=== PATIENT | female | born 1940 | race Caucasian/White ===

== ENCOUNTER → 2023-04-17 13:42 | Outpatient (BNVA) | payer MEDICARE, OTHER, SELFPAY | PROVIDERS: PCP Family Medicine; Visit Provider Internal Medicine | DX: R07.9 Chest pain, unspecified (principal) | CPT/HCPCS: 93005 ==

== ENCOUNTER → 2023-04-23 14:48 | Outpatient (BNVA) | payer MEDICARE, OTHER, SELFPAY | PROVIDERS: PCP Family Medicine; Visit Provider Internal Medicine | DX: R07.9 Chest pain, unspecified (principal); I48.91 Unspecified atrial fibrillation | CPT/HCPCS: 93005; 99205 ==

== ENCOUNTER 2023-04-28 05:56 | Outpatient (CLI) | payer MEDICARE, OTHER, SELFPAY ==
[2023-04-28] VITALS (9 sets, daily range): BP systolic 100–160; BP diastolic 62–92; PULSE 74–92; RESP 13–22; TEMP 36.6; O2SAT 90–97; BMI 29.6
--- NOTE | 2023-04-28 06:00 | XACV_ITS ---
Exam Room: 2 Ht: 157 cm Wt: 73 kg BSA: 1.82 m2 Gender: Female : 1940 Any Known Allergies: Other Exam Priority: Routine Procedure(s): Procedure Description: Diagnostic procedure Procedure Description: Left Heart Catheterization Procedure Description: Miscellaneous Procedure Description: Angio-Seal Procedure Description: Coronary Angiography Procedure Description: Pressure Wire Diagnostic Cath Status: Elective Diagnostic Findings * Left Main has no significant disease. * Circumflex has no significant disease. * Mid Left Anterior Descending to Distal Left Anterior Descending: moderate 50% stenosis, GUILLERMINA: 3 flow. * Proximal RCA has patent prior stents. Mid Right Coronary Artery: mild 40% stenosis, GUILLERMINA: 3 flow. * Coronary angiography shows right dominance. Interventional Findings * Procedure detail: Diagnostic procedure was performed through right radial access. However, guide catheter could not be engaged secondary to higher takeoff. We then switched access to right femoral artery. IV heparin was administered to maintain anticoagulation. XB 3.0 guide catheter was used to engage the left main artery. After normalization, we advanced IFR wire into distal LAD to perform FFR of mid LAD. Secondary to irregularity of rhythm and atrial fibrillation, FFR was performed with IV adenosine infusion. FFR value of 0.85 was obtained. As it was nonischemic, medical management was decided. iFR wire and guide catheter were removed. Patient left the Key Worker in a stable condition after Angio-Seal deployment. Conclusions 1. Moderate mid LAD stenosis s/p FFR with a nonischemic value of 0.85. Aggressive medical therapy.. Recommendations * Patient's symptoms related to Atrial fibrillation with RVR. We will plan on SARAH/ Cardioversion. * Continue Xarelto. * Outpatient follow up after cardioversion. Pressures Phase:Rest AO : 80 / 50 ( 62 ) @ 8:48:00 AM 73 / 58 ( 66 ) @ 8:50:00 AM 94 / 65 ( 75 ) @ 8:53:00 AM 97 / 62 ( 76 ) @ 8:53:00 AM 89 / 72 ( 78 ) @ 9:15:00 AM LV : 106 / 1 / 14 @ 8:53:00 AM 106 / 0 / 10 @ 8:53:00 AM Valves Phase:DefaultPhase AV : 8.0 @ 8:51:15 AM AV Mean Gradient: 11.0 @ 8:51:15 AM Clinical Evaluation EBL: 5mL-10mL Procedural Details Procedure Consent Obtained. Pre-Procedure Time Out. Identified patient by full name and date of as verbalized by the patient/guarantor. Does the consent match the physician's order: Yes. Accurate & Complete Informed Consent: Yes. Inpatient/Outpatient History & Physical on Chart: Yes. If H&P is completed, is and addenduem needed: No; If yes, is the addendum complete: N/A. Visualize and Verify Site with Patient/Guarantor: N/A. Relevant Radiology Images available: Yes. Pre-op teaching completed and patient verbalized understanding. The risks, benefits, and alternatives of sedation and/or procedure were discussed by physician. The patient agrees to continue. Procedure started. Current Diagnosis : Chest Pain. HA Clinical Fraility Score: 3: Managing Well. Key Worker Indications: Worsening Angina. Chest Pain Symptom Assessment: Typical Angina Symptoms. Correct patient, site and procedure confirmed by cath team. Current diagnosis: Chest Pain. PERRLA. Strong, equal hand stock lifter bilaterally. Lungs clear x 5 lobes. IV Site on Arrival: 20 gauge in the left anticubital. IV Fluids: 0.9% NaCl at KVO. 0 mL infused prior to chemical processing laborer. Pre Procedural Pulses: bilateral posterior tibial was 3+. Pre Procedural Pulses: bilateral dorsalis pedis was 3+. Pre Procedural Pulses: bilateral radial was 3+. Oxygen started at 2liters/min via nasal canula. right groin was prepped with chloroprep then draped in the usual sterile fashion. right radial was prepped with chloroprep then draped in the usual sterile fashion. Baseline sample Acquired. HR: 96 BPM. Lidocaine 1% infiltrated to the right radial. Arterial access obtained. A 5 trinidadian TIG catheter in over wire. Multiple views taken of left coronary artery. Catheter redirected to the RCA. Multiple views taken of right coronary artery. EDP Sample taken: LV 106/1,14; HR: 88 BPM; SpO2: 95%. Pullback taken: LV 106/-1,10; AO 94/65(75); Mean: 11mmHg, Peak to Peak: 8mmHg, SEP: 8sec/min; HR: 93 BPM; SpO2: 94%. Catheter removed over the exchange wire. 6 trinidadian XB 3 guide catheter was inserted over the wire. Guide catheter out. 6 trinidadian XB 3.5 guide catheter was inserted over the wire. Guide catheter out. A TR Band was successful obtaining hemostatsis at the Right Radial artery insertion site. Lidocaine 1% infiltrated to the right groin. Arterial access obtained with micropuncture set. 6 trinidadian XB 3 guide catheter was inserted over the wire. FFR guidewire was advanced through the guide catheter to lesion in the mid LAD. Adenosine off. FFR Results: 0.85. Wire out. Guide catheter out. A Right femoral angiogram was performed to determine safe placement of closure device. ACT drawn. Results 236 seconds. Therapeutic limits - pre-heparin administration 90-150 seconds and monitoring heparin during a vascular procedure >250 seconds. Lidocaine 1% infiltrated to the right groin. A Angio-Seal VIP ([place]) was successful obtaining hemostatsis at the Right Femoral artery insertion site. Post Procedure: Pulses reassessed and unchanged. PERRLA. Strong, equal hand stock lifter bilaterally. No VTE prophylaxis required. Medication's Wasted: Lidocaine 1% = 2 mL. Medication's Wasted: Nitro = 49.7 mcg. Medication's Wasted: Other = Fentanyl 50mcg Versed 1 mg. Total IV fluids: 65 mL. Complications: None. Responsiveness - Normal response to verbal stimuli; alert and oriented, PERRLA. Estimated blood loss: 5mL-10mL. Vital chart was stopped. Airway - Unaffected, no intervention required; spontaneous ventilation. Circulation: W/N/L, pulses unchanged. Nausea/Vomiting: No. Procedure completed. Patient transferred by bed to CPRU. Access Site Site: Right Radial artery Sheath Size: 6 Fr Hemostasis Method: TR Band Hemostasis Success: Successful Site: Right Femoral artery Sheath Size: 6 Fr Hemostasis Method: Angio-Seal VIP ([place]) Hemostasis Success: Successful Procedure Medications Start: 7:37 AM Stop: 7:37 AM Medication: Versed Amount: 1 mg Route: I.V. Start: 7:37 AM Stop: 7:37 AM Medication: Fentanyl Amount: 50 mcg Route: I.V. Start: 7:45 AM Stop: 7:45 AM Medication: Versed Amount: 1 mg Route: I.V. Start: 7:46 AM Stop: 7:46 AM Medication: Nitrogylcerin Amount: 200 mcg Route: I.A. Start: 7:47 AM Stop: 7:47 AM Medication: Heparin Amount: 5000 units Route: I.V. Start: 7:58 AM Stop: 7:58 AM Medication: Heparin Amount: 1000 units Route: I.V. Start: 8:03 AM Stop: 8:03 AM Medication: Nitrogylcerin Amount: 100 mcg Route: I.A. Start: 8:11 AM Stop: 8:11 AM Medication: Versed Amount: 1 mg Route: I.V. Start: 8:19 AM Stop: 8:19 AM Medication: Adenosine (Adenocard) Amount: 613 ml/hr Route: I.VGabby rodríguez I, the attending physician, have reviewed and verified all procedure medications. Yes, all medications given per verbal order History/Risk Factors Hypertension: Yes Dyslipidemia: Yes Peripheral Arterial Disease (PAD): No Myocardial Infarction (SC): No Obesity: No Renal Disease: No Tobacco Use: Never Prior Interventions PCI: No CABG: No Valve Surgery: No Report Signatures Finalized by Myles Quintero MD on 04/28/2023 09:43 AM
[2023-04-28] MEDS: aspirin 325 mg Tablet PO (06:30)
[2023-04-28] MEDS: diphenhydrAMINE 50 mg Capsule PO (06:30)
[2023-04-28 06:43] LABS: Basophils # 0.1 10^3/uL (0.0-0.1); Basophils % 0.6 %; Eosinophils # 0.2 10^3/uL (0.0-0.8); Eosinophils % 2.6 %; Hematocrit 43.3 % (36-47); Lymphocytes # 2.1 10^3/uL (0.8-4.8); Lymphocytes % 26.8 %; Mean Corpuscular HGB Conc 32.8 g/dL (30-55); Mean Corpuscular Volume 88.5 fl (85-98); Mean Platelet Volume 9.4 fL (7.4-10.4); Monocytes # 0.5 10^3/uL (0.2-0.9); Monocytes % 6.8 %; Neutrophils # 4.89 10^3/uL (1.8-7.7); Neutrophils % 62.9 %; Nucleated Red Blood Cells % 0 %; Platelet Count 270 10^3/cmm (157-399); Red Blood Count 4.89 10^6/uL (3.85-5.65); Red Cell Distribution Width 13.6 % (12.1-15.1); White Blood Count 7.77 10^3/uL (3.29-11.43)
[2023-04-28 07:03] LABS: Anion Gap 13.9 (5-19); Blood Urea Nitrogen 12 mg/dL (8-23); Calcium 9.3 mg/dL (8.5-10.5); Carbon Dioxide 26 mmol/L (22-29); Chloride 103 mmol/L (98-107); Glucose 101 mg/dL (65-115); Osmolality Calculated 288 mOsm/kg (285-295); Potassium 3.9 mmol/L (3.5-5.1); Sodium 139 mmol/L (136-145)
--- NOTE | 2023-04-28 07:32 | P.HPUD_ITS ---
Surgery/Procedure H&P Update DATE OF PROCEDURE: April 28, 2023 DATE H&P PERFORMED: 04/23/23 H&P UPDATE INFORMATION: I have reviewed H&P completed within last 30 days, I have examined patient prior to procedure and No changes to prior documentation PREOP DIAGNOSIS: Worsening angina PRIMARY INDICATION FOR PROCEDURE: Worsening angina PLANNED PROCEDURE: Operation Date: 04/28/23 07:00 Proposed Procedures p [facility] [address]84,I20.0(Left) - Myles Quintero M.D Possible percutaneous coronary intervention PATIENT REASSESSED PRIOR TO SEDATION, WITH NO CHANGE NOTED: Yes PHYSICAL EXAM: alert, oriented x 3, clear to auscultation bilaterally and regular rate & rhythm AIRWAY EVAL/ANESTHESIA PLAN: normal airway, ASA III, Local Anesthesia, Risks, benefits & alternatives of sedation and/or procedure discussed and Patient agrees to continue as planned ADDITIONAL INFORMATION: Moderate sedation
--- NOTE | 2023-04-28 08:40 | SUR.PHASEI ---
POST CATH NOTE Received patient from qc lab technician. Status post cardiac catheterization via the right radial and right femoral approach. TR band in place to the right wrist- dry and intact with no s/s of hematoma formation noted. Right femoral approach closed intra procedure with angioseal- site is dry and intact with no s/s of hematoma present. Verbal post cath instructions given which she understood well. Call light within easy reach. Informed to call for needs.
--- NOTE | 2023-04-28 09:44 | PC.NURSE ---
Patient comes to CSU from lab support service tech at 0945. She has a right radial TR-band and a right arterial sheath site that was closed with angioseal. Dressing is dry and no hematomas noted.
[2023-04-28] MEDS: sodium chloride 0.9% 1,000 ML 50 ML IV (09:49)
--- NOTE | 2023-04-28 15:42 | PC.NURSE ---
Patient comes from cath laboratory technician with a right radial TR-band. 2ml's of air is removed from TR-band at 1136. 2ml's of air is removed from TR-band at 1218. 2ml's of air is removed from TR-band at 1315. 2ml's of air is removed from TR-band at 1400. 2ml's of air is removed at 1430. 2ml's of air is removed at 1509. TR-band is removed at 1530. No hematoma is noted. Patient tolerated well.
== END 2023-04-28 17:19 | disposition home or self-care (01) ==
LOC: CCL 05:58 → CSU 10:18
PROVIDERS: PCP Family Medicine; Visit Provider Internal Medicine
DX: I25.110 Atherosclerotic heart disease of native coronary artery with unstable angina pectoris (principal); I10 Essential (primary) hypertension; E78.5 Hyperlipidemia, unspecified; I48.91 Unspecified atrial fibrillation; Z95.0 Presence of cardiac pacemaker
CPT/HCPCS: 36415; 80048; 85025; 85347; 93458; 93571; 96361; 96365; 96367; 99152; 99153; C1760; C1769; C1887; C1894; J0153; J1644; J2250; J3010; J3490; J7030; Q0163; Q9967

== ENCOUNTER 2023-05-02 10:27 | Day surgery (SDC) | payer MEDICARE, OTHER, SELFPAY ==
--- NOTE | 2023-05-02 10:33 | ECG_ITS ---
[facility] Test Date: 2023-05-02 Pat Name: Sunny Soria Department: Room: Gender: Female Assembler Final: : 1940 Requested By: Myles Quintero Order Number: [id number] Abel MD: Myles Qunitero M.D. Measurements Intervals [place] Rate: 89 P: 0 [place]: 0 QRS: -58 QRSD: 102 T: 89 QT: 385 QTc: 470 Interpretive Statements ATRIAL FIBRILLATION WITH ABERRANT CONDUCTION OR VENTRICULAR PREMATURE COMPLEXES INCOMPLETE RIGHT BUNDLE BRANCH BLOCK [90+ ms QRS DURATION, TERMINAL R IN V1/V2, 40+ ms S IN I/aVL/V4/V5/V6] LEFT ANTERIOR FASCICULAR BLOCK [QRS AXIS <= -45, QR IN I, RS IN II] POSSIBLE ANTERIOR MYOCARDIAL INFARCTION , OF INDETERMINATE AGE [30 ms Q WAVE IN V3/V4, OR R < 0.2 mV IN V4] Compared to ECG 04/23/2023 15:02:49 Ventricular premature complex(es) now present Aberrant conduction of supraventricular beat(s) now present Incomplete right bundle-branch block now present Myocardial infarct finding still present Electronically Signed On 05-02-2023 12:31:33 CDT by Myles Quintero M.D. [email or web address] urbana [email or web address]/[id number]
--- NOTE | 2023-05-02 10:34 | USCV_ITS ---
Sunny Soria Age: 82 Gender: F : 1940 Exam Date: 05/02/2023 12:13 Ordering Phys: Myles Quintero M.D ([email or web address]) Technologist: Claudio Jacob Exam Location: [facility] Indication: afib BP: / HR: Rhythm: Sinus Technical Quality: Adequate MEASUREMENTS (Male / Female) Normal Values Medications Complications None Proc. Components After anesthesia team administered sedation, we proceeded with advancing SARAH probe and images were obtained. FINDINGS Left Ventricle Normal in size and function Right Ventricle Normal in size Right Atrium Grossly normal. Pacemaker lead is seen Left Atrium Grossly dilated LA Appendage No left atrial appendage thrombus seen IA Septum Normal Mitral Valve Strucrurally normal mitral valve. Mild to moderate mitral regurgitation Aortic Valve Structurally normal aortic valve. Tricuspid Valve Structurally normal. Mild to moderate tricuspid regurgitation Pulmonic Valve Grossly normal Pericardium Normal Aorta Has moderate atherosclerotic plaque noted. CONCLUSIONS LV systolic function is normal. Left atrium is grossly dilated. No left atrial appendage thrombus seen. Mild to moderate mitral regurgitation Mild to moderate tricuspid regurgitation Moderate atherosclerotic plaque noted in the aorta Myles Quintero MD (Electronically Signed) Final Date: 03 May 2023 11:12 S
[2023-05-02 10:47] VITALS: BP 131/78; PULSE 77; RESP 20; TEMP 36.4; O2SAT 97; BMI 29.2
--- NOTE | 2023-05-02 11:06 | P.ANESASSM_ITS ---
Pre-Anesthetic Assessment Height/Weight: Height 1.57 m Weight 72.575 kg Temp Pulse Resp BP Pulse Ox O2 Del Method 97.5 F L 77 20 H 131/78 97 Room Air 05/02/23 10:47 05/02/23 10:47 05/02/23 10:47 05/02/23 10:47 05/02/23 10:47 05/02/23 10:47 Operation Date: 05/02/23 12:00 Proposed Procedures p SARAH 512115/[id number],I48.91(Not Applicable) - Bekah Stewart Cardioversion(Not Applicable) - Myles Quintero M.D Familial anesthetic complications: None Was Beta Anh taken within 24 hours: Yes Was Clonidine taken within 24 hours: N/A Last intake: Intake Last Liquid Date 05/01/23 Last Liquid Time 19:00 Last Solid Date 05/01/23 Last Solid Time 16:00 Social No alcohol and No tobacco Exam alert, oriented x 3, clear to auscultation bilaterally and regular rate & rhythm Airway Mallampati: Class II Dentition: other (multiple missing) CV/HEM Atrial Fibrillation (pacemaker), Stable Angina, Coronary Artery Disease (Moderate LAD stenosis, medically treated) and Hypertension Anesthetic Plan ASA status: 3 Anesthesia: MAC Risk of > 500 ml blood loss (7ml/kg in children): No Medications/Allergies Home Medications Medication Instructions Recorded Confirmed Last Taken Type amlodipine 5 mg tablet (Norvasc) 5 mg PO DAILY 04/17/23 04/30/23 05/02/23 History atenolol 25 mg tablet 25 mg PO DAILY 04/17/23 04/30/23 05/02/23 History nitroglycerin 0.4 mg sublingual 0.4 mg sublingual Q5M PRN Pain 04/17/23 04/30/23 Unknown History tablet (Nitrostat) acetaminophen 500 mg tablet 500 mg PO Q6H PRN Pain 04/23/23 04/30/23 05/01/23 History (Tylenol Extra Strength) alirocumab 150 mg/mL subcutaneous 150 mg SUBCUT Q14D 04/23/23 04/30/23 04/30/23 History pen injector (Praluent Pen) rivaroxaban 20 mg tablet (Xarelto) 20 mg PO DAILY 04/23/23 04/30/23 05/01/23 History tramadol 50 mg tablet 50 mg PO BID PRN Pain 04/23/23 04/30/23 05/01/23 History metoprolol tartrate 50 mg tablet 50 mg PO BID #28 tabs 04/24/23 04/30/23 05/02/23 Rx Allergies Allergy/AdvReac Type Severity Reaction Status Date / Time Crhxiod-RHN-CvE Reductase Allergy Mild ADR-Muscle Verified 04/28/23 08:24 Inhibitor Pain codeine Allergy Unknown Unknown Verified 04/28/23 08:24 nitrofurantoin Allergy Unknown Unknown Verified 04/28/23 08:24 [From Macrobid] [facility] Anesthesia Medical History A-fib Coronary artery disease HTN (hypertension) Hyperlipemia Pacemaker Data Anesthesia Cardiac Studies: No Data to Display
[2023-05-02] MEDS: sodium chloride 0.9% 1,000 ML 30 ML IV (11:10)
--- NOTE | 2023-05-02 11:51 | W.PM.OPSUD ---
Surgery/Procedure H&P Update DATE OF PROCEDURE: May 02, 2023 DATE H&P PERFORMED: 04/23/23 H&P UPDATE INFORMATION: I have reviewed H&P completed within last 30 days, I have examined patient prior to procedure and Changes to prior documentation as noted here CHANGES TO PREVIOUS DOCUMENTATION: Patient is staying in afib and becomes very symptomatic with it. PREOP DIAGNOSIS: Atrial fibrillation PRIMARY INDICATION FOR PROCEDURE: Atrial fibrillation PLANNED PROCEDURE: Operation Date: 05/02/23 12:00 Proposed Procedures p SARAH [id number],I48.91(Not Applicable) - Myles Quintero M.D s Cardioversion(Not Applicable) - Myles Quintero M.D
[2023-05-02 12:30] VITALS: BP 92/58; PULSE 63; RESP 18; TEMP 36.1; O2SAT 95
--- NOTE | 2023-05-02 12:37 | PM.PROC ---
Procedure Note: Date of procedure: 05/02/23 Pre-procedure diagnosis: Atrial fibrillation Post-procedure diagnosis: other (Normal sinus rhythm) Procedure: SARAH/Cardioversion: After anesthesia team administered sedation, we proceeded with transesophageal echocardiogram. Left atrial appendage thrombus was ruled out. With proceeded with cardioversion. Patient was successfully cardioverted with synchronized cardioversion with 1 shock of 200 J energy. Patient was in normal sinus rhythm at the end of procedure. Performing Provider: Myles Quintero Complications: None Pathology: none sent Condition: stable Disposition: same day Coding Level of Care Code Acute Code for [facility]
[2023-05-02 12:45] VITALS: BP 118/67; PULSE 65; RESP 16; O2SAT 98
--- NOTE | 2023-05-02 12:46 | ECG_ITS ---
[facility] Test Date: 2023-05-02 Pat Name: Sunny Soria Department: Room: Gender: Female Reconsignment Clerk: : 1940 Requested By: Myles Quintero Order Number: [id number] Abel MD: Myles Quintero M.D. Measurements Intervals [place] Rate: 59 P: 209 [place]: 212 QRS: -53 QRSD: 97 T: 30 QT: 404 QTc: 403 Interpretive Statements ELECTRONIC ATRIAL PACEMAKER LOW QRS VOLTAGE IN PRECORDIAL LEADS [QRS DEFLECTION < 1.0 mV IN CHEST LEADS] PATTERN CONSISTENT WITH PULMONARY DISEASE LEFT ANTERIOR FASCICULAR BLOCK [QRS AXIS <= -45, QR IN I, RS IN II] NONSPECIFIC T-WAVE ABNORMALITY Compared to ECG 05/02/2023 11:01:03 Low QRS voltage now present T-wave abnormality now present Atrial fibrillation no longer present Ventricular premature complex(es) no longer present Myocardial infarct finding no longer present Electronically Signed On 05-02-2023 19:44:38 CDT by Myles Quintero M.D. [id number]
--- NOTE | 2023-05-02 13:20 | ANE.PACU2 ---
Inpatient post-anesthesia follow up: Airway intact: Yes Vital signs: Temperature 97.0 F Pulse Rate 65 Respiratory Rate 16 Blood Pressure 118/67 Pulse Oximetry 98 Oxygen Delivery Me thod Room Air Oxygen Flow Rate Fraction of Inspir ed Oxygen Hydration adequate: Yes Nausea and vomiting: No Pain level: 1 Mental status: Baseline
== END 2023-05-02 13:20 | disposition home or self-care (01) ==
PROVIDERS: PCP Family Medicine; Visit Provider Internal Medicine
PROC: (CPT 93312; principal; 2023-05-02 12:00)
PROC: 5A2204Z Restoration of Cardiac Rhythm, Single (ICD-10-PCS; 2023-05-02 12:00)
DX: I48.91 Unspecified atrial fibrillation (principal); I08.1 Rheumatic disorders of both mitral and tricuspid valves; I45.10 Unspecified right bundle-branch block; Z95.0 Presence of cardiac pacemaker; I25.10 Atherosclerotic heart disease of native coronary artery without angina pectoris; I10 Essential (primary) hypertension
CPT/HCPCS: 92960; 93005; J2704; J7030

== ENCOUNTER → 2023-05-05 09:23 | Outpatient (BNVA) | payer MEDICARE, OTHER, SELFPAY | PROVIDERS: PCP Family Medicine; Visit Provider Nurse Practitioner Family | DX: I20.0 Unstable angina (principal); I48.91 Unspecified atrial fibrillation; I10 Essential (primary) hypertension; Z95.0 Presence of cardiac pacemaker | CPT/HCPCS: 93005 ==

== ENCOUNTER → 2023-06-24 13:50 | Outpatient (BNVA) | payer MEDICARE, OTHER, SELFPAY | PROVIDERS: PCP Family Medicine; Referring Provider Family Medicine; Visit Provider Nurse Practitioner Family | DX: L57.0 Actinic keratosis (principal); L81.4 Other melanin hyperpigmentation; L57.8 Other skin changes due to chronic exposure to nonionizing radiation; D18.01 Hemangioma of skin and subcutaneous tissue; L82.1 Other seborrheic keratosis; Z85.820 Personal history of malignant melanoma of skin; D48.5 Neoplasm of uncertain behavior of skin | CPT/HCPCS: 11102; 17000; 99203 ==

== ENCOUNTER 2023-07-23 11:44 | Outpatient (CLI) | payer MEDICARE, OTHER, SELFPAY ==
--- NOTE | 2023-07-23 11:50 | NM_ITS ---
WS: [id number] NUCLEAR MEDICINE 24 HOUR I-123 THYROID UPTAKE INDICATION: Thyroid disorder. History of nodule. Abnormal thyroid function studies. TECHNIQUE: I-123 24 HOUR THYROID UPTAKE WITH PLANAR IMAGING. 111 UCI I-123 COMPARISON: None available FINDINGS: Normal symmetric homogenous thyroid uptake at 24 hours. No cold or hot nodules visualized. Recommend correlation with thyroid ultrasound if available. 24-hour thyroid uptake at 12.42% within normal limits. NORMAL 24H THRYOID UPTAKE 8-35% IMPRESSION: 24-hour thyroid uptake 12.42% within normal limits
== END 2023-07-23 11:45 | disposition home or self-care (01) ==
PROVIDERS: PCP Family Medicine; Visit Provider Specialist
DX: E07.9 Disorder of thyroid, unspecified (principal)
CPT/HCPCS: 78014; A9516

== ENCOUNTER → 2023-08-15 10:37 | Outpatient (BNVA) | payer MEDICARE, OTHER, SELFPAY | PROVIDERS: PCP Family Medicine; Visit Provider Internal Medicine Cardiovascular Disease | DX: I48.91 Unspecified atrial fibrillation (principal); Z79.01 Long term (current) use of anticoagulants; Z95.0 Presence of cardiac pacemaker; I10 Essential (primary) hypertension; E78.5 Hyperlipidemia, unspecified; Z98.890 Other specified postprocedural states; Z87.891 Personal history of nicotine dependence | CPT/HCPCS: 99214 ==

== ENCOUNTER → 2023-09-10 11:02 | Outpatient (BNVA) | payer MEDICARE, OTHER, SELFPAY | PROVIDERS: PCP Family Medicine; Referring Provider Specialist; Visit Provider Internal Medicine | DX: E04.1 Nontoxic single thyroid nodule (principal); E05.90 Thyrotoxicosis, unspecified without thyrotoxic crisis or storm; I48.91 Unspecified atrial fibrillation; R63.4 Abnormal weight loss; Z68.28 Body mass index [BMI] 28.0-28.9, adult | CPT/HCPCS: 36415; 83516; 84439; 84443; 84480; 86376; 86800; 99204 ==

== ENCOUNTER → 2023-10-01 13:28 | Outpatient (BNVA) | payer MEDICARE, OTHER, SELFPAY | PROVIDERS: PCP Family Medicine; Visit Provider Surgery | DX: Z12.11 Encounter for screening for malignant neoplasm of colon (principal) | CPT/HCPCS: 99024; 99203 ==

== ENCOUNTER → 2023-10-15 10:57 | Outpatient (BNVA) | payer MEDICARE, OTHER, SELFPAY | PROVIDERS: PCP Family Medicine; Visit Provider Nurse Practitioner Family | DX: I48.0 Paroxysmal atrial fibrillation (principal); I25.10 Atherosclerotic heart disease of native coronary artery without angina pectoris; I10 Essential (primary) hypertension; Z95.0 Presence of cardiac pacemaker; Z87.891 Personal history of nicotine dependence; Z79.01 Long term (current) use of anticoagulants | CPT/HCPCS: 99214 ==

== ENCOUNTER 2023-10-22 07:24 | Outpatient (CLI) | payer MEDICARE, OTHER, SELFPAY ==
[2023-10-22 07:49] VITALS: BMI 28.3
--- NOTE | 2023-10-22 07:54 | ECG_ITS ---
[facility] Test Date: 2023-10-22 Pat Name: Sunny Soria Department: Room: Gender: Female Document Processor: : 1940 Requested By: Roxanne Matthew Order Number: [id number] Abel MD: Maurisio Bess M.D. Interpretive Statements NAME OF STUDY: LEXISCAN SESTAMIBI STRESS TEST INDICATION: CHEST PAIN; RAY; MODERATE CAD PROCEDURE: At the baseline, the EKG revealed atrial fibrillation with a controlled ventricular response rate of 88 bpm. Diffuse nonspecific T wave changes. Minimal left axis deviation. The baseline heart was 85 bpm with a blood pressue of 131/86 mm of Hg Lexiscan was infused over a period of 20 seconds. A total of 0.4 milligrams of Lexiscan was infused. The stress phase was continued for a total of 5 minutes. Heart rate at the end of the stress phase was 91 bpm with a blood pressure 105/76 mm of Hg. The EKG at the peak infusion revealed no significant changes. Sestamibi was injected 20 seconds after the Lexiscan infusion. Heart rate at the end of the recovery phase was 51 bpm with a blood pressure of 100/67 mm of Hg. CONCLUSION: 1. No significant EKG changes with the LexiScan infusion 2. No LexiScan induced chest pain or cardiac arrhythmia 3. Normal blood pressure and heart rate response 4. Sestamibi/sestamibi perfusion scan pending; see separate report. Electronically Signed On 10-27-2023 23:49:52 CDT by Mauirsio Bess M.D. [email or web address]ologic[facility].Peer60/store/[id number]
--- NOTE | 2023-10-22 07:54 | NMCV_ITS ---
NM kathi perf SPECT r/s* [id number] Sunny Soria Age: 83 Gender: F : 1940 Exam Date: 10/22/2023 08:07 Ordering Phys: Roxanne Matthew Technologist: KM Hall Exam Location: [facility] Indications: ATHEROSCLEROTIC HEART DISEASE STRESS TEST Please see separate [facility] for full findings IMAGE PROTOCOL Rest/Stress 1 Lexiscan Day Radiopharmaceutical Dose (mCi) Administration Site Administered by Rest: Tc-99m 10.4 IV MK Martin Sestamibi Stress:Tc-99m 32.5 IV MK Martin Sestamibi Rest: 22-Oct-2023 60 Discovery 630 Stress: 22-Oct-2023 30 Discovery 630 0.4mg Lexiscan. Supine position only as patient was unable to lay prone. SPECT RESULTS Technical Quality: Excellent Raw Data Analysis: Normal Image Corrections: No attenuation or motion correction applied Summed Stress Score: 2 Summed Rest Score: 8 Summed Difference Score: 0 PERFUSION FINDINGS Small area of moderately decreased tracer uptake involving the mid inferolateral region with no significant reversibility FUNCTIONAL RESULTS (calculated via Gated SPECT) Stress Image LV EF (%): 85 Stress EDV (mL):59 TID: 1 Stress ESV (mL):9 FUNCTIONAL FINDINGS: Segmental wall motion analysis revealing no gross wall motion abnormalities IMPRESSIONS 1. Myocardial perfusion imaging revealing a small area of persistent decreased tracer uptake involving the mid inferolateral region suggestive of myocardial scarring versus attenuation artifact. 2. Normal LV ejection fraction of 59% 85%. 3. LV wall motion analysis revealing no gross wall motion abnormalities. 4. Normal LV volume Low probability for coronary ischemia, based on the above findings Dr Maurisio Bess MD FACC (Electronically Signed) Final Date: 22 October 2023 13:26 S
[2023-10-22] MEDS: regadenoson 0.4 Mg/5 ml Syringe 0.400000000000000022 MG IVP (09:00)
[2023-10-22 09:29] VITALS: BP 106/74; PULSE 85
== END 2023-10-22 07:25 | disposition home or self-care (01) ==
LOC: CDL 07:25
PROVIDERS: PCP Family Medicine; Visit Provider Nurse Practitioner Family
DX: R07.9 Chest pain, unspecified (principal); R06.00 Dyspnea, unspecified; I25.10 Atherosclerotic heart disease of native coronary artery without angina pectoris
CPT/HCPCS: 36415; 78452; 93017; 96374; A9500; J2785

== ENCOUNTER 2023-11-03 08:27 | Outpatient (CLI) | payer MEDICARE, OTHER, SELFPAY ==
[2023-11-03 09:17] LABS: Free T4 Free Thyroxine 1.15 ng/dL (0.82-1.77); Thyroid Stimulating Hormone 0.82 uIU/mL (0.27-4.20)
[2023-11-04 10:40] LABS: T3 Total 110 ng/dL (76-181)
== END 2023-11-03 08:28 | disposition home or self-care (01) ==
LOC: LAB 08:28
PROVIDERS: PCP Family Medicine; Visit Provider Internal Medicine
DX: E04.1 Nontoxic single thyroid nodule (principal); E05.90 Thyrotoxicosis, unspecified without thyrotoxic crisis or storm
CPT/HCPCS: 84439; 84443; 84480

== ENCOUNTER → 2023-11-06 13:01 | Outpatient (BNVA) | payer MEDICARE, OTHER, SELFPAY | PROVIDERS: PCP Family Medicine; Visit Provider Internal Medicine | DX: I25.118 Atherosclerotic heart disease of native coronary artery with other forms of angina pectoris (principal); I48.0 Paroxysmal atrial fibrillation; E78.5 Hyperlipidemia, unspecified; I10 Essential (primary) hypertension; Z95.0 Presence of cardiac pacemaker; Z87.891 Personal history of nicotine dependence | CPT/HCPCS: 99214 ==

== ENCOUNTER → 2023-11-11 11:04 | Outpatient (BNVA) | payer MEDICARE, OTHER, SELFPAY | PROVIDERS: PCP Family Medicine; Visit Provider Internal Medicine | DX: I48.0 Paroxysmal atrial fibrillation (principal); E05.90 Thyrotoxicosis, unspecified without thyrotoxic crisis or storm; E04.1 Nontoxic single thyroid nodule; R63.4 Abnormal weight loss; Z68.29 Body mass index [BMI] 29.0-29.9, adult | CPT/HCPCS: 99214 ==

== ENCOUNTER 2023-11-17 10:27 | Day surgery (SDC) | payer MEDICARE, OTHER, SELFPAY ==
--- NOTE | 2023-11-17 10:38 | ECG_ITS ---
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 Measurements Intervals [place] Rate: 83 P: 0 NC: 0 QRS: -52 QRSD: 100 T: 33 QT: 357 QTc: 421 Interpretive Statements ATRIAL FIBRILLATION PATTERN CONSISTENT WITH PULMONARY DISEASE INCOMPLETE RIGHT BUNDLE BRANCH BLOCK [90+ ms QRS DURATION, TERMINAL R IN V1/V2, 40+ ms S IN I/aVL/V4/V5/V6] LEFT ANTERIOR FASCICULAR BLOCK [QRS AXIS <= -45, QR IN I, RS IN II] NONSPECIFIC T-WAVE ABNORMALITY Compared to ECG 05/02/2023 12:46:00 Incomplete right bundle-branch block now present Atrial-paced complex(es) or rhythm no longer present T-wave abnormality still present Electronically Signed On 11-17-2023 12:51:03 CDT by Myles Quintero M.D. [id number]
[2023-11-17 10:44] VITALS: BP 125/78; PULSE 90; RESP 18; TEMP 36.5; O2SAT 95; BMI 28.3
[2023-11-17] MEDS: sodium chloride 0.9% 1,000 ML 30 ML IV (11:02)
--- NOTE | 2023-11-17 12:11 | W.PM.OPSUD ---
Surgery/Procedure H&P Update DATE OF PROCEDURE: November 17, 2023 DATE H&P PERFORMED: 11/06/23 H&P UPDATE INFORMATION: I have reviewed H&P completed within last 30 days, I have examined patient prior to procedure and No changes to prior documentation PREOP DIAGNOSIS: Atrial fibrillation PRIMARY INDICATION FOR PROCEDURE: Atrial fibrillation PLANNED PROCEDURE: Operation Date: 11/17/23 12:00 Proposed Procedures p Cardioversion(Not Applicable) - Myles Quintero M.D Anesthesia team available for cardioversion.
[2023-11-17 12:26] VITALS: BP 93/52; PULSE 67; RESP 10; TEMP 36.3; O2SAT 94
--- NOTE | 2023-11-17 12:26 | PM.PROC ---
Procedure Note: Date of procedure: 11/17/23 Pre-procedure diagnosis: Atrial fibrillation Post-procedure diagnosis: other (Normal sinus rhythm) Procedure: Procedure detail: After anesthesia team sedated the patient, we proceed with synchonized cardioversion with 200J shock x 1. Patient converted successfully back to normal sinus rhythm. Performing Provider: Myles Quintero Complications: None Condition: stable Disposition: same day (Discharge home) Coding Level of Care Code Acute Code for Lincoln Cooper
[2023-11-17 12:37] VITALS: BP 95/57; PULSE 60; RESP 14; O2SAT 95
--- NOTE | 2023-11-17 12:37 | ECG_ITS ---
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 Measurements Intervals [place] Rate: 61 P: 250 MI: 218 QRS: -51 QRSD: 104 T: 8 QT: 421 QTc: 424 Interpretive Statements ELECTRONIC ATRIAL PACEMAKER LEFT ANTERIOR FASCICULAR BLOCK [QRS AXIS <= -45, QR IN I, RS IN II] POSSIBLE ANTERIOR MYOCARDIAL INFARCTION , OF INDETERMINATE AGE [30 ms Q WAVE IN V3/V4, OR R < 0.2 mV IN V4] Compared to ECG 11/17/2023 10:52:28 Myocardial infarct finding now present Atrial fibrillation no longer present Incomplete right bundle-branch block no longer present T-wave abnormality no longer present Electronically Signed On 11-17-2023 12:54:19 CDT by Myles Quintero M.D. [id number]
--- NOTE | 2023-11-17 13:05 | ANES.PREANE2 ---
Pre-Anesthetic Assessment Height/Weight: Height 1.57 m Weight 70.307 kg Temp Pulse Resp BP Pulse Ox O2 Del Method 97.3 F L 60 14 95/57 95 Room Air 11/17/23 12:26 11/17/23 12:37 11/17/23 12:37 11/17/23 12:37 11/17/23 12:37 11/17/23 12:37 Preop Diagnosis: Atrial fibrillation Operation Date: 11/17/23 12:00 Proposed Procedures p Cardioversion(Not Applicable) - Myles Quintero M.D Familial anesthetic complications: none Was Beta Anh taken within 24 hours: Yes Was Clonidine taken within 24 hours: N/A Last intake: Intake Last Liquid Date 11/16/23 Last Liquid Time 22:00 Last Solid Date 11/16/23 Last Solid Time 20:00 Social No alcohol and No tobacco Exam alert, oriented x 3 and clear to auscultation bilaterally Airway Submandibular: within normal limits Cervical ROM: within normal limits Mallampati: Class II Dentition: full CV/HEM Atrial Fibrillation, Coronary Artery Disease and Hypertension Pacemaker Metabolic Hyperlipidemia Anesthetic Plan ASA status: 3 Anesthesia: MAC Medications/Allergies Home Medications Medication Instructions Recorded Confirmed Last Taken Type amlodipine 5 mg tablet (Norvasc) 5 mg PO DAILY 04/17/23 11/13/23 11/17/23 History nitroglycerin 0.4 mg sublingual 0.4 mg sublingual Q5M PRN Pain 04/17/23 11/13/23 Unknown History tablet (Nitrostat) acetaminophen 500 mg tablet 500 mg PO Q6H PRN Pain 04/23/23 11/13/23 11/16/23 History (Tylenol Extra Strength) alirocumab 150 mg/mL subcutaneous 150 mg SUBCUT Q14D 04/23/23 11/13/23 11/12/23 History pen injector (Praluent Pen) rivaroxaban 20 mg tablet (Xarelto) 20 mg PO DAILY 04/23/23 11/13/23 11/16/23 History tramadol 50 mg tablet 50 mg PO BID PRN Pain 04/23/23 11/13/23 11/16/23 History metoprolol tartrate 50 mg tablet 75 mg (1.5 x 50 mg) PO BID #135 09/05/23 11/13/23 11/17/23 Rx tabs Allergies Allergy/AdvReac Type Severity Reaction Status Date / Time Tmleaxs-HLT-DoA Reductase Allergy Mild ADR-Muscle Verified 11/13/23 08:19 Inhibitor Pain codeine Allergy Unknown Unknown Verified 11/13/23 08:19 nitrofurantoin Allergy Unknown Unknown Verified 11/13/23 08:19 [From Macrobid] Current Medications Generic Name Dose Route Start Last Admin Trade Name Freq PRN Reason Stop Dose Admin Sodium Chloride 1,000 mls @ 30 mls/hr 11/17/23 10:45 11/17/23 12:39 Sodium Chloride 0.9% IV 11/18/23 10:44 Infused .Q24H SAURAV Infusion PFSH Anesthesia Medical History Anticoagulation adequate with anticoagulant therapy A-fib Coronary artery disease Hyperlipemia HTN (hypertension) Pacemaker Surgical History History of radiofrequency ablation (RFA) procedure for cardiac arrhythmia Social History Smoking and tobacco/nicotine status: former use of tobacco/nicotine Quit status (tobacco/nicotine): has quit using Year quit tobacco: been 30 plus years Alcohol intake: never Substance/Drug Use: never Data Anesthesia Cardiac Studies: Transesophageal Echocardiogram 05/02/23 Sestamibi Stress Test (Cardiology) 10/22/23
--- NOTE | 2023-11-17 13:06 | ANE.PACU2 ---
Inpatient post-anesthesia follow up: Airway intact: Yes Vital signs: Temperature 97.3 F Pulse Rate 60 Respiratory Rate 14 Blood Pressure 95/57 Pulse Oximetry 95 Oxygen Delivery Me thod Room Air Oxygen Flow Rate Fraction of Inspir ed Oxygen Hydration adequate: Yes Nausea and vomiting: No Pain level: 2 Mental status: Baseline
[2023-11-17 13:10] VITALS: BP 120/65; PULSE 61; RESP 16; O2SAT 95
== END 2023-11-17 13:14 | disposition home or self-care (01) ==
PROVIDERS: PCP Family Medicine; Visit Provider Internal Medicine
PROC: 5A2204Z Restoration of Cardiac Rhythm, Single (ICD-10-PCS; principal; 2023-11-17 12:00)
DX: Z01.810 Encounter for preprocedural cardiovascular examination (principal)
CPT/HCPCS: 92960; 93005; J2704; J7030

== ENCOUNTER → 2023-12-03 15:19 | Outpatient (BNVA) | payer MEDICARE, OTHER, SELFPAY | PROVIDERS: PCP Family Medicine; Visit Provider Nurse Practitioner Family | DX: I48.0 Paroxysmal atrial fibrillation (principal); I45.10 Unspecified right bundle-branch block; I10 Essential (primary) hypertension; Z95.0 Presence of cardiac pacemaker | CPT/HCPCS: 93005; 99214 ==

== ENCOUNTER → 2024-01-21 10:12 | Outpatient (BNVA) | payer MEDICARE, OTHER, SELFPAY | PROVIDERS: PCP Family Medicine; Visit Provider Internal Medicine | DX: Z45.010 Encounter for checking and testing of cardiac pacemaker pulse generator [battery] (principal) | CPT/HCPCS: 93296 ==

== ENCOUNTER → 2024-01-21 10:25 | Outpatient (BNVA) | payer MEDICARE, OTHER, SELFPAY | PROVIDERS: PCP Family Medicine; Visit Provider Specialist | DX: M19.011 Primary osteoarthritis, right shoulder (principal); M25.511 Pain in right shoulder | CPT/HCPCS: 20610; 73030; J1100; J2795; J3301 ==

== ENCOUNTER 2024-01-29 09:04 | Outpatient (CLI) | payer MEDICARE, OTHER, SELFPAY ==
[2024-01-29 10:26] LABS: Free T4 Free Thyroxine 1.29 ng/dL (0.82-1.77); Thyroid Stimulating Hormone 0.97 uIU/mL (0.27-4.20)
[2024-01-30 08:09] LABS: T3 Total 101 ng/dL (76-181)
== END 2024-01-29 09:05 | disposition home or self-care (01) ==
LOC: LAB 09:05
PROVIDERS: PCP Family Medicine; Visit Provider Internal Medicine
DX: I48.0 Paroxysmal atrial fibrillation (principal); E05.90 Thyrotoxicosis, unspecified without thyrotoxic crisis or storm; E04.1 Nontoxic single thyroid nodule
CPT/HCPCS: 36415; 84439; 84443; 84480

== ENCOUNTER → 2024-02-05 10:36 | Outpatient (BNVA) | payer MEDICARE, OTHER, SELFPAY | PROVIDERS: PCP Family Medicine; Visit Provider Internal Medicine | DX: I48.0 Paroxysmal atrial fibrillation (principal); E04.1 Nontoxic single thyroid nodule; E05.90 Thyrotoxicosis, unspecified without thyrotoxic crisis or storm; R63.4 Abnormal weight loss; Z68.28 Body mass index [BMI] 28.0-28.9, adult | CPT/HCPCS: 99214 ==

== ENCOUNTER → 2024-04-01 15:48 | Outpatient (BNVA) | payer MEDICARE, OTHER, SELFPAY | PROVIDERS: PCP Family Medicine; Visit Provider Internal Medicine Cardiovascular Disease | DX: I25.10 Atherosclerotic heart disease of native coronary artery without angina pectoris (principal); I48.0 Paroxysmal atrial fibrillation; I10 Essential (primary) hypertension; Z95.0 Presence of cardiac pacemaker; Z87.891 Personal history of nicotine dependence; Z79.01 Long term (current) use of anticoagulants | CPT/HCPCS: 99214 ==

== ENCOUNTER → 2024-06-08 10:45 | Outpatient (BNVA) | payer MEDICARE, OTHER, SELFPAY | PROVIDERS: PCP Family Medicine; Visit Provider Nurse Practitioner Family | DX: L81.4 Other melanin hyperpigmentation (principal); L57.8 Other skin changes due to chronic exposure to nonionizing radiation; D18.01 Hemangioma of skin and subcutaneous tissue; L82.1 Other seborrheic keratosis; Z85.820 Personal history of malignant melanoma of skin; L57.0 Actinic keratosis | CPT/HCPCS: 17000; 99213 ==

== ENCOUNTER 2024-07-09 14:07 | Emergency (ER) | payer MEDICARE, OTHER, SELFPAY ==
[2024-07-09 14:20] VITALS: BP 121/72; PULSE 83; RESP 16; TEMP 36.4; O2SAT 95; BMI 28.3
--- NOTE | 2024-07-09 14:34 | CTR_ITS ---
PROCEDURE INFORMATION: Exam: CT Head Without Contrast Exam date and time: 07/09/2024 3:19 PM Age: 84 years old Clinical indication: Pain; Headache not specified; Additional info: Right sided headache TECHNIQUE: Imaging protocol: Computed tomography of the head without contrast. Radiation optimization: All CT scans at this facility use at least one of these dose optimization techniques: automated exposure control; mA and/or kV adjustment per patient size (includes targeted exams where dose is matched to clinical indication); or iterative reconstruction. COMPARISON: CT angio headneck* [id number] 07/09/2024 3:19 PM RADIATION DOSE METRICS: Total DLP (mGy-cm): 1124.2 FINDINGS: Brain: No intracranial hemorrhage. There is global parenchymal volume loss. Periventricular white matter hypoattenuation is nonspecific but most likely due to small vessel disease. No evidence of acute territorial infarct or cerebral edema. No mass effect or midline shift. Cerebral ventricles: Prominent ventricles likely secondary to volume loss. Paranasal sinuses: Visualized sinuses are unremarkable. No fluid levels. Mastoid air cells: Visualized mastoid air cells are well aerated. Bones: Unremarkable. No acute fracture. Soft tissues: Unremarkable. CT/CT head wo con* [id number] IMPRESSION: No acute intracranial findings.
--- NOTE | 2024-07-09 14:34 | CTR_ITS ---
PROCEDURE INFORMATION: Exam: CTA Head With Contrast, Arteriography Exam date and time: 07/09/2024 3:19 PM Age: 84 years old Clinical indication: Pain; Headache; Additional info: Right sided head pain/severe nausea TECHNIQUE: Imaging protocol: Computed tomographic angiography of the head with contrast. Exam focused on the arteries. 3D rendering (Not supervised by radiologist): MIP and/or 3D reconstructed images were created by the technologist. Radiation optimization: All CT scans at this facility use at least one of these dose optimization techniques: automated exposure control; mA and/or kV adjustment per patient size (includes targeted exams where dose is matched to clinical indication); or iterative reconstruction. Contrast material: OMNIPAQUE 350; Contrast volume: 100 ml; Contrast route: INTRAVENOUS (IV); COMPARISON: CT head wo con* [id number] 07/09/2024 3:19 PM RADIATION DOSE METRICS: Total DLP (mGy-cm): 365.4 FINDINGS: ANTERIOR CIRCULATION: Right internal carotid artery: Intracranial segment is patent with no significant stenosis. No aneurysm. Atherosclerotic calcification of the right carotid siphon. Right middle cerebral artery: No occlusion or significant stenosis. No aneurysm. Right anterior cerebral artery: No occlusion or significant stenosis. No aneurysm. Left internal carotid artery: Intracranial segment is patent with no significant stenosis. No aneurysm. Atherosclerotic calcification of the left carotid siphon. Left middle cerebral artery: No occlusion or significant stenosis. No aneurysm. Left anterior cerebral artery: No occlusion or significant stenosis. No aneurysm. POSTERIOR CIRCULATION: Right vertebral artery: No occlusion or significant stenosis. No aneurysm. Left vertebral artery: No occlusion or significant stenosis. No aneurysm. Basilar artery: No occlusion or significant stenosis. No aneurysm. Right posterior cerebral artery: No occlusion or significant stenosis. No aneurysm. Left posterior cerebral artery: No occlusion or significant stenosis. No aneurysm. Brain: No definite mass, mass effect, or midline shift. Cerebral ventricles: No ventriculomegaly. Bones/joints: Unremarkable. No acute fracture. Soft tissues: Unremarkable. PROCEDURE INFORMATION: Exam: CTA Neck With Contrast Exam date and time: 07/09/2024 3:19 PM Age: 84 years old Clinical indication: Pain; Headache; Additional info: Right sided head pain/severe nausea TECHNIQUE: Imaging protocol: Computed tomographic angiography of the neck with contrast. Exam focused on the cervical segments of the vasculature. 3D rendering (Not supervised by radiologist): MIP and/or 3D reconstructed images were created by the technologist. Radiation optimization: All CT scans at this facility use at least one of these dose optimization techniques: automated exposure control; mA and/or kV adjustment per patient size (includes targeted exams where dose is matched to clinical indication); or iterative reconstruction. Contrast material: OMNIPAQUE 350; Contrast volume: 100 ml; Contrast route: INTRAVENOUS (IV); COMPARISON: CT head wo con* [id number] 07/09/2024 3:19 PM RADIATION DOSE METRICS: Total DLP (mGy-cm): 365.4 FINDINGS: Right common carotid artery: No stenosis. No dissection or occlusion. Right internal carotid artery: Calcified plaque in the proximal right ICA with mild stenosis. Right external carotid artery: No occlusion or stenosis of the origin. Left common carotid artery: No stenosis. No dissection or occlusion. Left internal carotid artery: Calcified plaque in the proximal left ICA with mild stenosis. Left external carotid artery: No occlusion or stenosis of the origin. Right vertebral artery: No stenosis. No dissection or occlusion. Left vertebral artery: No stenosis. No dissection or occlusion. Left subclavian artery: Mild plaque with mild stenosis at the origin of the left subclavian artery. Thyroid: Nodular enlargement right lobe of the thyroid gland. Soft tissues: Normal. No significant soft tissue swelling. Bones/joints: Diffuse cervical spondylosis. Mild anterolisthesis C3-C4. CT/CT angio headneck* [id number] IMPRESSION: No large vessel stenosis or occlusion. IMPRESSION: 1. Calcified plaque in the proximal right ICA with mild stenosis. 2. Calcified plaque in the proximal left ICA with mild stenosis. 3. Nodular enlargement right lobe of the thyroid gland. Consider non urgent thyroid ultrasound. REFERENCES: NASCET CRITERIA. The degree of stenosis in the cervical segment of the internal carotid artery is based on NASCET criteria. Normal is no stenosis. Mild is less than 50% stenosis. Moderate is 50-69% stenosis. Severe is 70% to 99% stenosis. Total occlusion is no detectable patent lumen.
--- NOTE | 2024-07-09 14:36 | ED_ITS ---
HPI - General Adult 2 General: Chief complaint: General Medical Stated complaint: R Head Pain Time Seen by Provider: 07/09/24 14:25 Source: patient Mode of arrival: ambulatory Limitations: no limitations History of Present Illness: Patient is an 84-year-old female with past medical history of A-fib on anticoagulation, pacemaker, hypertension, and hyperlipidemia who presents the emergency department with right sided head pain that has been bothering her for almost a week. Patient states she initially went to primary care, had lab work drawn she has not heard the results back yet. She was told that it was possibly giant cell arteritis, was started on low-dose steroids. She then went to ophthalmology and had testing done, was told there that it might be shingles and was started on medications for this and she was also started on tramadol for pain. Patient states tramadol had been helping some but today pain was too severe, she is also been having severe nausea. Denies ever having this pain before, no history of migraine or other types of headaches. Denies any head trauma. She is not reporting any visual changes, focal neurological deficits, or other concerning symptoms at this time. Does report a history of colon cancer. Patient states pain is severe and present at this time, just wants it to go away. MD complaint: Right sided temporal headache Onset (ago): day(s) Pain Consistency: constant Relieving factors: none Exacerbating factors: none Associated symptoms: Reports headache(s) and nausea; Deny chest pain, dyspnea, rash, palpitations or vomiting Treatments prior to arrival: other (Prescription medication for pain, low-dose steroid) Related Data Home Medications Medication Instructions Recorded Confirmed amlodipine 5 mg tablet (Norvasc) 5 mg PO DAILY 04/17/23 07/09/24 nitroglycerin 0.4 mg sublingual 0.4 mg sublingual Q5M PRN Pain 04/17/23 07/09/24 tablet (Nitrostat) acetaminophen 500 mg tablet 500 mg PO Q6H PRN Pain 04/23/23 07/09/24 (Tylenol Extra Strength) tramadol 50 mg tablet 50 mg PO BID PRN Pain 04/23/23 07/09/24 acyclovir 800 mg tablet 800 mg PO .5 TIMES DAILY 07/09/24 07/09/24 amoxicillin 500 mg capsule 500 mg PO TID 07/09/24 07/09/24 cefdinir 300 mg capsule 300 mg PO BID 07/09/24 07/09/24 metoprolol tartrate 75 mg tablet 75 mg PO DAILY 07/09/24 07/09/24 prednisone 20 mg tablet 20 mg PO BID 07/09/24 07/09/24 Previous Rx's Medication Instructions Recorded alirocumab 150 mg/mL subcutaneous 150 mg SUBCUT Q14D #2 mL 06/07/24 pen injector (Praluent Pen) rivaroxaban 20 mg tablet (Xarelto) 20 mg PO DAILY #90 tabs 06/07/24 ondansetron HCl 4 mg tablet 4 mg PO Q8H #20 tabs 07/09/24 Allergies Allergy/AdvReac Type Severity Reaction Status Date / Time Imsdeev-ZOP-OeS Reductase Allergy Mild ADR-Muscle Verified 04/01/24 16:11 Inhibitor Pain codeine Allergy Unknown Unknown Verified 04/01/24 16:11 nitrofurantoin Allergy Unknown Unknown Verified 04/01/24 16:11 [From Macrobid] Review of Systems 2 General: Reports: 10 or more systems reviewed and unremarkable except in HPI and below Const: Denies: fever(s), chills or fatigue Eyes: Denies: change in vision ENMT: Denies: throat pain, ear or mastoid pain or nasal discharge Card: Denies: chest pain, palpitations, swelling of feet/ankles or lightheadedness Resp: Denies: dyspnea, productive cough or wheezing GI: Reports: nausea; Denies: abdominal pain, vomiting, diarrhea or constipation : Denies: flank pain, difficulty voiding, dysuria or urinary frequency Musc: Denies: neck pain, back pain or joint pain Skin/Breast: Denies: rash Neuro: Reports: headache(s); Denies: numbness in extremities or weakness in extremities PFSH ED 2 PFSH: Medical History Anticoagulation adequate with anticoagulant therapy A-fib Coronary artery disease Hyperlipemia HTN (hypertension) Pacemaker Surgical History History of radiofrequency ablation (RFA) procedure for cardiac arrhythmia Social History Smoking and tobacco/nicotine status: never used tobacco/nicotine Quit status (tobacco/nicotine): has quit using Year quit tobacco: been 30 plus years Alcohol intake: never Substance/Drug Use: never Physical Exam 2 Const: COMMON NORMALS: no acute distress, patient oriented x3 and no limitations GENERAL APPEARANCE: cooperative, comfortable and well developed ORIENTATION/CONSCIOUSNESS: Yes awake, Yes oriented to person, Yes oriented to place and Yes oriented to time HENMT: COMMON NORMALS: normocephalic, atraumatic and hearing grossly normal bilaterally HEAD & SCALP: normocephalic and atraumatic OTHER: No significant reproducible tenderness to palpation to right temporal region, no overlying skin changes such as rash or lesions. No palpable bulging to the right temporal artery region. Eye: COMMON NORMALS: Equal, round and reactive pupils present, EOMs intact bilaterally, conjunctivae normal and normal visual sanches by confrontation G ENERAL EYE: appearance normal, both eyes and all related structures C ONJUNCTIVA: Yes conjunctivae normal PUPIL: Yes Equal, round and reactive pupils present Neck/C-Spine: COMMON NORMALS: full ROM, supple and no JVD Resp: COMMON NORMALS: normal respiratory effort, No retractions, No use of accessory muscles and clear to auscultation bilaterally AUSCULTATION: clear to auscultation bilaterally Cardio: COMMON NORMALS: no JVD, regular rate, regular rhythm, No clicks present (Cardio), No murmurs present (Cardio) and No rub (Cardio) RATE: r egular rate RHYTHM: regular rhythm Extremity: COMMON NORMALS: normal to inspection, full ROM and capillary refill normal Neuro: COMMON NORMALS: patient oriented x3, CN's II-XII intact bilaterally, moves all extremities, no focal motor deficits and no sensory deficits noted SENSORIUM/ORIENTATION: Yes oriented to person, Yes oriented to place and Yes oriented to time Psych: COMMON NORMALS: mental status grossly normal and Normal thought process present THOUGHT PROCESS: Normal thought process present Skin: COMMON NORMALS: no rashes or lesions noted GENERAL SKIN EXAM: no rashes or lesions noted Course 2 Vital Signs: Vital signs: Vital Signs Temperature 97.6 F 07/09/24 14:20 Pulse Rate 67 07/09/24 15:34 Respiratory Rate 16 07/09/24 14:20 Blood Pressure 157/77 07/09/24 15:34 Pulse Oximetry 97 07/09/24 15:34 Oxygen Delivery Me thod Room Air 07/09/24 15:34 MDM - General Adult Medical Decision Making Patient has been dealing with headache going on a week. Her workup has included evaluation from air support control officer as well as primary care. Thought to be early shingles she was started on medication prophylactically, appears to be acyclovir. She also was started on antibiotics for potential dental infection, and steroids for potential giant cell arteritis. Her pain had persisted and today was uncontrolled by tramadol. On exam neurological function completely intact I had no concerns here and no abnormalities were detected. Vitals have been unremarkable, specifically on arrival and at time of my examination her blood pressure was normal. Blood work unremarkable, CT of the head did not demonstrate any large mass or hemorrhagic stroke. CTA did not show any significant stenosis or occlusion that would explain her pain. With no visual changes to report, and no other concerning symptoms other than nausea I feel that this could be an atypical headache. Less likely this is giant cell arteritis as her ESR was unremarkable, and less likely trigeminal neuralgia due to location of pain, though this could be located to just the ophthalmic branch. She may benefit from seeing neurology, however we discussed following up and she is going to follow-up on Friday with primary care for routine reevaluation. She does feel better here after being given steroid through IV, also will be given dose of muscle relaxer through the IV to see if this helps when she gets home and over the weekend. She is to continue taking her medications, encouraged her to return with visual changes, neurological symptoms, or other concerns she may have. She is comfortable with this plan at this time. Discussed this case with Dr. Nguyen. Lab Data 07/09/24 14:41 07/09/24 14:[address] 07/09/24 14:34 IMPRESSION: No acute intracranial findings. Head/Neck CTA 07/09/24 14:34 IMPRESSION: No large vessel stenosis or occlusion. IMPRESSION: 1. Calcified plaque in the proximal right ICA with mild stenosis. 2. Calcified plaque in the proximal left ICA with mild stenosis. 3. Nodular enlargement right lobe of the thyroid gland. Consider non urgent thyroid ultrasound. REFERENCES: NASCET CRITERIA. The degree of stenosis in the cervical segment of the internal carotid artery is based on NASCET criteria. Normal is no stenosis. Mild is less than 50% stenosis. Moderate is 50-69% stenosis. Severe is 70% to 99% stenosis. Total occlusion is no detectable patent lumen. Laboratory Results WBC 13.42 10^3/uL (3.29-11.43) H 07/09/24 14:41 RBC 4.87 10^6/uL (3.85-5.65) 07/09/24 14:41 Hgb 13.60 g/dL (11.27-16.99) 07/09/24 14:41 Hct 41.5 % (36-47) 07/09/24 14:41 MCV 85.2 fl (85-98) 07/09/24 14:41 MCH 27.9 pg (27-33) 07/09/24 14:41 MCHC 32.8 g/dL (30-55) 07/09/24 14:41 RDW 12.8 % (12.1-15.1) 07/09/24 14:41 Plt Count 289 10^3/cmm (157-399) 07/09/24 14:41 MPV 9.3 fL (7.4-10.4) 07/09/24 14:41 Neut % (Auto) 77.6 % 07/09/24 14:41 Lymph % (Auto) 16.0 % 07/09/24 14:41 [place] % (Auto) 5.7 % 07/09/24 14:41 Eos % (Auto) 0.1 % 07/09/24 14:41 Baso % (Auto) 0.2 % 07/09/24 14:41 Neut # (Auto) 10.41 10^3/uL (1.8-7.7) H 07/09/24 14:41 Lymph # (Auto) 2.2 10^3/uL (0.8-4.8) 07/09/24 14:41 [place] # (Auto) 0.8 10^3/uL (0.2-0.9) 07/09/24 14:41 Eos # (Auto) 0.0 10^3/uL (0.0-0.8) 07/09/24 14:41 Baso # (Auto) 0.0 10^3/uL (0.0-0.1) 07/09/24 14:41 Nucleated RBC % (auto) 0 % 07/09/24 14:41 Nucleated RBCs # 0.0 /100WBC 07/09/24 14:41 ESR 9 mm/hr (0-15) 07/09/24 14:41 Sodium 133 mmol/L (136-145) L 07/09/24 14:41 Potassium 3.8 mmol/L (3.5-5.1) 07/09/24 14:41 Chloride 96 mmol/L (98-107) L 07/09/24 14:41 Carbon Dioxide 23 mmol/L (22-29) 07/09/24 14:41 Anion Gap 17.8 (5-19) 07/09/24 14:41 BUN 19 mg/dL (8-23) 07/09/24 14:41 Creatinine 0.9 mg/dL (0.5-0.9) 07/09/24 14:41 GFR Calculation Not Reportable 07/09/24 14:41 Glucose 130 mg/dL (65-115) H 07/09/24 14:41 Calculated Osmolality 280 mOsm/kg (285-295) L 07/09/24 14:41 Calcium 9.3 mg/dL (8.5-10.5) 07/09/24 14:41 Total Bilirubin 0.4 mg/dL (0.15-1.2) 07/09/24 14:41 AST 16 U/L (0-32) 07/09/24 14:41 ALT 12 U/L (0-33) 07/09/24 14:41 Alkaline Phosphatase 61 U/L (35-105) 07/09/24 14:41 Total Protein 7.9 g/dL (6.6-8.7) 07/09/24 14:41 Albumin 4.5 g/dL (3.5-5.2) 07/09/24 14:41 Globulin 3.4 g/dL (1.3-4.6) 07/09/24 14:41 All radiology interpretation(s) finalized by discharge Discharge Plan Discharge Patient Disposition: Home Clinical Impression: Headache Condition: Stable Prescriptions: New ondansetron HCl 4 mg tablet 4 mg PO Q8H Qty: 20 0RF No Action nitroglycerin [Nitrostat] 0.4 mg tablet, sublingual 0.4 mg sublingual Q5M PRN (Reason: Pain) Rx Instructions: do not exceed 3 doses per episode amlodipine [Norvasc] 5 mg tablet 5 mg PO DAILY acetaminophen [Tylenol Extra Strength] 500 mg tablet 500 mg PO Q6H PRN (Reason: Pain) tramadol 50 mg tablet 50 mg PO BID PRN (Reason: Pain) Praluent Pen 150 mg/mL pen injector 150 mg SUBCUT Q14D Qty: 2 6RF Xarelto 20 mg tablet 20 mg PO DAILY Qty: 90 3RF Rx Instructions: must administer with evening meal amoxicillin 500 mg capsule 500 mg PO TID prednisone 20 mg tablet 20 mg PO BID acyclovir 800 mg tablet 800 mg PO .5 TIMES DAILY cefdinir 300 mg capsule 300 mg PO BID metoprolol tartrate 75 mg tablet 75 mg PO DAILY Rx Instructions: TAKE 1 TABLET DAILY Discharge Orders: Discharge ED (Routine); Ordered 07/09/24 Ordered By: Akira Mast Referrals: Delmer Shaver MD [Primary Care Provider] - Patient Instructions: Acute Headache (ED) Activity Restrictions/Additional Instructions: Zofran for nausea. Drink plenty of fluids. Continue your tramadol at home. Continue prednisone. Please follow-up first thing on Friday with primary care for further evaluation. Please return with any visual changes, severe worsening of pain, neurological symptoms, or other concerning symptoms you have. Coding Level of Care Code ED Shipping Supervisor for Lincoln Cooper
[2024-07-09 14:48] LABS: Basophils % 0.2 %; Eosinophils % 0.1 %; Hematocrit 41.5 % (36-47); Lymphocytes # 2.2 10^3/uL (0.8-4.8); Mean Corpuscular HGB Conc 32.8 g/dL (30-55); Mean Corpuscular Hemoglobin 27.9 pg (27-33); Mean Corpuscular Volume 85.2 fl (85-98); Mean Platelet Volume 9.3 fL (7.4-10.4); Monocytes # 0.8 10^3/uL (0.2-0.9); Monocytes % 5.7 %; Neutrophils # 10.41 10^3/uL (1.8-7.7); Neutrophils % 77.6 %; Nucleated Red Blood Cells % 0 %; Platelet Count 289 10^3/cmm (157-399); Red Blood Count 4.87 10^6/uL (3.85-5.65); Red Cell Distribution Width 12.8 % (12.1-15.1); White Blood Count 13.42 10^3/uL (3.29-11.43)
[2024-07-09] MEDS: dexamethasone 10 mg/mL INJ IVP (14:49)
[2024-07-09 15:07] LABS: Alanine Aminotransferase 12 U/L (0-33); Albumin Level 4.5 g/dL (3.5-5.2); Alkaline Phosphatase 61 U/L (35-105); Anion Gap 17.8 (5-19); Aspartate Amino Transferase 16 U/L (0-32); Blood Urea Nitrogen 19 mg/dL (8-23); Calcium 9.3 mg/dL (8.5-10.5); Carbon Dioxide 23 mmol/L (22-29); Chloride 96 mmol/L (98-107); Creatinine Clr Calc Pharmacy 42.7392; Globulin 3.4 g/dL (1.3-4.6); Glucose 130 mg/dL (65-115); Osmolality Calculated 280 mOsm/kg (285-295); Potassium 3.8 mmol/L (3.5-5.1); Sodium 133 mmol/L (136-145); Total Bilirubin 0.4 mg/dL (0.15-1.2); Total Protein 7.9 g/dL (6.6-8.7)
[2024-07-09] MEDS: iohexol 350 mg/mL 500 mL Btl (per mL) IV (15:10)
[2024-07-09 15:16] LABS: Erythrocyte Sedimentation Rate 9 mm/hr (0-15)
[2024-07-09 15:34] VITALS: BP 157/77; PULSE 67; O2SAT 97
[2024-07-09] MEDS: ketorolac 30 mg/mL INJ IVP (16:11)
[2024-07-09] MEDS: ondansetron 4 MG Tablet PO ×2 (16:11)
[2024-07-09] MEDS: orphenadrine 30 mg/mL Inj 2 mL 60 MG IVP (16:12)
--- NOTE | 2024-07-09 16:15 | PC.NURSE ---
2 4MG ZOFRAN TABLETS GIVEN TO PATIENT TO USE AT HOME PER PHYSICIAN ORDERS.
[2024-07-09 16:20] VITALS: BP 147/84; PULSE 64; O2SAT 97
== END 2024-07-09 16:24 | disposition home or self-care (01) ==
PROVIDERS: Emergency Provider Physician Assistant; PCP Family Medicine
DX: R51.9 Headache, unspecified (principal); Z87.891 Personal history of nicotine dependence; I25.10 Atherosclerotic heart disease of native coronary artery without angina pectoris; E78.5 Hyperlipidemia, unspecified; I10 Essential (primary) hypertension; Z95.0 Presence of cardiac pacemaker
CPT/HCPCS: 36415; 70450; 70496; 70498; 80053; 85025; 85651; 96374; 96375; 99285; J1100; J1885; J2360; Q0162

== ENCOUNTER → 2024-07-14 09:06 | Outpatient (BNVA) | payer MEDICARE, OTHER, SELFPAY | PROVIDERS: PCP Family Medicine; Visit Provider Internal Medicine Cardiovascular Disease | DX: Z45.010 Encounter for checking and testing of cardiac pacemaker pulse generator [battery] (principal) | CPT/HCPCS: 93296 ==

== ENCOUNTER 2024-07-30 08:46 | Outpatient (CLI) | payer MEDICARE, OTHER, SELFPAY ==
[2024-07-30 09:29] LABS: Free T4 Free Thyroxine 1.32 ng/dL (0.82-1.77); Thyroid Stimulating Hormone 0.19 uIU/mL (0.27-4.20)
[2024-07-31 10:50] LABS: T3 Total 119 ng/dL (76-181)
== END 2024-07-30 08:47 | disposition home or self-care (01) ==
LOC: LAB 08:48
PROVIDERS: PCP Family Medicine; Visit Provider Internal Medicine
DX: I48.0 Paroxysmal atrial fibrillation (principal); E04.1 Nontoxic single thyroid nodule; E05.90 Thyrotoxicosis, unspecified without thyrotoxic crisis or storm
CPT/HCPCS: 36415; 84439; 84443; 84480

== ENCOUNTER → 2024-08-06 14:33 | Outpatient (BNVA) | payer MEDICARE, OTHER, SELFPAY | PROVIDERS: PCP Family Medicine; Referring Provider Family Medicine; Visit Provider Specialist | DX: R51.9 Headache, unspecified (principal) | CPT/HCPCS: 99204 ==

== ENCOUNTER → 2024-08-10 10:45 | Outpatient (BNVA) | payer MEDICARE, OTHER, SELFPAY | PROVIDERS: PCP Family Medicine; Visit Provider Nurse Practitioner Family | DX: I25.10 Atherosclerotic heart disease of native coronary artery without angina pectoris (principal); I48.0 Paroxysmal atrial fibrillation | CPT/HCPCS: 93005; 99214 ==

== ENCOUNTER 2024-09-16 10:29 | Outpatient (CLI) | payer MEDICARE, OTHER, SELFPAY ==
[2024-09-16 11:30] LABS: Thyroid Stimulating Hormone 0.97 uIU/mL (0.27-4.20)
[2024-09-16 13:06] LABS: Free T4 Free Thyroxine 0.97 ng/dL (0.82-1.77)
[2024-09-17 11:55] LABS: T3 Total 106 ng/dL (76-181)
== END 2024-09-16 10:30 | disposition home or self-care (01) ==
LOC: LAB 10:31
PROVIDERS: PCP Family Medicine; Visit Provider Internal Medicine
DX: I48.0 Paroxysmal atrial fibrillation (principal); E04.1 Nontoxic single thyroid nodule; E05.90 Thyrotoxicosis, unspecified without thyrotoxic crisis or storm
CPT/HCPCS: 36415; 84439; 84443; 84480

== ENCOUNTER → 2024-09-24 08:53 | Outpatient (BNVA) | payer MEDICARE, OTHER, SELFPAY | PROVIDERS: PCP Family Medicine; Visit Provider Nurse Practitioner Family | DX: L57.8 Other skin changes due to chronic exposure to nonionizing radiation (principal); X32.XXXA Exposure to sunlight, initial encounter; L57.0 Actinic keratosis; L81.4 Other melanin hyperpigmentation; L82.1 Other seborrheic keratosis; B35.1 Tinea unguium; Z08 Encounter for follow-up examination after completed treatment for malignant neoplasm; Z85.820 Personal history of malignant melanoma of skin; R20.9 Unspecified disturbances of skin sensation; R20.8 Other disturbances of skin sensation; L53.8 Other specified erythematous conditions; D48.5 Neoplasm of uncertain behavior of skin | CPT/HCPCS: 11102; 17000; 17110; 99213 ==

== ENCOUNTER → 2024-10-05 08:23 | Outpatient (BNVA) | payer MEDICARE, OTHER, SELFPAY | PROVIDERS: PCP Family Medicine; Visit Provider Internal Medicine | DX: R07.89 Other chest pain (principal); R00.2 Palpitations; R06.02 Shortness of breath; I25.10 Atherosclerotic heart disease of native coronary artery without angina pectoris; E78.5 Hyperlipidemia, unspecified; I10 Essential (primary) hypertension; I48.0 Paroxysmal atrial fibrillation; Z79.01 Long term (current) use of anticoagulants; Z95.0 Presence of cardiac pacemaker; Z87.891 Personal history of nicotine dependence | CPT/HCPCS: 99214 ==

== ENCOUNTER 2024-10-13 07:11 | Outpatient (CLI) | payer MEDICARE, OTHER, SELFPAY ==
--- NOTE | 2024-10-13 | ECG_ITS ---
[facility] Test Date: 2024-10-13 Pat Name: Sunny Soria Department: Room: Gender: Female Energy Conservation Representative: : 1940 Requested By: Myles Quintero Order Number: [id number] Reading MD: ANITHA BURT Interpretive Statements Lung unchanged pre/post procedure; Intraprocedure shortess of breath; Symptoms resoled by discharge NOTE: Please note that this is the electrocardiogram portion of the Lexiscan/Sestamibi stress test. The perfusion scan will be documented separately. DATA: Baseline heart rate was 60 beats per minute. Baseline blood pressure was 154/82 millimeters of mercury. Target heart rate was 136. Maximum heart rate achieved was 80. which was 58 % of the predicted target heart rate. Maximum blood pressure was 158/82 millimeters of mercury. The reason for ending the test was completion of the protocol. The patient did not experience any symptoms. ELECTROCARDIOGRAM: BASELINE: Sinus rhythm. Normal axis. Otherwise, no ST-T changes suggestive of ischemia noted. No arrhythmia noted. EXERCISE: After Lexiscan injection, no ST-T changes suggestive of ischemic noted. No arrhythmia noted. CONCLUSION: Please note due to baseline abnormality of the EKG specificity and sensitivity of the EKG portion of LexiScan MIBI stress test will be low 1. EKG not suggestive of ischemia 2. Lexiscan injection unremarkable. 3. Perfusion scan will be documented separately. Electronically Signed On 11-02-2024 18:09:24 CDT by ANITHA BURT [email or web address]
[2024-10-13 08:00] VITALS: BMI 28.3
--- NOTE | 2024-10-13 08:08 | NMCV_ITS ---
NM kathi perf SPECT r/s* [id number] Sunny Soria Age: 84 Gender: F : 1940 Exam Date: 10/13/2024 08:42 Ordering Phys: Myles Quintero M.D ([email or web address]) Technologist: MK Geller Exam Location: [facility] Indications: CP STRESS TEST [facility] for [facility] IMAGE PROTOCOL Rest/Stress 1 Lexiscan Day Radiopharmaceutical Dose (mCi) Administration Site Administered by Rest: Tc-99m 10.4 IV MK Geller Sestamibi Stress:Tc-99m 32.9 IV Jessica Rojas, SURGICAL PHYSICIAN ASSISTANT Sestamibi Rest: 13-Oct-2024 60 Discovery 630 Stress: 13-Oct-2024 30 Discovery 630 0.4mg Lexiscan. Images obtained in supine and prone position. SPECT RESULTS Technical Quality: Good Raw Data Analysis: Normal Image Corrections: Summed Stress Score: 7 Summed Rest Score: 18 Summed Difference Score: 0 PERFUSION FINDINGS SPECT images demonstrate homogeneous tracer distribution throughout the myocardium. FUNCTIONAL RESULTS (calculated via Gated SPECT) Stress Image LV EF (%): 78 Stress EDV (mL):49 TID: 1.25 Stress ESV (mL):11 FUNCTIONAL FINDINGS: There is normal left ventricular systolic function. IMPRESSIONS Myocardial perfusion imaging is normal. Sánchez Quinn MD (Electronically Signed) Final Date: 14 October 2024 12:31 S
[2024-10-13] MEDS: regadenoson 0.4 Mg/5 ml Syringe IVP (09:15)
[2024-10-13 09:42] VITALS: BP 158/62; PULSE 77
== END 2024-10-13 07:12 | disposition home or self-care (01) ==
LOC: CDL 07:12
PROVIDERS: PCP Family Medicine; Visit Provider Internal Medicine
DX: R07.9 Chest pain, unspecified (principal)
CPT/HCPCS: 36415; 78452; 93017; 96374; A9500; J2785

== ENCOUNTER 2024-11-09 08:11 | Outpatient (CLI) | payer MEDICARE, OTHER, SELFPAY ==
--- NOTE | 2024-11-09 08:30 | USCV_ITS ---
Sunny Soria Age: 84 Gender: F : 1940 Exam Date: 11/09/2024 08:44 Ordering Phys: Myles Quintero M.D ([email or web address]) Technologist: Exam Location: [facility] Indication: cp sob BP: 110 / 70 HR: 58 Rhythm: Sinus Technical Quality: Adequate MEASUREMENTS (Male / Female) Normal Values 2D ECHO LV Diastolic Diameter PLAX 3.5 cm 4.2 - 5.9 / 3.9 - 5.3 cm IVS Diastolic Thickness 1.3 cm 0.6 - 1.0 / 0.6 - 0.9 cm IVS Systolic Thickness 1.5 cm LVPW Diastolic Thickness 1.2 cm 0.6 - 1.0 / 0.6 - 0.9 cm LVPW Systolic Thickness 1.5 cm LVOT Diameter 1.9 cm LV Ejection Fraction 2D Teich 66.2 % LV Ejection Fraction MOD 4C 68.4 % LV Ejection Fraction MOD 2C 70.1 % LV Ejection Fraction 2C AL 70.6 % LA Diameter 4.2 cm RA Systolic Volume 4C AL 32.7 ml RA Systolic Volume 4C MOD 31.3 ml Aorta at Sinotubular Diameter 2.3 cm M-MODE LA Ao Ratio MM 1.3 AV Cusp Separation MM 1.6 cm DOPPLER AV Peak Velocity 149.0 cm/s MV Area PHT 2.6 cm squared Mitral E to A Ratio 1.1 TV Peak Velocity 259.0 cm/s TR Peak Velocity 260.0 cm/s TR Peak Gradient 27.0 mmHg TV Peak E Velocity 99.0 cm/s PV Peak Velocity 91.0 cm/s FINDINGS Left Ventricle Left ventricle normal size. LV systolic function is normal with EF of 55-60%. No regional wall motion abnormalities are seen. Right Ventricle Normal in size and function Right Atrium Normal in size Left Atrium Normal in size Mitral Valve Structurally normal mitral valve. Mild mitral regurgitation Aortic Valve Aortic valve is thickened. No significant stenosis or regurgitation Tricuspid Valve Mild tricuspid regurgitation. RVSP is normal. Pulmonic Valve Trace pulmonic regurgitation. Pericardium Normal. Aorta Normal in size IVC Not well-visualized CONCLUSIONS LV systolic function is normal with EF of 55-60% Mild mitral regurgitation Mild tricuspid regurgitation Trace pulmonic regurgitation Myles Quintero MD (Electronically Signed) Final Date: 14 Nov 2024 14:33 S
== END 2024-11-09 08:12 | disposition home or self-care (01) ==
PROVIDERS: PCP Family Medicine; Visit Provider Internal Medicine
DX: R06.02 Shortness of breath (principal); I34.0 Nonrheumatic mitral (valve) insufficiency; I35.8 Other nonrheumatic aortic valve disorders; I07.1 Rheumatic tricuspid insufficiency
CPT/HCPCS: 93306

== ENCOUNTER 2024-11-30 08:44 | Outpatient (CLI) | payer MEDICARE, OTHER, SELFPAY ==
[2024-11-30 10:36] LABS: Thyroid Stimulating Hormone 1.88 uIU/mL (0.27-4.20)
[2024-11-30 11:39] LABS: Free T4 Free Thyroxine 0.92 ng/dL (0.82-1.77)
[2024-12-01 07:50] LABS: T3 Total 117 ng/dL (76-181)
== END 2024-11-30 08:45 | disposition home or self-care (01) ==
LOC: LAB 08:49
PROVIDERS: PCP Family Medicine; Visit Provider Internal Medicine
DX: I48.0 Paroxysmal atrial fibrillation (principal); E04.1 Nontoxic single thyroid nodule; E05.90 Thyrotoxicosis, unspecified without thyrotoxic crisis or storm
CPT/HCPCS: 36415; 84439; 84443; 84480

== ENCOUNTER → 2024-12-06 10:31 | Outpatient (BNVA) | payer MEDICARE, OTHER, SELFPAY | PROVIDERS: PCP Family Medicine; Visit Provider Internal Medicine | DX: E04.1 Nontoxic single thyroid nodule (principal); E05.90 Thyrotoxicosis, unspecified without thyrotoxic crisis or storm; I48.0 Paroxysmal atrial fibrillation | CPT/HCPCS: 99214 ==

== ENCOUNTER → 2025-01-13 09:28 | Outpatient (BNVA) | payer MEDICARE, OTHER, SELFPAY | PROVIDERS: PCP Family Medicine; Visit Provider Internal Medicine | DX: Z45.018 Encounter for adjustment and management of other part of cardiac pacemaker (principal) | CPT/HCPCS: 93296 ==

== ENCOUNTER 2025-02-08 10:33 | Outpatient (CLI) | payer MEDICARE, OTHER, SELFPAY ==
[2025-02-08 12:39] LABS: Free T4 Free Thyroxine 1.01 ng/dL (0.82-1.77); Thyroid Stimulating Hormone 1.29 uIU/mL (0.27-4.20)
== END 2025-02-08 10:34 | disposition home or self-care (01) ==
LOC: LAB 10:36
PROVIDERS: PCP Family Medicine; Visit Provider Internal Medicine
DX: E05.90 Thyrotoxicosis, unspecified without thyrotoxic crisis or storm (principal); I48.0 Paroxysmal atrial fibrillation; R63.4 Abnormal weight loss
CPT/HCPCS: 36415; 84439; 84443; 84480

== ENCOUNTER → 2025-02-14 10:31 | Outpatient (BNVA) | payer MEDICARE, OTHER, SELFPAY | PROVIDERS: PCP Family Medicine; Visit Provider Internal Medicine | DX: E04.1 Nontoxic single thyroid nodule (principal); E05.90 Thyrotoxicosis, unspecified without thyrotoxic crisis or storm; I48.0 Paroxysmal atrial fibrillation; R63.4 Abnormal weight loss | CPT/HCPCS: 99214 ==

== ENCOUNTER 2025-03-01 08:21 | Outpatient (CLI) | payer MEDICARE, OTHER, SELFPAY ==
[2025-03-01 10:07] LABS: Free T4 Free Thyroxine 1.12 ng/dL (0.82-1.77); Thyroid Stimulating Hormone 0.79 uIU/mL (0.27-4.20)
== END 2025-03-01 08:22 | disposition home or self-care (01) ==
PROVIDERS: PCP Family Medicine; Visit Provider Internal Medicine
DX: I48.0 Paroxysmal atrial fibrillation (principal); E05.90 Thyrotoxicosis, unspecified without thyrotoxic crisis or storm
CPT/HCPCS: 36415; 84439; 84443; 84480

== ENCOUNTER 2025-03-02 06:58 | Outpatient (CLI) | payer MEDICARE, OTHER, SELFPAY ==
[2025-03-02 07:28] VITALS: PULSE 63; RESP 18; O2SAT 97
== END 2025-03-02 06:59 | disposition home or self-care (01) ==
LOC: RT 07:02
PROVIDERS: PCP Family Medicine; Visit Provider Family Medicine
DX: R06.02 Shortness of breath (principal)
CPT/HCPCS: J7613

== ENCOUNTER 2025-03-04 13:23 | Observation (INO) | payer MEDICARE, OTHER, SELFPAY ==
--- OUTSIDE RECORDS SUMMARY | 2011-09-30 08:45 | XMS_ITS | Continuity of Care Document ---
Author Organization [facility] Address [address] [place] [address] Phone Care Team Providers Care Insulation Inspector Name Role Phone Fernie Farfan CRNA Unavailable Unavailable Procedures Procedure Date ANESTH, LENS SURGERY Advance Directives Directive Yes / No Effective Date File Name No Information Encounters Encounter Description Practice Location Reason(s) For Visit Diagnoses Date Provider [facility], [address] [place] [address] Erika Danyelkirstin, [place], [place], [id number], [place] tel:[phone] [facility] Cortical senile cataract 2011 Naheed Enciso. [address] [address], [place], [place], [id number], [place]. tel:[phone] [facility], [address] [place] [address] Erika Raquel, [place], [place], [id number], [place] tel:[phone] [facility] Cortical senile cataract 2011 [facility] [address], [place], [place], [id number], [place]. tel:[phone] [facility], [address] [place] [address] Erika Raquel, [place], [place], [id number], [place] tel:[phone] [facility] Cortical senile cataract 2011 Ciera Mercer. [address], [place], [place], [id number], [place]. tel:[phone] [facility], [address] [place] [address] Erika García, [place], [place], [id number], [place] tel:[phone] [facility] Cortical senile cataract 2011 Ciera Mercer. [address], [place], [place], [id number], [place]. tel:[phone] [facility], [address], [place], [place], [id number], [place] tel:[phone] [facility] Cortical senile cataract 2011 Willian Adler. [address], [place], [place], [id number], [place]. tel:[phone] [facility], [address], [place], [place], [id number], [place] tel:[phone] [facility] Cortical senile cataract 2011 [facility]. [address], [place], [place], [id number], [place]. tel:[phone] [facility], [address], [place], [place], [id number], [place] tel:[phone] [facility] Cortical senile cataract 2011 Willian Adler. [address], [place], [place], [id number], [place]. tel:[phone] [facility], [address], [place], [place], [id number], [place] tel:[phone] [facility] Cortical senile cataract 2011 No Information [facility], [address], [place], [place], [id number], [place] tel:[phone] [facility] Cortical senile cataract 2011 Poonam Diallo. [address], [place], [place], [id number], [place]. tel:[phone] Family History Family Member Type Diagnosis Age At Onset No Information Payers Payer name Insurance type Covered libertarian ID Authoriza tiedu(s) [place]ICARE [place] [id number] [facility] [id number] Social History Type Description Quantity Date Captured Comments Sex Female Smoking Status No Information Chief Complaint And Reason For Visit No Information History Of Present Illness Encounter Date Complaint History Of Prese nt Illness No Information Instructions Date Instruction Additional Infor mation No Information Assessments Type Assessment Date No Information
[2025-03-04 13:23] VITALS: BP 180/72; PULSE 70; RESP 16; TEMP 36.6; O2SAT 96; BMI 27.4
--- OUTSIDE RECORDS SUMMARY | 2025-03-04 13:29 | XMS_ITS ---
Laboratory report Created on: February 26, 2025 YA DAWSON : 1940 Sex: Female Author Name GABRIEL ARDON Unknown PROBLEMS Problems List Code Description I10 E78.5 Z13.1 RESULTS Laboratory Orders Date Order Code Test 2025-02-15 203107 HEMOGLOBIN A1C 2025-02-15 672081 LIPID PANEL W/ C HOL/HDL RATIO 2025-02-15 [id number] CMP14+CBC/D/PLT+ TSH Laboratory Results Date LOINC Test Value Unit Reference Range Interpre tation 2025-02-15 4548-4 HEMOGLOBIN A1C 5.8 % 4.8-5.6 H 2025-02-15 2093-3 CHOLESTEROL, TOTAL 212 MG/DL 100-199 H 2025-02-15 2571-8 TRIGLYCERIDES 165 MG/DL 0-149 H 2025-02-15 2085-9 HDL CHOLESTEROL 44 MG/DL >39 2025-02-15 72342-9 VLDL CHOLESTEROL NIYAH 30 MG/DL 5-40 2025-02-15 97165-5 LDL CHOL CALC ([facility]) 138 MG/DL 0-99 H 2025-02-15 9830-1 T CHOL/HDL RATIO 4.8 RATIO 0.0-4.4 H 2025-02-15 2345-7 GLUCOSE 101 MG/DL 70-99 H 2025-02-15 3094-0 BUN 15 MG/DL 8-27 2025-02-15 2160-0 CREATININE .86 MG/DL 0.57-1.00 2025-02-15 02413-5 EGFR 67 ML/MIN/1.73 >59 2025-02-15 3097-3 BUN/CREATININE RATIO 17 12-28 2025-02-15 2951-2 SODIUM 138 MMOL/L 331-806 6626-08-19 2823-3 POTASSIUM 4.4 MMOL/L 3.5-5.2 2025-02-15 2075-0 CHLORIDE 101 MMOL/L 96-106 2025-02-15 2028-9 CARBON DIOXIDE, TOTAL 22 MMOL/L 20-29 2025-02-15 40117-7 CALCIUM 8.9 MG/DL 8.7-10.3 2025-02-15 2885-2 PROTEIN, TOTAL 6.8 G/DL 6.0-8.5 2025-02-15 1751-7 ALBUMIN 4.2 G/DL 3.7-4.7 2025-02-15 91179-1 GLOBULIN, TOTAL 2.6 G/DL 1.5-4.5 2025-02-15 1975-2 BILIRUBIN, TOTAL .5 MG/DL 0.0-1.2 2025-02-15 6768-6 ALKALINE PHOSPHATASE 144 IU/L 44-121 H 2025-02-15 1920-8 AST (SGOT) 85 IU/L 0-40 H 2025-02-15 1742-6 ALT (SGPT) 121 IU/L 0-32 H 2025-02-15 92169-8 TSH 1.25 UIU/ML 0.450-4.500 2025-02-15 6690-2 WBC 6.7 X10E3/UL 3.4-10.8 2025-02-15 789-8 RBC 4.39 X10E6/UL 3.77-5.28 2025-02-15 718-7 HEMOGLOBIN 12.6 G/DL 11.1-15.9 2025-02-15 4544-3 HEMATOCRIT 38.6 % 34.0-46.6 2025-02-15 787-2 MCV 88 FL 79-97 2025-02-15 785-6 MCH 28.7 PG 26.6-33.0 2025-02-15 786-4 MCHC 32.6 G/DL 31.5-35.7 2025-02-15 788-0 RDW 13.4 % 11.7-15.4 2025-02-15 777-3 PLATELETS 253 X10E3/UL 895-233 0877-08-19 770-8 NEUTROPHILS 63 % 2025-02-15 736-9 LYMPHS 27 % 2025-02-15 5905-5 MONOCYTES 7 % 2025-02-15 713-8 EOS 2 % 2025-02-15 706-2 BASOS 1 % 2025-02-15 751-8 NEUTROPHILS (ABSOLUTE) 4.2 X10E3/UL 1.4-7.0 2025-02-15 731-0 LYMPHS (ABSOLUTE) 1.8 X10E3/UL 0.7-3.1 2025-02-15 742-7 MONOCYTES(ABSOLUTE) .5 X10E3/UL 0.1-0.9 2025-02-15 711-2 EOS (ABSOLUTE) .1 X10E3/UL 0.0-0.4 2025-02-15 704-7 BASO (ABSOLUTE) .1 X10E3/UL 0.0-0.2 2025-02-15 28916-4 IMMATURE GRANULOCYTES 0 % 2025-02-15 87625-1 IMMATURE GRANS (ABS) 0 X10E3/UL 0.0-0.1
--- NOTE | 2025-03-04 13:44 | ECG_ITS ---
[facility] Test Date: 2025-03-04 Pat Name: Sunny Soria Department: Room: Gender: Female Pharmacists: : 1940 Requested By: Cecily Zee Order Number: [id number] Roman MD: Maurisio Bess M.D. Measurements Intervals Leon Rate: 67 P: -1 [place]: 154 QRS: -45 QRSD: 106 T: 29 QT: 386 QTc: 409 Interpretive Statements SINUS RHYTHM PATTERN CONSISTENT WITH PULMONARY DISEASE INCOMPLETE RIGHT BUNDLE BRANCH BLOCK [90+ ms QRS DURATION, TERMINAL R IN V1/V2, 40+ ms S IN I/aVL/V4/V5/V6] LEFT ANTERIOR FASCICULAR BLOCK [QRS AXIS <= -45, QR IN I, RS IN II] MODERATE VOLTAGE CRITERIA FOR LVH, CONSIDER NORMAL VARIANT [MEETS CRITERIA IN ONE OF: R(aVL), S(V1), R(V5), R(V5/V6)+S(V1)] Compared to ECG 08/10/2024 10:53:41 Incomplete right bundle-branch block now present.Left anterior fascicular block now present.Atrial-paced complex(es) or rhythm no longer present Atrial abnormality no longer present. Right ventricular hypertrophy no longer present .Myocardial infarct finding no longer present Electronically Signed On 03-04-2025 20:18:59 CDT by Maurisio Bess M.D. [email or web address]
--- NOTE | 2025-03-04 13:44 | XR_ITS ---
WS: [id number] Portable AP upright chest, 03/04/2025 Clinical Data: chest pain Comparison: None. Findings: No nodules, masses or effusions are seen. The heart is normal. The pulmonary vascularity is not increased. No pneumonia or pneumothorax is seen. The aortic arch and descending thoracic aorta show calcification and tortuosity. There is a cardiac pacemaker with the generator overlying the left lateral chest. There are monitor leads on the chest wall. XR/XR chest 1V portable [id number] Impression: Atherosclerosis and cardiac pacemaker.
--- NOTE | 2025-03-04 13:58 | W.ED.CHESTPA ---
HPI - Chest Pain General: Chief Complaint: Chest Pain Stated Complaint: CP N/V SOB Time Seen by Provider: 03/04/25 13:53 History of Present Illness: 84-year-old female with a history of coronary artery disease status post stents and angioplasties, atrial fibrillation with chronic anticoagulation on Xarelto, hyperlipidemia and hypertension and pacemaker placement who presents emergency room with chest pain. Said she had an episode couple of days ago that was less and it resolved. She had a very severe episode today. She took a nitro and it resolved about 15 to 20 minutes later. She is currently chest pain-free. She says this feels a lot like when she has had heart attacks in the past. Related Data Home Medications ?Medication ?Instructions ?Recorded ?Confirmed nitroglycerin 0.4 mg sublingual 0.4 mg sublingual Q5M PRN Pain 04/17/23 02/11/25 tablet (Nitrostat) acetaminophen 500 mg tablet 500 mg PO Q6H PRN Pain 04/23/23 02/11/25 (Tylenol Extra Strength) tramadol 50 mg tablet 50 mg PO BID PRN Pain 04/23/23 02/11/25 Previous Rx's ?Medication ?Instructions ?Recorded rivaroxaban 20 mg tablet (Xarelto) 20 mg PO DAILY #90 tabs 06/07/24 ondansetron HCl 4 mg tablet 4 mg PO Q8H #20 tabs 07/09/24 diltiazem HCl 60 mg See Rx Instructions .Route 10/05/24 capsule,extended release 12 hr .COMPLEX #180 caps metoprolol succinate 100 mg 100 mg PO DAILY #90 tabs 10/05/24 tablet,extended release 24 hr methimazole 5 mg tablet 5 mg PO DAILY #90 tabs 02/08/25 alirocumab 150 mg/mL subcutaneous 150 mg SUBCUT Q14D #2 mL 02/14/25 pen injector (Praluent Pen) Allergies Allergy/AdvReac Type Severity Reaction Status Date / Time Smxwfmv-QMG-QqM Reductase Allergy Mild ADR-Muscle Verified 12/03/24 13:24 Inhibitor Pain codeine Allergy Unknown Unknown Verified 12/03/24 13:24 nitrofurantoin (From Allergy Unknown Unknown Verified 12/03/24 13:24 Macrobid) gabapentin Allergy Double Verified 12/03/24 13:24 Vision Review of Systems Narrative: Constitutional symptoms: Negative except as documented in HPI. Skin symptoms: Negative except as documented in HPI. Eye symptoms: Negative except as documented in HPI. ENMT symptoms: Negative except as documented in HPI. Respiratory symptoms: Negative except as documented in HPI. Cardiovascular symptoms: Negative except as documented in HPI. Gastrointestinal symptoms: Negative except as documented in HPI. Genitourinary symptoms: Negative except as documented in HPI. Musculoskeletal symptoms: Negative except as documented in HPI. Neurologic symptoms: Negative except as documented in HPI. Psychiatric symptoms: Negative except as documented in HPI. Endocrine symptoms: Negative except as documented in HPI. PFSH ED PFSH: Medical History (Updated 03/04/25 @ 15:12 by Lucia Song MD) Anticoagulation adequate with anticoagulant therapy A-fib Coronary artery disease Hyperlipemia HTN (hypertension) Pacemaker Surgical History History of radiofrequency ablation (RFA) procedure for cardiac arrhythmia Social History Smoking and tobacco/nicotine status: former use of tobacco/nicotine Quit status (tobacco/nicotine): has quit using Year quit tobacco: been 30 plus years Alcohol intake: never Substance/Drug Use: never Physical Exam Narrative: EXAM NARRATIVE: General: Alert, no acute distress. Skin: Warm, dry. Head: Normocephalic, atraumatic. Neck: Supple, trachea midline. Eye: Extraocular movements are intact. Ears, nose, mouth and throat: mucosa moist. Cardiovascular: Regular, Normal peripheral perfusion. Respiratory: Lungs are clear to auscultation, respirations are non-labored, breath sounds are equal, Symmetrical chest wall expansion. Gastrointestinal: Soft, Nontender, Non distended Musculoskeletal: Normal ROM, no deformity. Neurological: Alert and oriented, No focal neurological deficit observed. Psychiatric: Cooperative, appropriate mood & affect. Course Vital Signs: Vital signs: Vital Signs Temperature 97.8 F 03/04/25 13:23 Pulse Rate 67 03/04/25 15:08 Respiratory Rate 16 03/04/25 13:23 Blood Pressure 150/68 03/04/25 15:08 Pulse Oximetry 99 03/04/25 15:08 Oxygen Delivery Me thod Room Air 03/04/25 15:08 MDM - Chest Pain Medical Decision Making Differential diagnosis for patient with chest pain includes but is not limited to and based on the above HPI, review of systems and physical exam: Pneumonia. unstable angina. angina. Acute coronary syndrome / [place]. Pulmonary embolism. Costochondritis / musculoskeletal. Pleurisy. Pericarditis. Esophageal spasm. Pancreatis. Cholecystitis. Orders placed to evaluate differential diagnosis based on the above differential, HPI and physical exam EKG: Time 1326. Rate 73 normal sinus rhythm, nonspecific ST changes, no ectopy, partial right bundle, left anterior fascicular block., This was reviewed and interpreted by myself the ER physician at 1330. Chest x-ray: Cardiomegaly. Pacemaker present. No acute process. No infiltrate. No pneumothorax. This was reviewed and interpreted by myself the emergency room physician. I also reviewed the radiology report. Lab Review: Laboratory results were reviewed and interpreted by myself the emergency room physician. No leukocytosis. No anemia. No renal failure. Initial troponin is negative I reviewed the patient's medical record. 84-year-old female with a history of coronary artery disease status post stents and angioplasties, atrial fibrillation with chronic anticoagulation on Xarelto, hyperlipidemia and hypertension and pacemaker placement. Most recent clinic visit was in October. She was having some chest discomfort then so Lexiscan and echo were done. Both of these were fairly unremarkable. HEART Pathway for Early Discharge in Acute Chest Pain from [facility] Education on 03/04/2025 All calculations should be rechecked by clinician prior to use RESULT SUMMARY: 7 points HEART Pathway Score High risk 12-65% 30-day MACE Admit to hospital or observation. Further testing indicated. INPUTS: History ?> 2 = Highly suspicious EKG ?> 1 = Non-specific repolarization disturbance Age ?> 2 = >=5 Risk factors ?> 2 = >= risk factors or history of atherosclerotic disease Initial troponin ?> 0 = <=ormal limit Reexamination: Patient remained stable. No increased work of breathing. No altered mental status. No focal motor deficits. Consultation: I spoke with Dr. Quintero who is the patient's buggy operator who will see the patient in consultation in the morning. No immediate intervention indicated. Consultation: I spoke with Dr. Garcia who is on-call for the hospitalist service who agrees to admission. Assessment and plan: Unstable angina Coronary artery disease ?P.o. aspirin and heparin drip were started. ?Patient has remained chest pain-free while she is been here in the emergency room. -I discussed the patient with the hospitalist on-call who is admitting the patient. - Discussed findings and plan with patient. Answered any questions. - All laboratory values were reviewed and interpreted personally by myself, the ER physician - All imaging was reviewed and interpreted personally by myself, the ER physician. - Evaluation and treatment of this problem were appropriate in the emergency setting Lab Data 03/04/25 14:20 03/04/25 14:20 Radiology Impressions Chest X-Ray 03/04/25 13:44 Impression: Atherosclerosis and cardiac pacemaker. Laboratory Results WBC 8.03 10^3/uL (3.29-11.43) 03/04/25 14:20 RBC 4.06 10^6/uL (3.85-5.65) 03/04/25 14:20 Hgb 11.60 g/dL (11.27-16.99) 03/04/25 14:20 Hct 35.3 % (36-47) L 03/04/25 14:20 MCV 86.9 fl (85-98) 03/04/25 14:20 MCH 28.6 pg (27-33) 03/04/25 14:20 MCHC 32.9 g/dL (30-55) 03/04/25 14:20 RDW 13.2 % (12.1-15.1) 03/04/25 14:20 Plt Count 207 10^3/cmm (157-399) 03/04/25 14:20 MPV 9.4 fL (7.4-10.4) 03/04/25 14:20 Neut % (Auto) 73.7 % 03/04/25 14:20 Lymph % (Auto) 16.9 % 03/04/25 14:20 Ponce % (Auto) 6.7 % 03/04/25 14:20 Eos % (Auto) 1.7 % 03/04/25 14:20 Baso % (Auto) 0.6 % 03/04/25 14:20 Neut # (Auto) 5.91 10^3/uL (1.8-7.7) 03/04/25 14:20 Lymph # (Auto) 1.4 10^3/uL (0.8-4.8) 03/04/25 14:20 Ponce # (Auto) 0.5 10^3/uL (0.2-0.9) 03/04/25 14:20 Eos # (Auto) 0.1 10^3/uL (0.0-0.8) 03/04/25 14:20 Baso # (Auto) 0.1 10^3/uL (0.0-0.1) 03/04/25 14:20 Nucleated RBC % (auto) 0 % 03/04/25 14:20 Nucleated RBCs # 0.0 /100WBC 03/04/25 14:20 Sodium 139 mmol/L (136-145) 03/04/25 14:20 Potassium 4.4 mmol/L (3.5-5.1) 03/04/25 14:20 Chloride 104 mmol/L (98-107) 03/04/25 14:20 Carbon Dioxide 23 mmol/L (22-29) 03/04/25 14:20 Anion Gap 16.4 (5-19) 03/04/25 14:20 BUN 17 mg/dL (8-23) 03/04/25 14:20 Creatinine 0.8 mg/dL (0.5-0.9) 03/04/25 14:20 GFR Calculation Not Reportable 03/04/25 14:20 Glucose 130 mg/dL (65-115) H 03/04/25 14:20 Calculated Osmolality 291 mOsm/kg (285-295) 03/04/25 14:20 Calcium 8.7 mg/dL (8.5-10.5) 03/04/25 14:20 Total Bilirubin 0.6 mg/dL (0.15-1.2) 03/04/25 14:20 AST 217 U/L (0-32) H 03/04/25 14:20 ALT 178 U/L (0-33) H 03/04/25 14:20 Alkaline Phosphatase 266 U/L (35-105) H 03/04/25 14:20 Troponin T Baseline < 6 ng/L (0-10) 03/04/25 14:20 Total Protein 6.8 g/dL (6.6-8.7) 03/04/25 14:20 Albumin 3.7 g/dL (3.5-5.2) 03/04/25 14:20 Globulin 3.1 g/dL (1.3-4.6) 03/04/25 14:20 All radiology interpretation(s) finalized by discharge Clincial Decision Support The following clinical decision support tools were used to aid in care of the patient HEART Score -> History: Highly Suspicious, EKG: Non-specific Changes, Age: 65 or more yrs, Risk Factors: >/=3 Risk Factors, Troponin: Baseline Trop <16 ng/L. Resulting HEART Score: 7. Discharge Plan Discharge Patient Disposition: Placed in Observation Clinical Impression: Unstable angina, Coronary artery disease Coding Level of Care Code ED Teaching Artist for Lincoln Cooper
[2025-03-04 14:24] LABS: Hematocrit 35.3 % (36-47); Hemoglobin 11.60 g/dL (11.27-16.99); Mean Corpuscular HGB Conc 32.9 g/dL (30-55); Mean Corpuscular Hemoglobin 28.6 pg (27-33); Mean Corpuscular Volume 86.9 fl (85-98); Nucleated Red Blood Cells % 0 %; Platelet Count 207 10^3/cmm (157-399); Red Blood Count 4.06 10^6/uL (3.85-5.65); White Blood Count 8.03 10^3/uL (3.29-11.43)
[2025-03-04 14:41] LABS: Troponin(5th) Baseline < 6 ng/L (0-10)
[2025-03-04 14:43] LABS: Alanine Aminotransferase 178 U/L (0-33); Albumin Level 3.7 g/dL (3.5-5.2); Alkaline Phosphatase 266 U/L (35-105); Anion Gap 16.4 (5-19); Aspartate Amino Transferase 217 U/L (0-32); Blood Urea Nitrogen 17 mg/dL (8-23); Calcium 8.7 mg/dL (8.5-10.5); Carbon Dioxide 23 mmol/L (22-29); Chloride 104 mmol/L (98-107); Creatinine Clr Calc Pharmacy 49.2220; Globulin 3.1 g/dL (1.3-4.6); Glucose 130 mg/dL (65-115); Osmolality Calculated 291 mOsm/kg (285-295); Potassium 4.4 mmol/L (3.5-5.1); Sodium 139 mmol/L (136-145); Total Protein 6.8 g/dL (6.6-8.7)
[2025-03-04 15:08] VITALS: BP 150/68; PULSE 67; O2SAT 99
--- NOTE | 2025-03-04 15:44 | ECG_ITS ---
[employer] Test Date: 2025-03-04 Pat Name: Sunny Soria Department: Room: Gender: Female Nurse Outreach Case Manager: : 1940 Requested By: Cecily Zee Order Number: [id number] Abel MD: Maurisio Bess M.D. Measurements Intervals [place] Rate: 73 P: 58 VT: 181 QRS: -52 QRSD: 105 T: 59 QT: 373 QTc: 412 Interpretive Statements SINUS RHYTHM INCOMPLETE RIGHT BUNDLE BRANCH BLOCK [90+ ms QRS DURATION, TERMINAL R IN V1/V2, 40+ ms S IN I/aVL/V4/V5/V6] LEFT ANTERIOR FASCICULAR BLOCK [QRS AXIS <= -45, QR IN I, RS IN II] MINIMAL VOLTAGE CRITERIA FOR LVH, CONSIDER NORMAL VARIANT [MEETS CRITERIA IN ONE OF: R(aVL), S(V1), R(V5), R(V5/V6)+S(V1)] POSSIBLE ANTERIOR MYOCARDIAL INFARCTION , OF INDETERMINATE AGE [30 ms Q WAVE IN V3/V4, OR R < 0.2 mV IN V4]. Compared to ECG 08/10/2024 10:53:41 Incomplete right bundle-branch block now present Left anterior fascicular block now present.Atrial-paced complex(es) or rhythm no longer present. Atrial abnormality no longer present.Right ventricular hypertrophy no longer present.Myocardial infarct finding still present Electronically Signed On 03-04-2025 20:30:29 CDT by Maurisio Bess M.D. [email or web address]
--- NOTE | 2025-03-04 15:47 | P.CONIM_ITS ---
<Statement entered by Myles Quintero M.D - 03/10/25 11:48> Patient was cared for in conjunction with an advanced practice practitioner.? I reviewed the chart and all pertinent data including imaging, telemetry, and laboratory results.? I discussed the patient in detail with the advanced practice practitioner.? Please see their note for complete consult note, testing results and agreed upon plan of care for the patient. Providers/Reason For Consult 2 Consulting Physician/Specialty*: Dr Quintero, interventional cardiology Reason for Consult*: chest pain Requesting Physician: Dr Song Primary Care Provider: Delmer Shaver MD History of Present Illness History of Present Illness Sunny Soria is a 84 year old female with past medical history of CAD (last coronary angiogram in 2022 showing moderate mid LAD and RCA stenosis nonischemic by iFR), atrial fibrillation anticoagulated with Xarelto, hyperlipidemia, hypertension, pacemaker, subclinical hyperthyroidism (was on methimazole but stopped last month by Dr Hawkins due to palpitations), seeing ENT for thyroid nodule. She presented to the emergency room today due to chest pain located in the substernal/epigastric region, described as tightness with associated symptoms of shortness of breath (worse than usual), nausea and diaphoresis sometimes waking her from sleep. She has had this set of symptoms intermittently for the last few months but has worsened in the last 2 days. She is short of breath anytime she exerts. Palpitations are still present but short lived and asymptomatic. She has also noticed some unrelated sharp epigastric pain that felt like a gallbladder attack , however she has had cholecystectomy. Baseline troponin <6. Other labs unremarkable. EKG: sinus rhythm with incomplete RBBB. No ischemic EKG changes. Echocardiogram 11/09/2024: LVEF 55 to 60%, mild mitral regurgitation, mild tricuspid regurgitation. Lexiscan stress test 10/13/2024 negative for ischemia. She was started on isosorbide mononitrate by her PCP Dr. Shaver, she discontinued it after 1 week due to headache. Most recent pacemaker check 01/08/2025: 11 years battery life, normal functioning of the pacemaker, AAIR to DDDR mode, lower rate 60 bpm. She is atrial paced 77%, ventricular paced less than 0.1%. She has infrequent episodes of atrial fibrillation, good ventricular rate control. No arrhythmias from October 10- January 08. Review of Systems 2 Const: Denies: fever(s), chills, change in weight, fatigue or diaphoresis Eyes: Denies: change in vision ENMT: Denies: epistaxis Card: Reports: chest pain, palpitations and dyspnea on exertion; Denies: irregular heart rhythm, edema, syncope, pre-syncope, orthopnea or leg pain with exertion Resp: Denies: dyspnea, productive cough or wheezing GI: Denies: nausea, vomiting, hematemesis, hematochezia or melena : Denies: hematuria Musc: Denies: extremity swelling Rickie/Lymph: Denies: easy bruising or easy bleeding Medications/Allergies Home Medications ?Medication ?Instructions ?Recorded ?Confirmed ?Last Taken ?Type nitroglycerin 0.4 mg sublingual 0.4 mg sublingual Q5M PRN Pain 04/17/23 02/11/25 Unknown History tablet (Nitrostat) acetaminophen 500 mg tablet 500 mg PO Q6H PRN Pain 02/11/25 11/16/23 History (Tylenol Extra Strength) tramadol 50 mg tablet 50 mg PO BID PRN Pain 02/11/25 11/16/23 History rivaroxaban 20 mg tablet (Xarelto) 20 mg PO DAILY #90 tabs 06/07/24 02/11/25 07/08/24 Rx ondansetron HCl 4 mg tablet 4 mg PO Q8H #20 tabs 07/0902/11/25 Unknown Rx diltiazem HCl 60 mg See Rx Instructions .Route 0 10/05/24 02/11/25 Unknown Rx capsule,extended release 12 hr .COMPLEX #180 caps metoprolol succinate 100 mg 100 mg PO DAILY #90 tabs 0 10/05/24 02/11/25 Unknown Rx tablet,extended release 24 hr methimazole 5 mg tablet 5 mg PO DAILY #90 tabs 02/0802/11/25 Unknown Rx alirocumab 150 mg/mL subcutaneous 150 mg SUBCUT Q14D # 2 mL 02/14/25 Unknown Rx pen injector (Praluent Pen) Allergies Allergy/AdvReac Type Severity Reaction Status Date / Time [id number] Reductase Allergy Mild ADR-Muscle Verified 12/03/24 13:24 Inhibitor Pain codeine Allergy Unknown Unknown Verified 12/03/24 13:24 nitrofurantoin (From Allergy Unknown Unknown Verified 12/03/24 13:24 Macrobid) gabapentin Allergy Double Verified 12/03/24 13:24 Vision PFSH Acute 2 PFSH: Medical History Anticoagulation adequate with anticoagulant therapy A-fib Coronary artery disease Hyperlipemia HTN (hypertension) Pacemaker Surgical History History of radiofrequency ablation (RFA) procedure for cardiac arrhythmia Social History Smoking and tobacco/nicotine status: former use of tobacco/nicotine Quit status (tobacco/nicotine): has quit using Year quit tobacco: been 30 plus years Alcohol intake: never Substance/Drug Use: never Vitals/I&O/Wt Last Vital Signs Temp 97.8 F 03/04/25 13:23 Pulse 67 03/04/25 15:08 Resp 16 03/04/25 13:23 BP 150/68 03/04/25 15:08 Pulse Ox 99 03/04/25 15:08 O2 Del Method Room Air 03/04/25 15:08 03/04/25 03/04/25 03/04/25 06:59 14:59 22:59 Intake Total 0 / 0 Balance 0 / 0 Weight last 48 hrs Weight 155 lb Physical Exam 2 Const: COMMON NORMALS: no acute distress and patient oriented x3 GENERAL APPEARANCE: cooperative and comfortable ORIENTATION/CONSCIOUSNESS: Yes awake, Yes oriented to person, Yes oriented to place and Yes oriented to time Chest: COMMONS NORMALS: normal inspection of the chest and normal palpation of entire chest wall CHEST: Yes Symmetrical chest wall rise Resp: COMMON NORMALS: normal respiratory effort, No retractions, No use of accessory muscles and clear to auscultation bilaterally EFFORT & INSPECTION: Yes symmetric chest movement AUSCULTATION: clear to auscultation bilaterally Cardio: COMMON NORMALS: regular rate, regular rhythm, S1 normal heart sound present, S2 normal heart sound present, No gallops present (Cardio), No clicks present (Cardio), No murmurs present (Cardio) and No rub (Cardio) RATE: r egular rate RHYTHM: regular rhythm HEART SOUNDS: S1 normal heart sound present and S2 normal heart sound present PERIPHERAL PULSES: radial pulses present Extremity: COMMON NORMALS: no pedal edema Neuro: COMMON NORMALS: patient oriented x3 and moves all extremities S ENSORIUM/ORIENTATION: Yes oriented to person, Yes oriented to place and Yes oriented to time Data 03/04/25 14:20 03/04/25 14:20 A&P Assessment and plan 1. Unstable angina: 2. Coronary artery disease: 3. Pacemaker: 4. HTN (hypertension): 5. Hyperlipemia: 6. Anticoagulation adequate with anticoagulant therapy: Plan: She has symptoms consistent with unstable angina. Given her known moderate disease in the LAD and RCA from [facility] 2 years ago, she requires further evaluation with coronary angiogram. She is on anticoagulation with Xarelto, took her last dose yesterday at 3PM. Will plan to keep her NPO after midnight and will evaluate with [facility] tomorrow. If chest pain returns can start nitropaste. Will start heparin infusion. Continue diltiazem 60 mg twice daily (12-hour formulation), metoprolol succinate 100 mg daily. She was given full-strength aspirin in the ER. PDMP PDMP Reviewed: Not Reviewed Coding Level of Care Code Acute Code for Chg Fwd Diagnoses Unstable angina I20.0 Coronary artery disease I25.10 Pacemaker Z95.0 HTN (hypertension) I10 Hyperlipemia E78.5 Anticoagulation adequate with anticoagulant therapy Z79.01
[2025-03-04] MEDS: heparin 5,000 unit/mL INJ 1 mL IVP (15:56)
[2025-03-04] MEDS: heparin drip 25,000 UNIT/500 ML PREMIX 20 UNIT IV (15:57)
[2025-03-04 16:24] VITALS: BP 178/64; PULSE 64; O2SAT 98
[2025-03-04 16:45] VITALS: BMI 27.4
[2025-03-04 17:02] VITALS: BP 182/78; PULSE 63; RESP 21; TEMP 36.8; O2SAT 98
[2025-03-04 17:31] LABS: Troponin 5 2HR < 6.0 ng/L (0-10); Troponin 5 2HR Delta 0 ABS# (0-10)
--- NOTE | 2025-03-04 17:58 | P.HP_ITS ---
Providers/Chief Complaint 2 Admitting Physician: Chandra Garcia Primary Care Provider: Delmer Shaver MD Chief Complaint: CP N/V SOB History of Present Illness Sunny Soria is a 84 year old woman with a history of AFib, on anticoagulation, coronary artery disease, radiofrequency ablation for cardiac arrhythmia with pacemaker in place, hypertension, hyperlipidemia, subclinical hyperthyroidism, and thyroid nodule presenting with chest pain/tightness and palpitations. Chest discomfort has been present for 4?5 months, worse over the last couple of days, and was particularly severe today. Took nitroglycerin at home with improvement about 40 minutes later. Associated symptoms during the severe episode included diaphoresis and retching. Reports intermittent brief chest pains that come and go; episodes can awaken her at night. Exertional dyspnea noted (became short of breath walking from waiting room to exam room). Denies fever, chills, diarrhea, myalgias, rash, hematochezia/melena, or hematuria. Denies known chronic lung disease (no asthma, chronic obstructive pulmonary disease, or emphysema). Recent pulmonary function test performed two days ago; results not yet known. Denies leg swelling. Prior testing: stress test in September negative for ischemia. Coronary angiogram in 2022 showed moderate mid- left anterior descending (LAD) and right coronary artery (RCA) stenoses, non- ischemic by instantaneous wave-free ratio (iFR), so no intervention at that time. Review of Systems 2 Const: Denies: fever(s), chills, body aches or malaise ENMT: Denies: throat pain Card: Reports: chest pain (Tightness); Denies: edema, pre-syncope or dyspnea on exertion Resp: Denies: dyspnea, productive cough, change in phlegm color or hemoptysis GI: Denies: abdominal pain, nausea, vomiting, diarrhea, constipation, hematochezia or melena : Denies: flank pain, urinary frequency or hematuria Musc: Denies: back pain, joint swelling or joint redness Skin/Breast: Denies: rash or new lesions Neuro: Denies: headache(s) or confusion Medications/Allergies Home Medications ?Medication ?Instructions ?Recorded ?Confirmed ?Last Taken ?Type nitroglycerin 0.4 mg sublingual 0.4 mg sublingual Q5M PRN Pain 04/17/23 03/04/25 Unknown History tablet (Nitrostat) tramadol 50 mg tablet 50 mg PO BID PRN Pain 03/04/25 03/03/25 20:00 History diltiazem HCl 60 mg See Rx Instructions .Route 0 10/05/24 03/04/25 03/04/25 08:00 Rx capsule,extended release 12 hr .COMPLEX #180 caps metoprolol succinate 100 mg 100 mg PO DAILY #90 tabs 0 10/05/24 03/04/25 03/04/25 Rx tablet,extended release 24 hr alirocumab 150 mg/mL subcutaneous 150 mg SUBCUT Q14D # 2 mL 02/14/25 03/04/25 02/11/25 Rx pen injector (Praluent Pen) ibuprofen 200 mg tablet (Advil) 200 mg PO QPM 03/04/25 03/04/25 03/03/25 20:00 History rivaroxaban 20 mg tablet (Xarelto) 20 mg PO QPM 03/04/25 03/03/25 17:00 History Allergies Allergy/AdvReac Type Severity Reaction Status Date / Time Pnuollw-UNB-YmS Reductase Allergy Mild ADR-Muscle Verified 12/03/24 13:24 Inhibitor Pain codeine Allergy Unknown Unknown Verified 12/03/24 13:24 nitrofurantoin (From Allergy Unknown Unknown Verified 12/03/24 13:24 Macrobid) gabapentin Allergy Double Verified 12/03/24 13:24 Vision PFSH Acute 2 PFSH: Medical History Colon cancer Joint pain Cataract Thyroid nodule Hyperthyroidism Anticoagulation adequate with anticoagulant therapy A-fib Coronary artery disease Hyperlipemia HTN (hypertension) Pacemaker Surgical History Hx of cholecystectomy H/O bilateral hip replacements Hx of hysterectomy Hx of colonoscopy 10 yrs ago History of radiofrequency ablation (RFA) procedure for cardiac arrhythmia Social History Smoking and tobacco/nicotine status: former use of tobacco/nicotine Quit status (tobacco/nicotine): has quit using Year quit tobacco: been 30 plus years Alcohol intake: never Substance/Drug Use: never Vitals/I&O/Wt Last Vital Signs Temp 98.2 F 03/04/25 17:02 Pulse 63 03/04/25 17:02 Resp 21 H 03/04/25 17:02 BP 182/78 03/04/25 17:02 Pulse Ox 98 03/04/25 17:02 O2 Del Method Room Air 03/04/25 17:02 03/04/25 03/04/25 03/04/25 06:59 14:59 22:59 Intake Total 0 / 0 Balance 0 / 0 Weight last 48 hrs Weight 70.307 kg Weight 70.307 kg Physical Exam 2 Const: COMMON NORMALS: patient oriented x3 and alert GENERAL APPEARANCE: c ooperative ORIENTATION/CONSCIOUSNESS: Yes awake HENMT: COMMON NORMALS: oropharynx normal Neck/C-Spine: COMMON NORMALS: no JVD Resp: COMMON NORMALS: normal respiratory effort and clear to auscultation bilaterally AUSCULTATION: clear to auscultation bilaterally Cardio: COMMON NORMALS: no JVD, regular rhythm, S1 normal heart sound present, S2 normal heart sound present and No murmurs present (Cardio) RHYTHM: regular rhythm HEART SOUNDS: S1 normal heart sound present and S2 normal heart sound present GI: COMMON NORMALS: Normal to inspection, nondistended, normoactive bowel sounds present, Soft to palpation and non-tender PALPATION: Yes Soft to palpation Extremity: COMMON NORMALS: no joint enlargement and no pedal edema Neuro: COMMON NORMALS: patient oriented x3 and moves all extremities S ENSORIUM/ORIENTATION: Yes alert Skin: COMMON NORMALS: no rashes or lesions noted GENERAL SKIN EXAM: no rashes or lesions noted Data 03/04/25 14:20 03/04/25 14:20 A&P Assessment and plan 1. Unstable angina: ED evaluation notable for normal baseline troponin; electrocardiogram (EKG) interpreted as sinus rhythm with incomplete right bundle branch block (RBBB), flattened T waves in aVL and V2, poor R wave progression, left anterior fascicular block (LAFB), possible left ventricular hypertrophy (LVH), no Q waves. Prior September stress test negative; 2022 angiogram with moderate mid-LAD and RCA stenoses non-ischemic by iFR. Symptoms improved after home nitroglycerin. Reviewed vitals, CBC, CMP, troponin, EKG, and my interpretation incomplete RBBB, LAF, T wave flattening in aVL and V2, pending official read. Reviewed cardiology note, they reviewed ED provider note, discussed with ED provider. - Aspirin 324 mg given in ED. - Heparin drip started in ED. monitor for risk of bleeding. Monitor PTT. Repeat blood counts. - Gentle intravenous hydration started in ED. - Cardiology consultation obtained. - Plan to complete cardiac studies. Reviewed recent echocardiogram from October, normal ejection fraction at that time mild MVR, mild TVR, trace PVR 2. HTN (hypertension): Continue metoprolol and diltiazem. Monitor blood pressures. Cardiac diet. Plan: Dyspnea on exertion: She had recently had a PFT, no results available in the chart. Will see if could request from PCPs office. Elevated liver enzymes : Chemistry with mild hyperglycemia (130 mg/dL). Aspartate aminotransferase (AST) 217 U/L and alanine aminotransferase (ALT) 178 U/L elevated; bilirubin normal. Alk phos with some moderate elevation 266. Patient reports prior advice to stop acetaminophen and thyroid medication; believes elevations began after starting thyroid medication; currently off both. PCP previously noted elevations. - Plan to check hepatitis panel. - Plan to check muscle enzyme (e.g., creatine kinase) per discussion. - Advised to avoid acetaminophen for now. - Advised to avoid ibuprofen due to cardiac and potential hepatic risk; consider tramadol for pain as needed. - Discussed trying topical analgesics (e.g., menthol) and non-pharmacologic options (e.g., acupuncture) for pain management. Hyperlipidemia : On alirocumab due to statin allergy; patient noted recent cholesterol increase. - No changes specified during this encounter. Follow-up : Care coordination and preferences. - Respiratory team alerted previously to evaluate for pulmonary issues; recent pulmonary function test pending. - Documented advance directive preference: okay to attempt resuscitation but does not want prolonged life support if no reasonable hope of recovery. PDMP PDMP Reviewed: Not Reviewed Attestations 2 Medical Necessity Statement*: Place observation for additional assessment management of possible unstable angina in a lady with known underlying coronary disease and risk factors. and High MDM includes amount and/or complexity of data reviewed/ordered [ previous or external records, resulted lab(s)/test(s), ordered lab(s)/test(s), independent test interpretation and other healthcare professional discussion] and described risk of complication, morbidity or mortality of management as documented Diagnoses Unstable angina I20.0 HTN (hypertension) I10
--- NOTE | 2025-03-04 19:46 | ECG_ITS ---
[facility] Date: 2025-03-04 Pat Name: Sunny Soria Department: Room: 112 Gender: Female Pig Handler: : 1940 Requested By: Cecily Zee Order Number: [id number] Abel MD: Maurisio Bess M.D. Measurements Intervals [place] Rate: 61 P: 64 SC: 199 QRS: -52 QRSD: 102 T: 27 QT: 387 QTc: 393 Interpretive Statements SINUS RHYTHM INCOMPLETE RIGHT BUNDLE BRANCH BLOCK [90+ ms QRS DURATION, TERMINAL R IN V1/V2, 40+ ms S IN I/aVL/V4/V5/V6] LEFT ANTERIOR FASCICULAR BLOCK [QRS AXIS <= -45, QR IN I, RS IN II] MODERATE VOLTAGE CRITERIA FOR LVH, CONSIDER NORMAL VARIANT [MEETS CRITERIA IN ONE OF: R(aVL), S(V1), R(V5), R(V5/V6)+S(V1)] Compared to ECG 03/04/2025 14:36:40 No significant changes Electronically Signed On 03-04-2025 20:25:19 CDT by Maurisio Bess M.D. [email or web address]
[2025-03-04 20:00] VITALS: BP 167/87; PULSE 60; RESP 17; TEMP 36.6; O2SAT 96
[2025-03-04 21:18] LABS: Troponin 5 6HR 8.42 ng/L (0-10); Troponin 5 6HR Delta 2.42001 ng/L (0-12)
[2025-03-04 22:00] VITALS: PULSE 60
[2025-03-04 22:54] LABS: Partial Thromboplastin Time 131.0 SECONDS (23.9-36.7)
[2025-03-05] VITALS (9 sets, daily range): BP systolic 119–159; BP diastolic 59–82; PULSE 60–65; RESP 18–24; TEMP 36.3–37.1; O2SAT 95–97
[2025-03-05 04:37] LABS: Hematocrit 35.5 % (36-47); Hemoglobin 11.50 g/dL (11.27-16.99); Mean Corpuscular HGB Conc 32.4 g/dL (30-55); Mean Corpuscular Hemoglobin 28.3 pg (27-33); Mean Corpuscular Volume 87.4 fl (85-98); Nucleated Red Blood Cells % 0 %; Platelet Count 215 10^3/cmm (157-399); Red Blood Count 4.06 10^6/uL (3.85-5.65); White Blood Count 7.67 10^3/uL (3.29-11.43)
[2025-03-05 04:56] LABS: Alanine Aminotransferase 191 U/L (0-33); Albumin Level 3.6 g/dL (3.5-5.2); Alkaline Phosphatase 263 U/L (35-105); Anion Gap 13.1 (5-19); Aspartate Amino Transferase 143 U/L (0-32); Blood Urea Nitrogen 14 mg/dL (8-23); Calcium 8.8 mg/dL (8.5-10.5); Carbon Dioxide 24 mmol/L (22-29); Chloride 104 mmol/L (98-107); Creatinine Clr Calc Pharmacy 49.2220; Globulin 3.0 g/dL (1.3-4.6); Glucose 102 mg/dL (65-115); Osmolality Calculated 285 mOsm/kg (285-295); Potassium 4.1 mmol/L (3.5-5.1); Sodium 137 mmol/L (136-145); Total Protein 6.6 g/dL (6.6-8.7)
[2025-03-05 06:00] LABS: Partial Thromboplastin Time 105.0 SECONDS (23.9-36.7)
--- NOTE | 2025-03-05 07:31 | XACV_ITS ---
Exam Room: [facility] Ht: 160 cm Wt: 69 kg BSA: 1.77 m2 Gender: Female : 1940 Any Known Allergies: Other Exam Priority: Routine Procedure(s): Procedure Description: Diagnostic procedure Procedure Description: PCI procedure Procedure Description: Drug Eluting Coronary Stent Procedure Description: PTCA Procedure Description: Miscellaneous Procedure Description: ACT Procedure Description: Coronary Angiography Procedure Description: Pressure Wire Diagnostic Cath Status: Urgent Diagnostic Findings * INDICATION: Unstable angina. * Left Main has mild luminal irregularities. * Circumflex has mild luminal irregularities. * Right Coronary Artery has mild to moderate in-stent restenosis. * Mid Left Anterior Descending to Mid Left Anterior Descending: obstructive 70% stenosis, GUILLERMINA: 3 flow. * Coronary angiography shows right dominance. PCI Status: Urgent PCI Indication: Other Interventional Findings * Procedure detail: We performed iFR of mid LAD that showed a value of 0.90. Given unstable angina symptoms with borderline iFR value of 0.90 along with 70% stenosis, we decided to proceed with PCI. We pre-dilated the stenosis with 3.0x15 mm NC balloon. This was followed by placement of 3.0 x 18 mm resolute [place] drug-eluting stent. At this time final angiogram was performed that showed excellent stent expansion and no residual stenosis. Guidewire and guide catheter removed. Patient left the Area Field Worker in stable condition.. * Mid Left Anterior Descending to Mid Left Anterior Descendin% stenosis treated with a MDT STAS EUPHORA RX [id number] BALLOON, and MDT Meliton MUMTAZ 3.0X18 LINDSAY. 0% residual stenosis, GUILLERMINA: 3 flow. Conclusions 1. Severe mid LAD stenosis s/p PCI with 1 stent. 2. Mid Left Anterior Descending to Mid Left Anterior Descending was treated with a Balloon, and Drug Eluting Stent. Recommendations * Plavix and Xarelto. * High intensity statin therapy. * Outpatient cardiology follow up in 2 weeks. Interventional RX Recommendation: PCI w/o planned CABG Anticoagulation: Heparin Pressures Phase:Rest AO : 97 / 66 ( 81 ) @ 9:20:00 AM 102 / 55 ( 77 ) @ 9:28:00 AM 97 / 54 ( 71 ) @ 9:49:00 AM Clinical Evaluation EBL: 5mL-10mL Procedural Details Procedure Consent Obtained. Pre-Procedure Time Out. Identified patient by full name and date of as verbalized by the patient/guarantor. Does the consent match the physician's order: Yes. Accurate & Complete Informed Consent: Yes. Inpatient/Outpatient History & Physical on Chart: Yes. If H&P is completed, is and addenduem needed: No. Visualize and Verify Site with Patient/Guarantor: N/A. Relevant Radiology Images available: Yes. The risks, benefits, and alternatives of sedation and/or procedure were discussed by physician. The patient agrees to continue. Procedure started. HA Clinical Fraility Score: 3: Managing Well. Area Field Worker Indications: New Onset Angina/Unstable angina. Chest Pain Symptom Assessment: Typical Angina Symptoms. Cardiovascular Instability: No. Correct patient, site and procedure confirmed by cath team. Current diagnosis: Unstable angina. PERRLA. Strong, equal hand assessment services manager bilaterally. Lungs clear x 5 lobes. IV Site on Arrival: 20 gauge in the right anticubital. IV Site on Arrival: 20 gauge in the left forearm. IV Fluids: 0.9% NaCl at KVO. 100 mL infused prior to cathodic protection technician. Pre Procedural Pulses: bilateral radial was 2+. Oxygen started at 2liters/min via nasal canula. right groin was prepped with chloroprep then draped in the usual sterile fashion. right radial was prepped with chloroprep then draped in the usual sterile fashion. Physician notified. Baseline sample Acquired. HR: 73 BPM. Patient's family unavailable. Equipment: 6F - Radial. Cardiac Cath Pack. ACIST Manifold Kit Model BT 2000. Heparinized Saline (2 units/mL), 1000 mL bag. Physician arrived. Physician scrubbed in. Immediate Pre-Procedure Time Out. Correct Patient: Yes; Correct Procedure: Yes; Correct Site: Yes; Correct Patient Position: Yes; Correct Supplies: Yes; Dried Flammable Prep: Yes; Blood Products Available: N/A;. Lidocaine 1% infiltrated to the right radial. Arterial access obtained. A 5 martiniquais TIG catheter in over the standard J wire. Multiple views taken of left coronary artery. Catheter redirected to the RCA. Multiple views taken of right coronary artery. Catheter removed over the exchange J wire. 6 martiniquais XB 3 guide catheter was inserted over the exchange J wire. Runthrough guidewire was advanced through the guide catheter to lesion in the mid LAD. iFR guidewire was advanced through the guide catheter, unable to cross lesion in the Mid LAD. Out to reshape. iFR guidewire was advanced through the guide catheter, unable to cross the lesion in the mid LAD. iFR wire out. Runthrough guidewire out. Guide catheter out over the exchange J wire. Moving to Femoral access. A TR Band was successful obtaining hemostatsis at the Right Radial artery insertion site. Lidocaine 1% infiltrated to the right groin. Arterial access obtained with micropuncture set. 6 martiniquais XB 3 guide catheter was inserted over the exchange J wire. Guide catheter out over the exchange J wire. 6 martiniquais JL 4 guide catheter was inserted over the exchange J wire. iFR guidewire was advanced through the guide catheter to lesion in the mid LAD. iFR spot of the Mid LAD = 0.90 with a pullback of 0.90. PCI Indication: CAD (without ischemic symptoms). Runthrough guidewire was advanced through the guide catheter to lesion in the mid LAD. iFR wire out. Inflation number : 1 A MDT STAS EUPHORA RX [id number] BALLOON was prepped and advanced across the Mid LAD , then inflated to 12 CLARA for 0:12 seconds. Balloon out. Inflation Number : 2 A NESS Coelho MUMTAZ 3.0X18 LINDSAY -Lot Number# [id number] Exp. was prepped and advanced across the Mid LAD. The stent was deployed at 12 CLARA for 0:16 seconds. Stent balloon out over wire. Inflation number: 3 The MDT STAS EUPHORA RX [id number] BALLOON was reinflated across the Mid LAD, to 20 CLARA for 0:17 seconds. Balloon out. Results checked. Wire out. Guide catheter out over the exchange J wire. A Right femoral angiogram was performed to determine safe placement of closure device. ACT drawn. Results Out of range HI. Will redraw. ACT drawn. Results 306 seconds. Therapeutic limits - pre-heparin administration 90-150 seconds and monitoring heparin during a vascular procedure >250 seconds. A Angio-Seal VIP ([place]) was successful obtaining hemostatsis at the Right Femoral artery insertion site. Angioseal placed without complications. No signs or symptoms of hematoma noted. Sterile dressing applied per usual sterile fashion. Lot # [id number]. Exp. . Post Procedure: bilateral dorsalis pedis pulse 1+. Post Procedure: bilateral posterior tibial pulse 1+. PERRLA. Strong, equal hand assessment services manager bilaterally. No VTE prophylaxis required. Medication's Wasted: Nitro = 49.8 mg. Medication's Wasted: Other = Versed 1 mg. Medication's Wasted: Other = Fentanyl 50 mcg. Total IV fluids: 85 mL. Post-op diagnosis: iFR of Mid LAD 0.90 S/P one LINDSAY. Complications: none. Estimated blood loss: 5mL-10mL. Responsiveness - Normal response to verbal stimuli; alert and oriented, PERRLA. Airway - Unaffected, no intervention required; spontaneous ventilation. Circulation: W/N/L, pulses unchanged. Nausea/Vomiting: No. Vital chart was stopped. Procedure completed. Patient transferred by bed to 1st floor. Access Site Site: Right Radial artery Sheath Size: 6 Fr Hemostasis Method: TR Band Hemostasis Success: Successful Site: Right Femoral artery Sheath Size: 6 Fr Hemostasis Method: Angio-Seal VIP ([place]) Hemostasis Success: Successful Procedure Medications Start: 8:08 AM Stop: 8:08 AM Medication: Versed Amount: 1 mg Route: I.V. Start: 8:08 AM Stop: 8:08 AM Medication: Fentanyl Amount: 50 mcg Route: I.V. Start: 8:15 AM Stop: 8:15 AM Medication: Nitrogylcerin Amount: 200 mcg Route: I.A. Start: 8:15 AM Stop: 8:15 AM Medication: Versed Amount: 1 mg Route: I.V. Start: 8:20 AM Stop: 8:20 AM Medication: Fentanyl Amount: 25 mcg Route: I.V. Start: 8:25 AM Stop: 8:25 AM Medication: Heparin Amount: 5000 units Route: I.V. Start: 8:31 AM Stop: 8:31 AM Medication: Fentanyl Amount: 25 mcg Route: I.V. Start: 8:43 AM Stop: 8:43 AM Medication: Versed Amount: 1 mg Route: I.V. Start: 8:43 AM Stop: 8:43 AM Medication: Fentanyl Amount: 25 mcg Route: I.V. Start: 9:01 AM Stop: 9:01 AM Medication: Heparin Amount: 1000 units Route: I.V. Start: 9:07 AM Stop: 9:07 AM Medication: Fentanyl Amount: 25 mcg Route: I.V. Start: 9:17 AM Stop: 9:17 AM Medication: Aspirin Amount: 81 mg Route: P.O. Start: 9:18 AM Stop: 9:18 AM Medication: Plavix Amount: 600 mg Route: P.O. I, the attending physician, have reviewed and verified all procedure medications. Yes, all medications given per verbal order History/Risk Factors Hypertension: Yes Dyslipidemia: Yes Peripheral Arterial Disease (PAD): No Myocardial Infarction (TX): No Obesity: No Renal Disease: No Tobacco Use: Former Prior Interventions PCI: No CABG: No Valve Surgery: No Report Signatures Finalized by Myles Quintero MD on 03/20/2025 09:10 AM
[2025-03-05] MEDS: dilTIAZem ER (12HR) 60 mg Capsule PO ×2 (07:47→16:50)
[2025-03-05] MEDS: metoprolol succinate ER (24 HR) 100 mg Tablet PO (07:48)
--- NOTE | 2025-03-05 08:02 | W.PM.OPSUD ---
Surgery/Procedure H&P Update DATE OF PROCEDURE: March 05, 2025 DATE H&P PERFORMED: 03/05/25 H&P UPDATE INFORMATION: I have reviewed H&P completed within last 30 days, I have examined patient prior to procedure and No changes to prior documentation PREOP DIAGNOSIS: Unstable angina PRIMARY INDICATION FOR PROCEDURE: Unstable angina PLANNED PROCEDURE: Operation Date: 03/05/25 08:00 Proposed Procedures p Cardiac Catheterization(Not Applicable) - Myles Quintero M.D Possible percutaneous coronary intervention PATIENT REASSESSED PRIOR TO SEDATION, WITH NO CHANGE NOTED: Yes PHYSICAL EXAM: alert, oriented x 3, clear to auscultation bilaterally and regular rate & rhythm AIRWAY EVAL/ANESTHESIA PLAN: normal airway, ASA III, Local Anesthesia, Risks, benefits & alternatives of sedation and/or procedure discussed and Patient agrees to continue as planned ADDITIONAL INFORMATION: Moderate sedation
[2025-03-05 08:43] LABS: Hepatitis A Antibody IgM Non-Reactive (Nonreactive); Hepatitis B Surface Antigen Non-Reactive (Nonreactive)
--- NOTE | 2025-03-05 08:48 | USR_ITS ---
PROCEDURE INFORMATION: Exam: US Abdomen, Limited; Right Upper Quadrant Exam date and time: 03/05/2025 9:41 AM Age: 84 years old Clinical indication: Abdominal pain; Acute; Prior surgery; Surgery date: 6+ months; Surgery type: Gb removed; Additional info: Liver TECHNIQUE: Imaging protocol: Real time ultrasound of the abdomen with image documentation. Limited exam focused on the right upper quadrant. COMPARISON: No relevant prior studies available. FINDINGS: Liver: Hepatic steatosis. Gallbladder: Post cholecystectomy changes are seen. Biliary ducts: Common bile duct is markedly dilated measuring 2.5 cm. Pancreas: Visualized pancreas is unremarkable. Right kidney: Right kidney measures 9.2 x 4.9 x 4.9 cm. Aorta: Visualized aorta is within normal limits. Portal venous: Main portal vein is patent with hepatopetal flow. US/US liver [id number] IMPRESSION: 1. Common bile duct is markedly dilated measuring 2.5 cm. Correlation with patient's laboratory value is advised. If there is clinical concern for biliary obstructive process, ERCP or MRCP can be obtained for further evaluation. 2. Hepatic steatosis.
--- NOTE | 2025-03-05 09:19 | P.PCN_ITS ---
Procedure Note: Date of procedure: 03/05/25 Pre-procedure diagnosis: Unstable angina Post-procedure diagnosis: other (Severe mid LAD stenosis s/p PCI with 1 stent) Procedure: Moderate to severe mid LAD stenosis. iFR is borderline with value of 0.90. With patient's unstable angina symptoms, decision made to proceed with PCI of mid LAD with 1 stent. Excellent angiographic results. Aspirin and plavix for today. Can resume Xarelto today evening. At time of discharge home tomorrow, patient can be discharged on plavix and xarelto Performing Provider: Myles Quintero Estimated blood loss (mL): 10 Complications: None Condition: stable Disposition: floor Coding Level of Care Code Acute Code for [facility] Fwjaquelin
--- NOTE | 2025-03-05 10:01 | CTR_ITS ---
PROCEDURE INFORMATION: Exam: CT Abdomen And Pelvis Without Contrast Exam date and time: 03/05/2025 1:24 PM Age: 84 years old Clinical indication: Other: Cbd dilatation, intra hepatic dilation TECHNIQUE: Imaging protocol: Computed tomography of the abdomen and pelvis without contrast. Radiation optimization: All CT scans at this facility use at least one of these dose optimization techniques: automated exposure control; mA and/or kV adjustment per patient size (includes targeted exams where dose is matched to clinical indication); or iterative reconstruction. COMPARISON: [place] liver [id number] 03/05/2025 9:41 AM RADIATION DOSE METRICS: Total DLP (mGy-cm): 611.1 FINDINGS: Lungs: Right lower lobe 9 mm nodule (4/9). Coronary arteries: Coronary calcifications are seen. Liver: Right hepatic cysts 1.1 x 1.2 cm. Gallbladder and biliary ducts: Common bile duct measures 2.8 cm. Intrahepatic biliary ductal dilatation. Pancreas: Normal. No ductal dilation. Spleen: Normal. No splenomegaly. Adrenal glands: Normal. No mass. Kidneys and ureters: Normal. No hydronephrosis. Stomach and bowel: Diffuse diverticulosis is seen. Diffuse colonic stool material. No small bowel loop dilatation. Appendix: Appendix is not visualized. Intraperitoneal space: Unremarkable. No free air. No significant fluid collection. Vasculature: Mild calcified atherosclerotic changes are seen throughout the abdominal aorta. Lymph nodes: Unremarkable. No enlarged lymph nodes. Urinary bladder: Bladder appears distended. Reproductive: Post hysterectomy changes are seen. Bones/joints: Suboptimal pelvic evaluation due to bilateral hip replacement metallic artifacts. Moderate lumbar spine degenerative changes. Soft tissues: Right groin postsurgical changes are seen. CT/CT abdomen pelvis wo con [id number] IMPRESSION: 1. Intrahepatic and extrahepatic biliary ductal dilatation. No definite pancreatic head mass seen. MRCP for further evaluation is advised. 2. Bladder appears distended. 3. Coronary calcifications. 4. Mild calcified atherosclerotic changes are seen throughout the abdominal aorta. 5. Diffuse diverticulosis is seen. 6. Diffuse colonic stool material. Clinical correlation to exclude constipation is advised. 7. Moderate lumbar spine degenerative changes. 8. Right lower lobe 9 mm nodule (4/9). For both low risk and high risk patients, consider CT Chest at 3 months, PET/CT, or biopsy (Reference: [facility]). REFERENCES: [facility] Gurrola et al. Guidelines for Management of Incidental Pulmonary Nodules Detected on CT Images: From the Fleischner Society 2017. Radiology. 2017;284(1):228-243.
[2025-03-05 10:26] LABS: Lipase 50 U/L (13-60)
--- NOTE | 2025-03-05 12:00 | P.PN_ITS ---
Subjective 2 Subjective: Patient underwent PCI of LAD with 1 stent. RCA is patent. Vitals/I&O/Wt Last Vital Signs Temp 98.4 F 03/05/25 04:00 Pulse 61 03/05/25 09:25 Resp 18 03/05/25 09:25 BP 149/81 03/05/25 09:25 Pulse Ox 97 03/05/25 09:25 O2 Del Method Room Air 03/05/25 09:25 03/04/25 03/05/25 03/05/25 22:59 06:59 14:59 Intake Total 360 / 360 255.933 / 615.933 240 / 240 Balance 360 / 360 255.933 / 615.933 240 / 240 Weight last 48 hrs Weight 153 lb 14.4 oz Weight 155 lb Weight 155 lb Physical Exam 2 Narrative: GENERAL: Patient is alert, awake and oriented x3. [] NECK: No jugular vein distension. [] HEENT: No cyanosis. No icterus. No pallor. [] HEART: Regular S1 and S2. No murmur, rub or gallop. [] LUNGS: Clear to auscultate bilaterally. [] CENTRAL NERVOUS SYSTEM: Grossly nonfocal. [] EXTREMITIES: Lower extremities with no edema bilaterally. Data 03/06/25 02:24 03/06/25 02:24 A&P Assessment and plan 1. Unstable angina: 2. HTN (hypertension): 3. Dilated cbd, acquired: 4. Transaminitis: Plan: Patient had PCI of LAD today. Continue Plavix. Will start Xarelto in the evening. Medicine team working up elevated LFTs. Thank you for involving us with care of this patient. Please call with questions. PDMP PDMP Reviewed: Not Reviewed Attestations 2 Medical Necessity Statement*: Care expected to cross 2 midnights Coding Level of Care Code Acute Code for Chg Fwd Diagnoses Unstable angina I20.0 HTN (hypertension) I10 Dilated cbd, acquired K83.8 Transaminitis R74.01
[2025-03-05 13:20] LABS: Partial Thromboplastin Time 78.1 SECONDS (23.9-36.7)
--- NOTE | 2025-03-05 18:25 | P.PN_ITS ---
Subjective 2 Subjective: Patient was seen this morning, currently alert oriented x 3, follow commands, she is status post cardiac cath LAD stenting, we discussed her transaminitis, discussed liver ultrasound findings of CBD dilation Tatian to 2.5 cm, she denies any right upper quadrant pain, she did tell me that last week she felt unwell, she had abdominal pain felt nauseous, denies any jaundice, discussed she does not have any hyperbilirubinemia, her transaminitis is improving, but we will pursue a CT of the abdomen, she might require an MRCP based on clinical progress, Vitals/I&O/Wt Last Vital Signs Temp 98.4 F 03/05/25 16:00 Pulse 65 03/05/25 16:00 Resp 24 H 03/05/25 16:00 BP 145/82 03/05/25 16:00 Pulse Ox 96 03/05/25 16:00 O2 Del Method Room Air 03/05/25 16:00 03/05/25 03/05/25 03/05/25 06:59 14:59 22:59 Intake Total 255.933 / 615.933 600 / 600 Balance 255.933 / 615.933 600 / 600 Weight last 48 hrs Weight 69.808 kg Weight 70.307 kg Weight 70.307 kg Physical Exam 2 Const: COMMON NORMALS: no acute distress and patient oriented x3 Resp: COMMON NORMALS: normal respiratory effort, No retractions, No use of accessory muscles and clear to auscultation bilaterally AUSCULTATION: clear to auscultation bilaterally Cardio: COMMON NORMALS: regular rate, regular rhythm, S1 normal heart sound present and S2 normal heart sound present RATE: regular rate RHYTHM: r egular rhythm HEART SOUNDS: S1 normal heart sound present and S2 normal heart sound present GI: COMMON NORMALS: Normal to inspection, nondistended, normoactive bowel sounds present and non-tender Extremity: COMMON NORMALS: no pedal edema Neuro: COMMON NORMALS: patient oriented x3 Psych: COMMON NORMALS: mental status grossly normal Data 03/05/25 04:00 03/05/25 04:00 A&P Assessment and plan 1. Unstable angina: - Status post coronary angiography, LAD stenting - Monitor for chest pain - Continue Plavix - Resume Eliquis tonight - Continue IV fluids 2. HTN (hypertension): 3. Dilated cbd, acquired: 4. Transaminitis: - Transaminitis, elevated GGT, elevated alk phos - GGT 625 - AST 143 - ALT 191 - Alk phos 263 Liver ultrasound US/US liver [id number] IMPRESSION: 1. Common bile duct is markedly dilated measuring 2.5 cm. Correlation with patient's laboratory value is advised. If there is clinical concern for biliary obstructive process, ERCP or MRCP can be obtained for further evaluation. 2. Hepatic steatosis. CT abdomen/pelvis CT/CT abdomen pelvis wo con [id number] IMPRESSION: 1. Intrahepatic and extrahepatic biliary ductal dilatation. No definite pancreatic head mass seen. MRCP for further evaluation is advised. 2. Bladder appears distended. 3. Coronary calcifications. 4. Mild calcified atherosclerotic changes are seen throughout the abdominal aorta. 5. Diffuse diverticulosis is seen. 6. Diffuse colonic stool material. Clinical correlation to exclude constipation is advised. 7. Moderate lumbar spine degenerative changes. 8. Right lower lobe 9 mm nodule (4/9). For both low risk and high risk patients, consider CT Chest at 3 months, PET/CT, or biopsy (Reference: [facility]). Plan: Dyspnea on exertion: Monitor Hyperlipidemia : On alirocumab due to statin allergy; patient noted recent cholesterol increase. - No changes specified during this encounter. PDMP PDMP Reviewed: Not Reviewed Attestations 2 Medical Necessity Statement*: Patient requires hospitalization for unstable angina status post coronary angiography, now with transaminitis Diagnoses Unstable angina I20.0 HTN (hypertension) I10 Dilated cbd, acquired K83.8 Transaminitis R74.01
[2025-03-06 04:00] VITALS: BP 134/70; PULSE 68; RESP 22; TEMP 36.7; O2SAT 95
[2025-03-06 04:14] LABS: Hematocrit 34.2 % (36-47); Hemoglobin 11.10 g/dL (11.27-16.99); Mean Corpuscular HGB Conc 32.5 g/dL (30-55); Mean Corpuscular Hemoglobin 28.0 pg (27-33); Mean Corpuscular Volume 86.4 fl (85-98); Nucleated Red Blood Cells % 0 %; Platelet Count 196 10^3/cmm (157-399); Red Blood Count 3.96 10^6/uL (3.85-5.65); White Blood Count 8.35 10^3/uL (3.29-11.43)
[2025-03-06 04:50] LABS: Alanine Aminotransferase 119 U/L (0-33); Albumin Level 3.5 g/dL (3.5-5.2); Alkaline Phosphatase 205 U/L (35-105); Anion Gap 13.1 (5-19); Aspartate Amino Transferase 49 U/L (0-32); Blood Urea Nitrogen 17 mg/dL (8-23); Calcium 8.7 mg/dL (8.5-10.5); Carbon Dioxide 24 mmol/L (22-29); Chloride 102 mmol/L (98-107); Creatinine Clr Calc Pharmacy 49.0571; Globulin 2.9 g/dL (1.3-4.6); Glucose 101 mg/dL (65-115); Osmolality Calculated 282 mOsm/kg (285-295); Potassium 4.1 mmol/L (3.5-5.1); Sodium 135 mmol/L (136-145); Total Protein 6.4 g/dL (6.6-8.7)
[2025-03-06 08:00] VITALS: BP 133/83; PULSE 77; RESP 24; TEMP 36.5; O2SAT 97
[2025-03-06] MEDS: dilTIAZem ER (12HR) 60 mg Capsule PO (09:16)
[2025-03-06] MEDS: metoprolol succinate ER (24 HR) 100 mg Tablet PO (09:16)
--- NOTE | 2025-03-06 09:46 | P.PN_ITS ---
Subjective 2 Subjective: Patient is doing well. No chest pain. Vitals/I&O/Wt Last Vital Signs Temp 97.7 F 03/06/25 08:00 Pulse 77 03/06/25 08:00 Resp 24 H 03/06/25 08:00 BP 133/83 03/06/25 08:00 Pulse Ox 97 03/06/25 08:00 O2 Del Method Room Air 03/06/25 08:00 03/05/25 03/06/25 03/06/25 22:59 06:59 14:59 Intake Total 1364.067 / 1964.067 240 / 240 Balance 1364.067 / 1964.067 240 / 240 Weight last 48 hrs Weight 160 lb 6.4 oz Weight 153 lb 14.4 oz Weight 155 lb Weight 155 lb Physical Exam 2 Narrative: GENERAL: Patient is alert, awake and oriented x3. [] NECK: No jugular vein distension. [] HEENT: No cyanosis. No icterus. No pallor. [] HEART: Regular S1 and S2. No murmur, rub or gallop. [] LUNGS: Clear to auscultate bilaterally. [] CENTRAL NERVOUS SYSTEM: Grossly nonfocal. [] EXTREMITIES: Lower extremities with no edema bilaterally. Data 03/06/25 02:24 03/06/25 02:24 A&P Assessment and plan 1. Worsening angina: 2. Dilation of biliary tract: 3. Dilated cbd, acquired: 4. Transaminitis: Plan: Patient is stable to be discharged from cardiac standpoint.Continue xarelto and plavix Thank you for involving us with care of this patient. Please call with questions. PDMP PDMP Reviewed: Not Reviewed Attestations 2 Medical Necessity Statement*: Care expected to cross 2 midnights. Coding Level of Care Code Acute Code for Chg Fwd Diagnoses Worsening angina I20.0 Dilation of biliary tract K83.8 Dilated cbd, acquired K83.8 Transaminitis R74.01
--- NOTE | 2025-03-06 11:51 | PM.DCS ---
Discharge Providers Date of Admission: 03/04/25 15:58 Date of Discharge: March 06, 2025 Attending Provider at Admission: Chandra Garcia Attending Provider at Discharge: Alireza Barr MD Primary Care Provider: Delmer Shaver MD Diagnoses at Discharge Discharge Diagnosis 1. Unstable angina: 2. Primary hypertension: 3. Dilated cbd, acquired: 4. Transaminitis: Reason for Visit Reason for Visit: CP N/V SOB Hospital Course Hospital Course This is a 84-year-old female with a past medical history of atrial fibrillation, CAD, history of pacemaker placed, hypertension, hyperlipidemia, subclinical hyperthyroidism who presents to [facility] for chest pain Patient was admitted to [facility] for stable angina, underwent cardiac catheterization, status post PCI to mid LAD with 1 stent, was monitored on Plavix, Xarelto, no recurrent chest pain. Will be discharged on Plavix and 5 mg daily, Xarelto 20 mg in the evening, with close follow-up with cardiology as outpatient. Patient was advised if she were to have any recurrent chest pain to go to emergency room. Patient's hospitalization was complicated by transaminitis, elevated alk phos, no significant hyperbilirubinemia, elevated GGT, no significant lipase elevation - CT scan and ultrasound shows CBD dilatation to 2.5 to 2.8 cm, with intra extrahepatic biliary dilatation, no stones seen, no masses seen - Patient has no abdominal pain, no hyperbilirubinemia, no jaundice -She status post cholecystectomy - She does have an for the last year or so she has been experiencing intermittent epigastric discomfort, associated with nausea and vomiting, different from her chest pain - Discussed with patient that this could be that she is passing biliary stones causing intermittent transaminitis, and abdominal pain -Discussed with her that her risk of acute cholangitis if she has fevers or abdominal pain, or nausea or vomiting this is an emergency she immediately call [phone] -Currently no significant clinical evidence of acute ascending cholangitis, no leukocytosis, afebrile, no significant right upper quadrant tenderness -however cannot rule out biliary stricture or cholangiocarcinoma or ampulla [place] dysfunction - Nonetheless cannot do a MRI here at [facility] as we do not have an capability of monitoring pacemakers in our MRI machine -Thus cannot do an MRCP here at [facility] -I spoke to [facility] BARTHOL[facility], I spoke to their provider Alejandro moore, who recommended to order MRCP and have her follow-up with [facility] - I have spoken to [facility], they do have this capability and I have ordered the MRCP and will have her follow-up with [facility] MRI - [facility] for consideration of ERCP and follow-up MRCP - Patient was advised if she would have any epigastric discomfort, fevers, or nausea or vomiting go to emergency room - She needs to have her primary care provider monitor her LFTs weekly - If any elevation of LFT or any hyperbilirubinemia or fever/abdominal pain/nausea/vomiting she then probably will need to be transferred to [place] for more urgent MRCP or ERCP and GI evaluation - For your chest pain and heart stents placed you are being discharged on Plavix and on Xarelto - If you have any chest pain please go to the emergency room - If you develop bloody or black stools please go to the emergency room - If you have a significant fall, trauma, head trauma please go to emergency room - Please follow-up with cardiology - Please stop ibuprofen use - For your epigastric discomfort, or nausea or vomiting, if you have recurrent pain please immediately go to the emergency room -If you start to become jaundiced or yellow in coloration please immediately go to the emergency room - Your CT scan showed that you have common bile duct dilatation at 2.8 cm - You have evidence of intrahepatic biliary dilatation and extrahepatic biliary dilatation - You will need to have an MRCP, which is an MRI of your liver and biliary tract, but you need to do this at a pacemaker compatible MRI for monitoring - I have ordered an MRCP please complete this within the next few days -This MRCP will be shared with [facility] gastroenterology -If Yue does not reach out to you please call their office - You will need to have your primary care provider monitor your liver function, this will need to be done on a weekly basis, for the next few weeks - Your AST is 49, ALT 119, alkaline phosphatase 205, bilirubin 0.4 - We have to ensure that these numbers are improving - If they start to elevate then you have to come to the emergency room - Ultimately if your MRCP is abnormal, or your liver function elevates, or you develop elevated bilirubin, or you developed epigastric discomfort will need to see Yue to do an ERCP procedure - Please call [facility] tomorrow the number is [phone] call between 7 to 2:30 PM, they will schedule the MRI Physical Exam Const: COMMON NORMALS: no acute distress and patient oriented x3 Resp: COMMON NORMALS: normal respiratory effort, No retractions, No use of accessory muscles and clear to auscultation bilaterally AUSCULTATION: clear to auscultation bilaterally Cardio: COMMON NORMALS: regular rate, regular rhythm, S1 normal heart sound present and S2 normal heart sound present RATE: regular rate RHYTHM: regular rhythm HEART SOUNDS: S1 normal heart sound present and S2 normal heart sound present GI: COMMON NORMALS: Normal to inspection, nondistended, normoactive bowel sounds present and non-tender Extremity: COMMON NORMALS: no calf tenderness and no pedal edema Neuro: COMMON NORMALS: patient oriented x3 Psych: COMMON NORMALS: mental status grossly normal Discharge Data Studies Completed and Pending Completed Studies During Hospitalization Category Date Time Status CT abdomen pelvis wo con [id number] Routine Cat Scan 03/05/25 10:01 Completed XR chest 1V portable [id number] Urgent Exams 03/04/25 13:44 Completed [place] liver [id number] Stat Ultrasound 03/05/25 08:48 Completed Pending at discharge Category Date Time Status [employer] request for service Routine Exams 03/05/25 07:31 Ordered BRETT Profile Rheumatology Stat Lab 03/06/25 09:28 Received Complete Blood Count w/Auto AM LABS Lab 03/07/25 04:00 Ordered Complete Blood Count w/Auto AM LABS Lab 03/08/25 04:00 Ordered Comprehensive Metabolic Panel AM LABS Lab 03/07/25 04:00 Ordered Comprehensive Metabolic Panel AM LABS Lab 03/08/25 04:00 Ordered Platelet Count Q2D Lab 03/08/25 04:00 Ordered Radiology Impressions Chest X-Ray 03/04/25 13:44 Impression: Atherosclerosis and cardiac pacemaker. Liver Ultrasound 03/05/25 08:48 IMPRESSION: 1. Common bile duct is markedly dilated measuring 2.5 cm. Correlation with patient's laboratory value is advised. If there is clinical concern for biliary obstructive process, ERCP or MRCP can be obtained for further evaluation. 2. Hepatic steatosis. Abdomen/Pelvis CT 03/05/25 10:01 IMPRESSION: 1. Intrahepatic and extrahepatic biliary ductal dilatation. No definite pancreatic head mass seen. MRCP for further evaluation is advised. 2. Bladder appears distended. 3. Coronary calcifications. 4. Mild calcified atherosclerotic changes are seen throughout the abdominal aorta. 5. Diffuse diverticulosis is seen. 6. Diffuse colonic stool material. Clinical correlation to exclude constipation is advised. 7. Moderate lumbar spine degenerative changes. 8. Right lower lobe 9 mm nodule (4/9). For both low risk and high risk patients, consider CT Chest at 3 months, PET/CT, or biopsy (Reference: Arcelia). REFERENCES: Arcelia Gurrola, et al. Guidelines for Management of Incidental Pulmonary Nodules Detected on CT Images: From the Fleischner Society 2017. Radiology. 2017;284(1):228-243. Laboratory Results WBC 8.35 10^3/uL (3.29-11.43) 03/06/25 02:24 RBC 3.96 10^6/uL (3.85-5.65) 03/06/25 02:24 Hgb 11.10 g/dL (11.27-16.99) L 03/06/25 02:24 Hct 34.2 % (36-47) L 03/06/25 02:24 MCV 86.4 fl (85-98) 03/06/25 02:24 MCH 28.0 pg (27-33) 03/06/25 02:24 MCHC 32.5 g/dL (30-55) 03/06/25 02:24 RDW 13.2 % (12.1-15.1) 03/06/25 02:24 Plt Count 196 10^3/cmm (157-399) 03/06/25 02:24 MPV 10.1 fL (7.4-10.4) 03/06/25 02:24 Neut % (Auto) 69.9 % 03/06/25 02:24 Lymph % (Auto) 19.3 % 03/06/25 02:24 [place] % (Auto) 9.0 % 03/06/25 02:24 Eos % (Auto) 1.3 % 03/06/25 02:24 Baso % (Auto) 0.4 % 03/06/25 02:24 Neut # (Auto) 5.84 10^3/uL (1.8-7.7) 03/06/25 02:24 Lymph # (Auto) 1.6 10^3/uL (0.8-4.8) 03/06/25 02:24 [place] # (Auto) 0.8 10^3/uL (0.2-0.9) 03/06/25 02:24 Eos # (Auto) 0.1 10^3/uL (0.0-0.8) 03/06/25 02:24 Baso # (Auto) 0.0 10^3/uL (0.0-0.1) 03/06/25 02:24 Nucleated RBC % (auto) 0 % 03/06/25 02:24 Nucleated RBCs # 0.0 /100WBC 03/06/25 02:24 APTT 78.1 SECONDS (23.9-36.7) H 03/05/25 12:31 Sodium 135 mmol/L (136-145) L 03/06/25 02:24 Potassium 4.1 mmol/L (3.5-5.1) 03/06/25 02:24 Chloride 102 mmol/L (98-107) 03/06/25 02:24 Carbon Dioxide 24 mmol/L (22-29) 03/06/25 02:24 Anion Gap 13.1 (5-19) 03/06/25 02:24 BUN 17 mg/dL (8-23) 03/06/25 02:24 Creatinine 0.8 mg/dL (0.5-0.9) 03/06/25 02:24 GFR Calculation Not Reportable 03/06/25 02:24 Glucose 101 mg/dL (65-115) 03/06/25 02:24 Calculated Osmolality 282 mOsm/kg (285-295) L 03/06/25 02:24 Calcium 8.7 mg/dL (8.5-10.5) 03/06/25 02:24 Total Bilirubin 0.4 mg/dL (0.15-1.2) 03/06/25 02:24 Direct Bilirubin 0.16 mg/dL (0.00-0.30) 03/05/25 04:00 Indirect Bilirubin 0.24 03/05/25 04:00 GGT 625 U/L (5-36) H 03/05/25 04:00 AST 49 U/L (0-32) H 03/06/25 02:24 ALT 119 U/L (0-33) H 03/06/25 02:24 Alkaline Phosphatase 205 U/L (35-105) H 03/06/25 02:24 Creatine Kinase 65 U/L (26-192) 03/04/25 20:45 Troponin T Baseline < 6 ng/L (0-10) 03/04/25 14:20 Troponin T 120 Minute < 6.0 ng/L (0-10) 03/04/25 16:53 Delta Troponin T 0 ABS# (0-10) 03/04/25 16:53 Troponin T Hi Sens 6Hr 8.42 ng/L (0-10) 03/04/25 20:45 Troponin T Hi Sens 6Hr Delta 2.16495 ng/L (0-12) 03/04/25 20:45 C-Reactive Protein 8.8 mg/L (0.0-4.9) H 03/05/25 04:00 Total Protein 6.4 g/dL (6.6-8.7) L 03/06/25 02:24 Albumin 3.5 g/dL (3.5-5.2) 03/06/25 02:24 Globulin 2.9 g/dL (1.3-4.6) 03/06/25 02:24 Lipase 50 U/L (13-60) 03/05/25 04:00 Hepatitis A IgM Ab Non-reactive (Nonreactive) 03/04/25 20:45 Hep Bs Antigen Non-reactive (Nonreactive) 03/04/25 20:45 Hep B Core IgM Ab Non-reactive (Nonreactive) 03/04/25 20:45 Hepatitis C Antibody Non-reactive (Nonreactive) 03/04/25 20:45 Vitals Last Vital Signs Temp 97.7 F 03/06/25 08:00 Pulse 77 03/06/25 08:00 Resp 24 H 03/06/25 08:00 BP 133/83 03/06/25 08:00 Pulse Ox 97 03/06/25 08:00 O2 Del Method Room Air 03/06/25 08:00 Discharge Plan Discharge Patient Disposition: Home Condition: Stable Prescriptions: New clopidogrel 75 mg Tablet 75 mg PO DAILY 30 Days Qty: 30 0RF Continued nitroglycerin [Nitrostat] 0.4 mg tablet, sublingual 0.4 mg sublingual Q5M PRN (Reason: Pain) Rx Instructions: do not exceed 3 doses per episode tramadol 50 mg tablet 50 mg PO BID PRN (Reason: Pain) metoprolol succinate 100 mg tablet extended release 24 hr 100 mg PO DAILY Qty: 90 3RF diltiazem HCl 60 mg capsule,extended release 12 hr See Rx Instructions .ROUTE .COMPLEX Qty: 180 3RF Dose Instruction: take 1 capsule BY MOUTH TWICE DAILY Rx Instructions: take 1 capsule BY MOUTH TWICE DAILY Praluent Pen 150 mg/mL pen injector 150 mg SUBCUT Q14D Qty: 2 6RF Xarelto 20 mg tablet 20 mg PO QPM Rx Instructions: must administer with evening meal Discontinued ibuprofen [Advil] 200 mg Tablet 200 mg PO QPM Discharge Order = DC NOW: Discharge Order (Routine); Ordered 03/06/25 Ordered By: Alireza Barr Other Ambulatory Orders: MR MRCP [id number] (Routine) Timeframe: 1 Day Location: Determined by Patient Ordered By: Alireza Barr Referrals: Delmer Shaver MD [Primary Care Provider, Family Practice] Referral Note: Please call for a follow up radha. Roxanne Matthew FNP [Nurse Practitioner, Cardiology] - 7-10 days Referral Note: We have notified your physician's clinic of the need for a follow-up appointment to be scheduled. If you have not heard from them within the next 2 business days, please call them directly. Fortunato Arciniega MD [Referring, Internal Medicine] - 1-3 days Referral Note: cbd 2.8 cm Discharge Diet: Cardiac Patient Instructions: Clopidogrel (By mouth), Coronary Intravascular Stent Placement (DC), Transaminitis (GEN), Chest Pain Stoplight, Opioid Safety, Post Angiogram Home Care Instructions, Patient Portal & Radha Instructions Activity Restrictions/Additional Instructions: - For your chest pain and heart stents placed you are being discharged on Plavix and on Xarelto - If you have any chest pain please go to the emergency room - If you develop bloody or black stools please go to the emergency room - If you have a significant fall, trauma, head trauma please go to emergency room - Please follow-up with cardiology - Please stop ibuprofen use - For your epigastric discomfort, or nausea or vomiting, if you have recurrent pain please immediately go to the emergency room -If you start to become jaundiced or yellow in coloration please immediately go to the emergency room - Your CT scan showed that you have common bile duct dilatation at 2.8 cm - You have evidence of intrahepatic biliary dilatation and extrahepatic biliary dilatation - You will need to have an MRCP, which is an MRI of your liver and biliary tract, but you need to do this at a pacemaker compatible MRI for monitoring - I have ordered an MRCP please complete this within the next few days -This MRCP will be [facility] with [facility] -If [facility]ue BARTHOLOMEW does not reach out to you please call their office - You will need to have your primary care provider monitor your liver function, this will need to be done on a weekly basis, for the next few weeks - Your AST is 49, ALT 119, alkaline phosphatase 205, bilirubin 0.4 - We have to ensure that these numbers are improving - If they start to elevate then you have to come to the emergency room - Ultimately if your MRCP is abnormal, or your liver function elevates, or you develop elevated bilirubin, or you developed epigastric discomfort will need to see Yue BARTHOLOMEW to do an ERCP procedure - Please call [facility] tomorrow the number is [phone] call between 7 to 2:30 PM, they will schedule the MRI Discharge Attestations Time Spent in Discharge Care*: greater than 30 min Quality Metrics Clinical Quality Measures [ Acute Myocardial Infaction { Clinical Trial Participant: No; Contraindication to aspirin: None; Aspirin prescribed; Contraindication to statin: Drug allergy; Contraindication to PCI: None; PCI performed;}. No reported AMI, CVA or VTE this stay] Coding Level of Care Code 82377 Total time (in minutes) for Discharge: 45 Diagnoses Unstable angina I20.0 Primary hypertension I10 Hypertension type: primary hypertension Dilated cbd, acquired K83.8 Transaminitis R74.01
[2025-03-06 12:10] VITALS: BP 141/91; PULSE 90; O2SAT 96
--- NOTE | 2025-03-06 13:29 | PC.NURSE ---
Discharge Note Patient discharged to home via private vehicle accompanied by son. Discharge instructions reviewed with patient and/or warehouse representative. Mobile pharmacy medications and/or prescriptions provided. Belongings/home medications returned.
[2025-03-07 11:35] LABS: COMPLEMENT COMPONENT C3C 149 mg/dL; COMPLEMENT COMPONENT C4C 33 mg/dL
[2025-03-07 14:49] LABS: COMPLEMENT, TOTAL (CH50) >60 U/mL (31-60)
[2025-03-08 03:25] LABS: CENTROMERE B ANTIBODY <1.0 NEG AI (<1.0 NEG); JO-1 ANTIBODY <1.0 NEG AI (<1.0 NEG); RNP ANTIBODY 1.3 POS AI (<1.0 NEG); SCL-70 ANTIBODY <1.0 NEG AI (<1.0 NEG); SS-B <1.0 NEG AI (<1.0 NEG)
[2025-03-09 09:34] LABS: THYROID PEROXIDASE ANTIBODIES 16 IU/mL (<9)
[2025-03-10 11:59] LABS: DNA AB (DS) CRITHIDIA,IFA NEGATIVE (NEGATIVE)
== END 2025-03-06 12:30 | disposition home or self-care (01) ==
LOC: ER 15:10 → CSU 15:58
PROVIDERS: Internal Medicine; Physician Assistant; Admitting Provider Internal Medicine; Emergency Provider Emergency Medicine; PCP Family Medicine; Visit Provider Family Medicine
DX: I25.110 Atherosclerotic heart disease of native coronary artery with unstable angina pectoris (principal); T82.855A Stenosis of coronary artery stent, initial encounter; E78.5 Hyperlipidemia, unspecified; I10 Essential (primary) hypertension; Z87.891 Personal history of nicotine dependence; K83.8 Other specified diseases of biliary tract; R74.01 Elevation of levels of liver transaminase levels; Z79.01 Long term (current) use of anticoagulants; Z95.0 Presence of cardiac pacemaker; E05.80 Other thyrotoxicosis without thyrotoxic crisis or storm; I48.91 Unspecified atrial fibrillation; Z85.038 Personal history of other malignant neoplasm of large intestine; E05.90 Thyrotoxicosis, unspecified without thyrotoxic crisis or storm
CPT/HCPCS: 36415; 71045; 74176; 76705; 80053; 80074; 82247; 82248; 82550; 82977; 83690; 84484; 85025; 85347; 85730; 86140; 86160; 86162; 86235; 86255; 86376; 93005; 93454; 93571; 96365; 99152; 99153; 99285; C1725; C1760; C1769; C1874; C1887; C1894; C9600; G0269; G0378; J1644; J2250; J3010; J3490; J7030; J9999; Q0163; Q9967

== ENCOUNTER 2025-03-11 16:36 | Emergency (ER) | payer MEDICARE, OTHER, SELFPAY ==
[2025-03-11 16:52] VITALS: BP 144/74; PULSE 80; RESP 17; TEMP 36.8; O2SAT 97; BMI 27.4
--- NOTE | 2025-03-11 17:00 | USR_ITS ---
PROCEDURE INFORMATION: Exam: US Duplex Right Lower Extremity Arteries Or Arterial Bypass Grafts Exam date and time: 03/11/2025 6:00 PM Age: 84 years old Clinical indication: Other: Recent cardiac cath; Bruising; Prior surgery; Surgery date: 3-7 days post-operative TECHNIQUE: Imaging protocol: Right Real-time duplex scan of the arteries or arterial bypass grafts of the right lower extremity with 2-D klein scale, color Doppler flow and spectral waveform analysis. Images documented and saved. COMPARISON: CT abdomen pelvis wo con [id number] 03/05/2025 1:24 PM FINDINGS: Right common femoral artery: Patent right common femoral artery. Right superficial femoral artery: No occlusion or significant stenosis. Normal waveform. Right popliteal artery: No occlusion or significant stenosis. Normal waveform. Right calf/foot arteries: No occlusion or significant stenosis in the visualized arteries. Normal waveforms. Dorsalis pedis artery is patent. Right deep veins: Patent right common femoral vein. Right superficial veins: Patent right greater saphenous vein. Lymph nodes: Mild right inguinal lymphadenopathy. Soft tissues: No hematoma or collection. US/[place] [id number] IMPRESSION: 1. Mild right inguinal lymphadenopathy. 2. No obvious pseudoaneurysm or hematoma. 3. Patent right common femoral vessels.
--- NOTE | 2025-03-11 17:42 | W.ED.EXTPRO ---
Documented by User: CHADNANA Holland 03/13/25 15:12 HPI - Extremity Problem General: Chief complaint: Skin/Abscess/Foreign Body Stated complaint: R leg bruising, dr referral Time Seen by Provider: 03/11/25 16:41 Source: patient Mode of arrival: ambulatory Limitations: no limitations History of Present Illness: Patient is a nice 84-year-old female presents to ED today for evaluation of bruising to her right groin. Patient states approximately 6 days ago she underwent cardiac catheterization. She states 3 days following this she began noticing bruising to her right groin that has seemed to gravitate down into her thigh and was concerned. She is not complaining of any significant discomfort. She has no other complaints at this time. She is on anticoagulation. MD Complaint: other (bruising to R groin following cardiac cath-femoral access) Onset (ago): day(s) Location: right and lower extremity (groin) Radiation: none Relieving factors: nothing Exacerbating factors: nothing Associated symptoms: Reports no associated symptoms; Deny chest pain or fever(s) Context: recent surgery/procedure Related Data Home Medications ?Medication ?Instructions ?Recorded ?Confirmed nitroglycerin 0.4 mg sublingual 0.4 mg sublingual Q5M PRN Pain 04/17/23 03/04/25 tablet (Nitrostat) tramadol 50 mg tablet 50 mg PO BID PRN Pain 04/23/23 03/04/25 rivaroxaban 20 mg tablet (Xarelto) 20 mg PO QPM 03/04/25 03/04/25 Previous Rx's ?Medication ?Instructions ?Recorded diltiazem HCl 60 mg See Rx Instructions .Route 10/05/24 capsule,extended release 12 hr .COMPLEX #180 caps metoprolol succinate 100 mg 100 mg PO DAILY #90 tabs 10/05/24 tablet,extended release 24 hr alirocumab 150 mg/mL subcutaneous 150 mg SUBCUT Q14D #2 mL 02/14/25 pen injector (Praluent Pen) clopidogrel 75 mg tablet 75 mg PO DAILY 30 days #30 tabs 03/06/25 Allergies Allergy/AdvReac Type Severity Reaction Status Date / Time Shzkpnm-EWA-PwR Reductase Allergy Mild ADR-Muscle Verified 12/03/24 13:24 Inhibitor Pain codeine Allergy Unknown Unknown Verified 12/03/24 13:24 nitrofurantoin (From Allergy Unknown Unknown Verified 12/03/24 13:24 Macrobid) gabapentin Allergy Double Verified 12/03/24 13:24 Vision Review of Systems Const: Denies: fever(s), chills, body aches, fatigue or malaise Card: Denies: chest pain Resp: Denies: dyspnea Musc: Reports: other (bruising to R groin); Denies: extremity pain, extremity swelling, joint pain or joint swelling Skin/Breast: Reports: other (bruising to R groin) Neuro: Denies: numbness in extremities, weakness in extremities, sensory changes or difficulty walking PFS ED PFSH: Medical History Colon cancer Joint pain Cataract Thyroid nodule Hyperthyroidism Anticoagulation adequate with anticoagulant therapy A-fib Coronary artery disease Hyperlipemia HTN (hypertension) Pacemaker Surgical History Hx of cholecystectomy H/O bilateral hip replacements Hx of hysterectomy Hx of colonoscopy 10 yrs ago History of radiofrequency ablation (RFA) procedure for cardiac arrhythmia Social History Smoking and tobacco/nicotine status: former use of tobacco/nicotine Quit status (tobacco/nicotine): has quit using Year quit tobacco: been 30 plus years Alcohol intake: never Substance/Drug Use: never Physical Exam Const: COMMON NORMALS: no acute distress, average body habitus, patient oriented x3, no limitations, healthy appearing, alert and well nourished GENERAL APPEARANCE: cooperative ORIENTATION/CONSCIOUSNESS: Yes awake, Yes oriented to person, Yes oriented to place and Yes oriented to time Resp: COMMON NORMALS: normal respiratory effort and clear to auscultation bilaterally AUSCULTATION: clear to auscultation bilaterally Cardio: COMMON NORMALS: regular rate and regular rhythm RATE: regular rate RHYTHM: regular rhythm GI: COMMON NORMALS: non-tender, No hepatosplenomegaly present and no masses INSPECTION: Yes normal to inspection (apart from ecchymosis/hematoma R groin) AUSCULTATION: Yes normoactive bowel sounds PALPATION: No Guarding due to palpation present (GI), No Rigid due to palpation and Yes No hepatosplenomegaly present OTHER: healing appearing ecchymosis R groin with probable underlying hematoma : COMMON NORMALS: Yes no CVA tenderness BLADDER/KIDNEY EXAM: Yes no CVA tenderness Back/Pelvis: COMMON NORMALS: no CVA tenderness Extremity: COMMON NORMALS: normal to inspection, full ROM, capillary refill normal, no joint enlargement, no clubbing, cyanosis or edema, no calf tenderness and no pedal edema NARRATIVE EXTREMITY EXAM: see above GENERAL: Yes normal exam except as noted Neuro: COMMON NORMALS: patient oriented x3, moves all extremities, no focal motor deficits, no sensory deficits noted and gait normal SENSORIUM/ORIENTATION: Yes alert, Yes oriented to person, Yes oriented to place and Yes oriented to time Skin: NARRATIVE SKIN EXAM: see above Course ED course: DDx includes hematoma, pseudoaneurysm, active arterial bleed, AV fistula, arterial dissection, arterial occlusion/thrombus, infection. Vitals are stable. Hemoglobin 10.9 compared to 11.1 almost a week ago so stable. US in room now. Care transferred to Yanelis Nunes PA-C just pending official radiology read. ES Vital Signs: Vital signs: Vital Signs Temperature 98.2 F 03/11/25 16:52 Pulse Rate 88 03/11/25 20:35 Respiratory Rate 18 03/11/25 20:35 Blood Pressure 141/110 03/11/25 20:35 Pulse Oximetry 93 03/11/25 20:35 Oxygen Delivery Me thod Room Air 03/11/25 20:35 MDM - Extremity (Nontraumatic) Lab Data 03/11/25 17:40 03/11/25 17:40 Radiology Impressions Arterial/Peripheral Duplex 03/11/25 17:00 IMPRESSION: 1. Mild right inguinal lymphadenopathy. 2. No obvious pseudoaneurysm or hematoma. 3. Patent right common femoral vessels. Laboratory Results WBC 7.53 10^3/uL (3.29-11.43) 03/11/25 17:40 RBC 3.80 10^6/uL (3.85-5.65) L 03/11/25 17:40 Hgb 10.90 g/dL (11.27-16.99) L 03/11/25 17:40 Hct 33.5 % (36-47) L 03/11/25 17:40 MCV 88.2 fl (85-98) 03/11/25 17:40 MCH 28.7 pg (27-33) 03/11/25 17:40 MCHC 32.5 g/dL (30-55) 03/11/25 17:40 RDW 12.9 % (12.1-15.1) 03/11/25 17:40 Plt Count 245 10^3/cmm (157-399) 03/11/25 17:40 MPV 9.5 fL (7.4-10.4) 03/11/25 17:40 Neut % (Auto) 66.8 % 03/11/25 17:40 Lymph % (Auto) 22.0 % 03/11/25 17:40 Latimer % (Auto) 8.8 % 03/11/25 17:40 Eos % (Auto) 1.5 % 03/11/25 17:40 Baso % (Auto) 0.5 % 03/11/25 17:40 Neut # (Auto) 5.03 10^3/uL (1.8-7.7) 03/11/25 17:40 Lymph # (Auto) 1.7 10^3/uL (0.8-4.8) 03/11/25 17:40 Latimer # (Auto) 0.7 10^3/uL (0.2-0.9) 03/11/25 17:40 Eos # (Auto) 0.1 10^3/uL (0.0-0.8) 03/11/25 17:40 Baso # (Auto) 0.0 10^3/uL (0.0-0.1) 03/11/25 17:40 Nucleated RBC % (auto) 0 % 03/11/25 17:40 Nucleated RBCs # 0.0 /100WBC 03/11/25 17:40 Sodium 138 mmol/L (136-145) 03/11/25 17:40 Potassium 4.3 mmol/L (3.5-5.1) 03/11/25 17:40 Chloride 103 mmol/L (98-107) 03/11/25 17:40 Carbon Dioxide 25 mmol/L (22-29) 03/11/25 17:40 Anion Gap 14.3 (5-19) 03/11/25 17:40 BUN 17 mg/dL (8-23) 03/11/25 17:40 Creatinine 0.8 mg/dL (0.5-0.9) 03/11/25 17:40 GFR Calculation Not Reportable 03/11/25 17:40 Glucose 105 mg/dL (65-115) 03/11/25 17:40 Calculated Osmolality 288 mOsm/kg (285-295) 03/11/25 17:40 Calcium 9.0 mg/dL (8.5-10.5) 03/11/25 17:40 Total Bilirubin 0.4 mg/dL (0.15-1.2) 03/11/25 17:40 AST 13 U/L (0-32) 03/11/25 17:40 ALT 26 U/L (0-33) 03/11/25 17:40 Alkaline Phosphatase 115 U/L (35-105) H 03/11/25 17:40 Total Protein 7.2 g/dL (6.6-8.7) 03/11/25 17:40 Albumin 3.8 g/dL (3.5-5.2) 03/11/25 17:40 Globulin 3.4 g/dL (1.3-4.6) 03/11/25 17:40 Discharge Plan Discharge Patient Disposition: Home Clinical Impression: Traumatic ecchymosis of groin Qualifiers: Encounter type: initial encounter Qualified Code(s): S30.1XXA - Contusion of abdominal wall, initial encounter Condition: Stable Prescriptions: No Action nitroglycerin [Nitrostat] 0.4 mg tablet, sublingual 0.4 mg sublingual Q5M PRN (Reason: Pain) Rx Instructions: do not exceed 3 doses per episode tramadol 50 mg tablet 50 mg PO BID PRN (Reason: Pain) metoprolol succinate 100 mg tablet extended release 24 hr 100 mg PO DAILY Qty: 90 3RF diltiazem HCl 60 mg capsule,extended release 12 hr See Rx Instructions .ROUTE .COMPLEX Qty: 180 3RF Dose Instruction: take 1 capsule BY MOUTH TWICE DAILY Rx Instructions: take 1 capsule BY MOUTH TWICE DAILY Praluent Pen 150 mg/mL pen injector 150 mg SUBCUT Q14D Qty: 2 6RF Xarelto 20 mg tablet 20 mg PO QPM Rx Instructions: must administer with evening meal clopidogrel 75 mg Tablet 75 mg PO DAILY 30 Days Qty: 30 0RF Discharge Orders: Discharge ED (Routine); Ordered 03/11/25 Ordered By: Yanelis Nunes Referrals: Delmer Shaver MD [Primary Care Provider, Family Practice] Myles Quintero M.D [Physician, Cardiology] - 4-7 days Discharge Diet: Usual diet Discharge Activity: Resume usual activity Patient Instructions: Left Heart Catheterization (DC), Patient Portal & Radha Instructions Activity Restrictions/Additional Instructions: -- Continue to follow your directions from your recent cardiac catheterization - Return to ED for worsening pain, worsening bruising in this area - Call your inspector and unloader Friday to have it routinely evaluated sometime next week. - Obtain Ensure Luis, drink daily. This helps with healing postsurgery groin extra bruising. As well, obtain Arnica that is a topical for your right groin. Wound care centers use these items to help with healing Print Language: [place] Coding Level of Care Code ED Wheel Cleaner for Chg Fwd Documented by User: CHANDANA Leach 03/11/25 20:56 HPI - Extremity Problem General: Chief complaint: Skin/Abscess/Foreign Body Stated complaint: R leg bruising, dr referral Time Seen by Provider: 03/11/25 16:41 Related Data Home Medications ?Medication ?Instructions ?Recorded ?Confirmed nitroglycerin 0.4 mg sublingual 0.4 mg sublingual Q5M PRN Pain 04/17/23 03/04/25 tablet (Nitrostat) tramadol 50 mg tablet 50 mg PO BID PRN Pain 04/23/23 03/04/25 rivaroxaban 20 mg tablet (Xarelto) 20 mg PO QPM 03/04/25 03/04/25 Previous Rx's ?Medication ?Instructions ?Recorded diltiazem HCl 60 mg See Rx Instructions .Route 10/05/24 capsule,extended release 12 hr .COMPLEX #180 caps metoprolol succinate 100 mg 100 mg PO DAILY #90 tabs 10/05/24 tablet,extended release 24 hr alirocumab 150 mg/mL subcutaneous 150 mg SUBCUT Q14D #2 mL 02/14/25 pen injector (Praluent Pen) clopidogrel 75 mg tablet 75 mg PO DAILY 30 days #30 tabs 03/06/25 Allergies Allergy/AdvReac Type Severity Reaction Status Date / Time Dpfizzk-ZEW-LrR Reductase Allergy Mild ADR-Muscle Verified 12/03/24 13:24 Inhibitor Pain codeine Allergy Unknown Unknown Verified 12/03/24 13:24 nitrofurantoin (From Allergy Unknown Unknown Verified 12/03/24 13:24 Macrobid) gabapentin Allergy Double Verified 12/03/24 13:24 Vision PFSH ED PFSH: Medical History Colon cancer Joint pain Cataract Thyroid nodule Hyperthyroidism Anticoagulation adequate with anticoagulant therapy A-fib Coronary artery disease Hyperlipemia HTN (hypertension) Pacemaker Surgical History Hx of cholecystectomy H/O bilateral hip replacements Hx of hysterectomy Hx of colonoscopy 10 yrs ago History of radiofrequency ablation (RFA) procedure for cardiac arrhythmia Social History Smoking and tobacco/nicotine status: former use of tobacco/nicotine Quit status (tobacco/nicotine): has quit using Year quit tobacco: been 30 plus years Alcohol intake: never Substance/Drug Use: never Course Vital Signs: Vital signs: Vital Signs Temperature 98.2 F 03/11/25 16:52 Pulse Rate 88 03/11/25 20:35 Respiratory Rate 18 03/11/25 20:35 Blood Pressure 141/110 03/11/25 20:35 Pulse Oximetry 93 03/11/25 20:35 Oxygen Delivery Me thod Room Air 03/11/25 20:35 MDM - Extremity (Nontraumatic) Medical Decision Making Patient is a 4-year-old female with cardiac catheterization on Friday, 5 days ago, and Friday noting ecchymosis. Ultrasound to right groin does not note any hematoma or pseudoaneurysm. She will be sent home with the continued precautions and follow-up with cardiology. Recommendations of Ensure Luis, and Arnica [id number] will be given for her ecchymosis. Lab Data 03/11/25 17:40 03/11/25 17:40 Radiology Impressions Arterial/Peripheral Duplex 03/11/25 17:00 IMPRESSION: 1. Mild right inguinal lymphadenopathy. 2. No obvious pseudoaneurysm or hematoma. 3. Patent right common femoral vessels. Laboratory Results WBC 7.53 10^3/uL (3.29-11.43) 03/11/25 17:40 RBC 3.80 10^6/uL (3.85-5.65) L 03/11/25 17:40 Hgb 10.90 g/dL (11.27-16.99) L 03/11/25 17:40 Hct 33.5 % (36-47) L 03/11/25 17:40 MCV 88.2 fl (85-98) 03/11/25 17:40 MCH 28.7 pg (27-33) 03/11/25 17:40 MCHC 32.5 g/dL (30-55) 03/11/25 17:40 RDW 12.9 % (12.1-15.1) 03/11/25 17:40 Plt Count 245 10^3/cmm (157-399) 03/11/25 17:40 MPV 9.5 fL (7.4-10.4) 03/11/25 17:40 Neut % (Auto) 66.8 % 03/11/25 17:40 Lymph % (Auto) 22.0 % 03/11/25 17:40 Latimer % (Auto) 8.8 % 03/11/25 17:40 Eos % (Auto) 1.5 % 03/11/25 17:40 Baso % (Auto) 0.5 % 03/11/25 17:40 Neut # (Auto) 5.03 10^3/uL (1.8-7.7) 03/11/25 17:40 Lymph # (Auto) 1.7 10^3/uL (0.8-4.8) 03/11/25 17:40 Latimer # (Auto) 0.7 10^3/uL (0.2-0.9) 03/11/25 17:40 Eos # (Auto) 0.1 10^3/uL (0.0-0.8) 03/11/25 17:40 Baso # (Auto) 0.0 10^3/uL (0.0-0.1) 03/11/25 17:40 Nucleated RBC % (auto) 0 % 03/11/25 17:40 Nucleated RBCs # 0.0 /100WBC 03/11/25 17:40 Sodium 138 mmol/L (136-145) 03/11/25 17:40 Potassium 4.3 mmol/L (3.5-5.1) 03/11/25 17:40 Chloride 103 mmol/L (98-107) 03/11/25 17:40 Carbon Dioxide 25 mmol/L (22-29) 03/11/25 17:40 Anion Gap 14.3 (5-19) 03/11/25 17:40 BUN 17 mg/dL (8-23) 03/11/25 17:40 Creatinine 0.8 mg/dL (0.5-0.9) 03/11/25 17:40 GFR Calculation Not Reportable 03/11/25 17:40 Glucose 105 mg/dL (65-115) 03/11/25 17:40 Calculated Osmolality 288 mOsm/kg (285-295) 03/11/25 17:40 Calcium 9.0 mg/dL (8.5-10.5) 03/11/25 17:40 Total Bilirubin 0.4 mg/dL (0.15-1.2) 03/11/25 17:40 AST 13 U/L (0-32) 03/11/25 17:40 ALT 26 U/L (0-33) 03/11/25 17:40 Alkaline Phosphatase 115 U/L (35-105) H 03/11/25 17:40 Total Protein 7.2 g/dL (6.6-8.7) 03/11/25 17:40 Albumin 3.8 g/dL (3.5-5.2) 03/11/25 17:40 Globulin 3.4 g/dL (1.3-4.6) 03/11/25 17:40 All radiology interpretation(s) finalized by discharge Discharge Plan Discharge Patient Disposition: Home Clinical Impression: Traumatic ecchymosis of groin Qualifiers: Encounter type: initial encounter Qualified Code(s): S30.1XXA - Contusion of abdominal wall, initial encounter Condition: Stable Prescriptions: No Action nitroglycerin [Nitrostat] 0.4 mg tablet, sublingual 0.4 mg sublingual Q5M PRN (Reason: Pain) Rx Instructions: do not exceed 3 doses per episode tramadol 50 mg tablet 50 mg PO BID PRN (Reason: Pain) metoprolol succinate 100 mg tablet extended release 24 hr 100 mg PO DAILY Qty: 90 3RF diltiazem HCl 60 mg capsule,extended release 12 hr See Rx Instructions .ROUTE .COMPLEX Qty: 180 3RF Dose Instruction: take 1 capsule BY MOUTH TWICE DAILY Rx Instructions: take 1 capsule BY MOUTH TWICE DAILY Praluent Pen 150 mg/mL pen injector 150 mg SUBCUT Q14D Qty: 2 6RF Xarelto 20 mg tablet 20 mg PO QPM Rx Instructions: must administer with evening meal clopidogrel 75 mg Tablet 75 mg PO DAILY 30 Days Qty: 30 0RF Discharge Orders: Discharge ED (Routine); Ordered 03/11/25 Ordered By: Yanelis Nunes Referrals: Delmer Shaver MD [Primary Care Provider, Family Practice] Myles Quintero M.D [Physician, Cardiology] - 4-7 days Discharge Diet: Usual diet Discharge Activity: Resume usual activity Patient Instructions: Left Heart Catheterization (DC), Patient Portal & Radha Instructions Activity Restrictions/Additional Instructions: -- Continue to follow your directions from your recent cardiac catheterization - Return to ED for worsening pain, worsening bruising in this area - Call your inspector and unloader Friday to have it routinely evaluated sometime next week. - Obtain Ensure Luis, drink daily. This helps with healing postsurgery groin extra bruising. As well, obtain Arnica that is a topical for your right groin. Wound care centers use these items to help with healing Print Language: [place] Coding Level of Care Code ED Wheel Cleaner for Lincoln Cooper
[2025-03-11 17:47] LABS: Hematocrit 33.5 % (36-47); Hemoglobin 10.90 g/dL (11.27-16.99); Mean Corpuscular HGB Conc 32.5 g/dL (30-55); Mean Corpuscular Hemoglobin 28.7 pg (27-33); Mean Corpuscular Volume 88.2 fl (85-98); Nucleated Red Blood Cells % 0 %; Platelet Count 245 10^3/cmm (157-399); Red Blood Count 3.80 10^6/uL (3.85-5.65); White Blood Count 7.53 10^3/uL (3.29-11.43)
[2025-03-11 18:06] LABS: Alanine Aminotransferase 26 U/L (0-33); Albumin Level 3.8 g/dL (3.5-5.2); Alkaline Phosphatase 115 U/L (35-105); Anion Gap 14.3 (5-19); Aspartate Amino Transferase 13 U/L (0-32); Blood Urea Nitrogen 17 mg/dL (8-23); Calcium 9.0 mg/dL (8.5-10.5); Carbon Dioxide 25 mmol/L (22-29); Chloride 103 mmol/L (98-107); Creatinine Clr Calc Pharmacy 49.2220; Globulin 3.4 g/dL (1.3-4.6); Glucose 105 mg/dL (65-115); Osmolality Calculated 288 mOsm/kg (285-295); Potassium 4.3 mmol/L (3.5-5.1); Sodium 138 mmol/L (136-145); Total Protein 7.2 g/dL (6.6-8.7)
[2025-03-11 20:35] VITALS: BP 141/110; PULSE 88; RESP 18; O2SAT 93
== END 2025-03-11 21:09 | disposition home or self-care (01) ==
PROVIDERS: Emergency Provider Physician Assistant; PCP Family Medicine
DX: S30.1XXA Contusion of abdominal wall, initial encounter (principal); X58.XXXA Exposure to other specified factors, initial encounter; I25.10 Atherosclerotic heart disease of native coronary artery without angina pectoris; E78.5 Hyperlipidemia, unspecified; I10 Essential (primary) hypertension; Z95.0 Presence of cardiac pacemaker; Z87.891 Personal history of nicotine dependence
CPT/HCPCS: 36415; 80053; 85025; 93926; 99284

== ENCOUNTER → 2025-03-17 13:47 | Outpatient (BNVA) | payer MEDICARE, OTHER, SELFPAY | PROVIDERS: PCP Family Medicine; Visit Provider Internal Medicine | DX: I25.10 Atherosclerotic heart disease of native coronary artery without angina pectoris (principal); I48.0 Paroxysmal atrial fibrillation; I10 Essential (primary) hypertension; Z95.0 Presence of cardiac pacemaker; Z87.891 Personal history of nicotine dependence | CPT/HCPCS: 99214 ==

== ENCOUNTER 2025-03-24 09:13 | Emergency (ER) | payer MEDICARE, OTHER, SELFPAY ==
[2025-03-24 09:21] VITALS: BP 151/64; PULSE 90; RESP 16; TEMP 36.9; O2SAT 97; BMI 27.4
--- OUTSIDE RECORDS SUMMARY | 2025-03-24 09:23 | XMS_ITS | Encounter Summary ---
Author Organization [facility] Address 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 (Primary Dx); Elevated liver enzymes Social History Tobacco Use Types Packs/Day Years Used Date Smoking Tobacco: Never Assessed Comments Unknown Sex and Gender Information Value Date Recorded Sex Assigned at Not on file Legal Sex Female 9:09 AM CDT Gender Identity Not on file Sexual Orientation Not on file documented as of this encounter Plan of Treatment Upcoming Encounters Date Type Department Care Team (Late st Contact Info) Description 03/29/2025 7:30 AM CDT Appointment [facility] MRI [address] [place] [phone] Delmer Shaver MD [address] [place] [phone] Scheduled Orders Name Type Priority Associated Diagnoses Orde r Schedule MRI MRCP W AND WO CONTRAST Imaging Routine 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
--- OUTSIDE RECORDS SUMMARY | 2025-03-24 09:23 | XMS_ITS | Clinical Summary ---
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 (Primary Dx); Elevated liver enzymes 03/16/2025 [facility] [address] [facility] [address] [place] [address] Delmer Shaver MD Dilation of common bile duct (Primary Dx); Elevated liver enzymes from Last 3 Months Social History Tobacco Use Types Packs/Day Years Used Date Smoking Tobacco: Never Assessed Comments Unknown Sex and Gender Information Value Date Recorded Sex Assigned at Not on file Legal Sex Female 9:09 AM CDT Gender Identity Not on file Sexual Orientation Not on file Plan of Treatment Upcoming Encounters Date Type Department Care Team (Late st Contact Info) Description 03/29/2025 7:30 AM CDT Appointment [facility] MRI [address] [place] [address] Delmer Shaver MD [address] [place] [address] Health Maintenance Due Date Last Done Comments DTAP/TDAP/TD VACCINES (1 - Tdap) 1959 PNEUMOCOCCAL VACCINE 50+ YEARS (1 of 1 - PCV) 07/04/18 91 ZOSTER VACCINE (1 of 2) 1990 OSTEOPOROSIS SCREENING 2005 RSV VACCINE (60+ or ) (1 - 1-dose 75+ series) 2015 INFLUENZA VACCINE (#1) 2025 Medical Devices Implanted Type Area Records Management Specialist Device Identifier Shelf Expiration Date Model / Serial / Lot Lead-05/16/2022 Medtronic [id number] Implanted:05/16 (Quantity not on file) Lead [employer] 5076-45 / [id number] / Lead-05/16/2022 Medtronic [id number] Implanted:05/16 (Quantity not on file) Lead [employer] 5076-52 / [id number] / Pacemaker-05/16 Medtronic [id number] Implanted:05/16 (Quantity not on file) Pacemaker [employer] [id number] / [id number] / Insurance MEDICARE PART A AND B [employer]
--- NOTE | 2025-03-24 09:42 | CT_ITS ---
WS: [id number] CT ABDOMEN PELVIS TECHNIQUE: Noncontrast CT of the abdomen and pelvis with coronal and sagittal reformatted images. CLINICAL INFORMATION: Gross hematuria COMPARISON: 03/05/2025 DLP: 548.[address] scans at [facility] use at least one of these dose optimization techniques: automated exposure control; mA and/or kV adjustment per patient size (includes targeted exams where dose is matched to clinical indication); or iterative reconstruction. FINDINGS: Adrenal glands are normal. No hydronephrosis in either kidney. Marked urinary distention of the bladder. Recommend correlation for bladder outlet obstruction or incomplete emptying Few sigmoid diverticuli. Advancement spondylitic changes lumbar spine. Bilateral THAs degraded images in the pelvis. Prior hysterectomy. Stable 9 mm nodule RIGHT lower lobe. Stable RIGHT hepatic cyst. Unchanged intra and extrahepatic biliary ductal dilatation. Recommend follow-up MRCP or ERCP. Fatty atrophy of the pancreas. Coronary calcification. No visualized pancreatic head mass or lesion. Normal noncontrast spleen. Small esophageal hiatal hernia. CT/CT kidney stone [id number] IMPRESSION: 1. No hydronephrosis in either kidney. No obstructing renal or ureteral calcul i. 2. Marked distention of the urinary bladder. Recommend correlation for bladder outlet obstruction or incomplete bladder emptying. 3. No other significant changes compared to previous. 4. Marked intra and extrahepatic biliary ductal dilatation. Recommend follow-u p MRCP or ERCP. The gallbladder appears 5. Small esophageal hiatal hernia. 6. Stable 9 mm nodule RIGHT lower lobe. Absent.
[2025-03-24 09:47] LABS: Glucose Urine UA Negative (Normal); Hematocrit 34.2 % (36-47); Hemoglobin 10.70 g/dL (11.27-16.99); Mean Corpuscular HGB Conc 31.3 g/dL (30-55); Mean Corpuscular Hemoglobin 27.9 pg (27-33); Mean Corpuscular Volume 89.1 fl (85-98); Nitrate Urine Negative (Negative); Nucleated Red Blood Cells % 0 %; Platelet Count 333 10^3/cmm (157-399); Red Blood Count 3.84 10^6/uL (3.85-5.65); Specific Gravity, Urine 1.014 (1.005-1.030); White Blood Count 7.50 10^3/uL (3.29-11.43)
--- NOTE | 2025-03-24 09:47 | W.ED.FEMALGU ---
HPI - Female Genitourinary General: Chief complaint: Urogenital-Female Stated complaint: Passing Blood in urain Time Seen by Provider: 03/24/25 09:20 History of Present Illness: 84-year-old female presents emergency room with complaints of ginger hematuria. She has had blood in her urine for the last 4 days. She was seen by her primary care doctor and started on Bactrim pending results of a culture. She is on Plavix and Xarelto. She has had increasing gross hematuria overnight to this morning where she felt it was frankly bloody. She denies any flank pain no fever sweats or chills no dysuria urgency or frequency. Associated symptoms: Deny abdominal pain Related Data Home Medications ?Medication ?Instructions ?Recorded ?Confirmed nitroglycerin 0.4 mg sublingual 0.4 mg sublingual Q5M PRN Pain 04/17/23 03/24/25 tablet (Nitrostat) tramadol 50 mg tablet 50 mg PO BID PRN Pain 04/23/23 03/24/25 rivaroxaban 20 mg tablet (Xarelto) 20 mg PO QPM 03/04/25 03/24/25 diltiazem HCl 60 mg 60 mg PO BID 03/24/25 03/24/25 capsule,extended release 12 hr sulfamethoxazole 800 1 tab PO BID 03/24/25 03/24/25 mg-trimethoprim 160 mg tablet Previous Rx's ?Medication ?Instructions ?Recorded metoprolol succinate 100 mg 100 mg PO DAILY #90 tabs 10/05/24 tablet,extended release 24 hr alirocumab 150 mg/mL subcutaneous 150 mg SUBCUT Q14D #2 mL 02/14/25 pen injector (Praluent Pen) clopidogrel 75 mg tablet 75 mg PO DAILY 30 days #30 tabs 03/06/25 Allergies Allergy/AdvReac Type Severity Reaction Status Date / Time [id number] Reductase Allergy Mild ADR-Muscle Verified 03/17/25 13:56 Inhibitor Pain codeine Allergy Unknown Unknown Verified 03/17/25 13:56 nitrofurantoin (From Allergy Unknown Unknown Verified 03/17/25 13:56 Macrobid) gabapentin Allergy Double Verified 03/17/25 13:56 Vision Review of Systems Const: Denies: fever(s) or chills Card: Denies: chest pain Resp: Denies: dyspnea GI: Denies: abdominal pain : Denies: dysuria, urinary frequency or urinary urgency Musc: Denies: neck pain or back pain Skin/Breast: Denies: rash PFSH ED PFSH: Medical History Colon cancer Joint pain Cataract Thyroid nodule Hyperthyroidism Anticoagulation adequate with anticoagulant therapy A-fib Coronary artery disease Hyperlipemia HTN (hypertension) Pacemaker Surgical History Hx of cholecystectomy H/O bilateral hip replacements Hx of hysterectomy Hx of colonoscopy 10 yrs ago History of radiofrequency ablation (RFA) procedure for cardiac arrhythmia Social History Smoking and tobacco/nicotine status: former use of tobacco/nicotine Quit status (tobacco/nicotine): has quit using Year quit tobacco: been 30 plus years Alcohol intake: never Substance/Drug Use: never Physical Exam Const: COMMON NORMALS: no acute distress GENERAL APPEARANCE: cooperative and comfortable ORIENTATION/CONSCIOUSNESS: Yes awake, Yes oriented to person, Yes oriented to place and Yes oriented to time HENMT: COMMON NORMALS: normocephalic, atraumatic and hearing grossly normal bilaterally HEAD & SCALP: normocephalic and atraumatic Resp: COMMON NORMALS: normal respiratory effort, No retractions, No use of accessory muscles and clear to auscultation bilaterally AUSCULTATION: clear to auscultation bilaterally Cardio: COMMON NORMALS: regular rate, regular rhythm and No murmurs present (Cardio) RATE: regular rate RHYTHM: regular rhythm GI: COMMON NORMALS: Soft to palpation and No hepatosplenomegaly present AUSCULTATION: Yes normoactive bowel sounds PALPATION: Yes Soft to palpation, No Tenderness to palpation present (GI), No Guarding due to palpation present (GI) and Yes No hepatosplenomegaly present Extremity: COMMON NORMALS: normal to inspection, capillary refill normal, no clubbing, cyanosis or edema, no calf tenderness and no pedal edema Neuro: SENSORIUM/ORIENTATION: Yes oriented to person, Yes oriented to place and Yes oriented to time Skin: COMMON NORMALS: no rashes or lesions noted GENERAL SKIN EXAM: no rashes or lesions noted Course Vital Signs: Vital signs: Vital Signs Temperature 98.4 F 03/24/25 09:21 Pulse Rate 63 03/24/25 12:55 Respiratory Rate 16 03/24/25 09:21 Blood Pressure 125/58 03/24/25 12:55 Pulse Oximetry 99 03/24/25 12:55 Oxygen Delivery Me thod Room Air 03/24/25 11:42 MDM - Female Medical Decision Making Urinary retention on CT and bladder scan. Centeno placed ginger hematuria noted. We irrigated the bladder till clear and has not had any further hematuria. No leukocytosis hemoglobin 10.7. No signs of cystitis on UA at this time. Culture urine recommend that she hold anticoagulant for now. Should follow-up with her primary care doctor within a week. Recommend holding Bactrim as well. Medical Records I reviewed the patient's medical records. Lab Data I reviewed the patient's lab results. 03/24/25 09:36 03/24/25 09:36 Radiology Impressions Abdomen/Pelvis CT 03/24/25 09:42 IMPRESSION: 1. No hydronephrosis in either kidney. No obstructing renal or ureteral calculi. 2. Marked distention of the urinary bladder. Recommend correlation for bladder outlet obstruction or incomplete bladder emptying. 3. No other significant changes compared to previous. 4. Marked intra and extrahepatic biliary ductal dilatation. Recommend follow-up MRCP or ERCP. The gallbladder appears 5. Small esophageal hiatal hernia. 6. Stable 9 mm nodule RIGHT lower lobe. Absent. Laboratory Results WBC 7.50 10^3/uL (3.29-11.43) 03/24/25 09:36 RBC 3.84 10^6/uL (3.85-5.65) L 03/24/25 09:36 Hgb 10.70 g/dL (11.27-16.99) L 03/24/25 09:36 Hct 34.2 % (36-47) L 03/24/25 09:36 MCV 89.1 fl (85-98) 03/24/25 09:36 MCH 27.9 pg (27-33) 03/24/25 09:36 MCHC 31.3 g/dL (30-55) 03/24/25 09:36 RDW 12.9 % (12.1-15.1) 03/24/25 09:36 Plt Count 333 10^3/cmm (157-399) 03/24/25 09:36 MPV 9.7 fL (7.4-10.4) 03/24/25 09:36 Neut % (Auto) 71.2 % 03/24/25 09:36 Lymph % (Auto) 19.5 % 03/24/25 09:36 Meeker % (Auto) 7.3 % 03/24/25 09:36 Eos % (Auto) 0.9 % 03/24/25 09:36 Baso % (Auto) 0.7 % 03/24/25 09:36 Neut # (Auto) 5.34 10^3/uL (1.8-7.7) 03/24/25 09:36 Lymph # (Auto) 1.5 10^3/uL (0.8-4.8) 03/24/25 09:36 [place]eker # (Auto) 0.6 10^3/uL (0.2-0.9) 03/24/25 09:36 Eos # (Auto) 0.1 10^3/uL (0.0-0.8) 03/24/25 09:36 Baso # (Auto) 0.1 10^3/uL (0.0-0.1) 03/24/25 09:36 Nucleated RBC % (auto) 0 % 03/24/25 09:36 Nucleated RBCs # 0.0 /100WBC 03/24/25 09:36 Sodium 137 mmol/L (136-145) 03/24/25 09:36 Potassium 4.3 mmol/L (3.5-5.1) 03/24/25 09:36 Chloride 102 mmol/L (98-107) 03/24/25 09:36 Carbon Dioxide 21 mmol/L (22-29) L 03/24/25 09:36 Anion Gap 18.3 (5-19) 03/24/25 09:36 BUN 16 mg/dL (8-23) 03/24/25 09:36 Creatinine 1.2 mg/dL (0.5-0.9) H 03/24/25 09:36 GFR Calculation Not Reportable 03/24/25 09:36 Glucose 111 mg/dL (65-115) 03/24/25 09:36 Calculated Osmolality 286 mOsm/kg (285-295) 03/24/25 09:36 Calcium 8.9 mg/dL (8.5-10.5) 03/24/25 09:36 Total Bilirubin 0.3 mg/dL (0.15-1.2) 03/24/25 09:36 AST 18 U/L (0-32) 03/24/25 09:36 ALT 11 U/L (0-33) 03/24/25 09:36 Alkaline Phosphatase 84 U/L (35-105) 03/24/25 09:36 Total Protein 7.5 g/dL (6.6-8.7) 03/24/25 09:36 Albumin 3.9 g/dL (3.5-5.2) 03/24/25 09:36 Globulin 3.6 g/dL (1.3-4.6) 03/24/25 09:36 Urine Color Loving (Yellow) A 03/24/25 09:36 Urine Appearance Turbid (CLEAR) A 03/24/25 09:36 Urine pH 6.0 (5-7) 03/24/25 09:36 Ur Specific Iraan 1.014 (1.005-1.030) 03/24/25 09:36 Urine Protein 2+ (Negative) A 03/24/25 09:36 Urine Glucose (UA) Negative (Normal) 03/24/25 09:36 Urine Ketones Negative (Negative) 03/24/25 09:36 Urine Blood 3+ (Negative) A 03/24/25 09:36 Urine Nitrate Negative (Negative) 03/24/25 09:36 Urine Bilirubin Negative (Negative) 03/24/25 09:36 Urine Urobilinogen 1.0 mg/dL (Negative) 03/24/25 09:36 Ur Leukocyte Esterase 1+ (Negative) A 03/24/25 09:36 Urine RBC >100 /hpf (0-2) H 03/24/25 09:36 Urine WBC 6-10 /hpf (0-5) 03/24/25 09:36 Ur Squamous Epith Cells 0-5 /hpf (0-5) 03/24/25 09:36 Amorphous Sediment Not Reportable 03/24/25 09:36 Urine Bacteria None seen /hpf (NONE) 03/24/25 09:36 Hyaline Casts 0.40 /lpf 03/24/25 09:36 All radiology interpretation(s) finalized by discharge Discharge Plan Discharge Patient Disposition: Home Clinical Impression: Hematuria, Urinary (tract) obstruction, PARKER (acute kidney injury) Condition: Stable Prescriptions: No Action nitroglycerin [Nitrostat] 0.4 mg tablet, sublingual 0.4 mg sublingual Q5M PRN (Reason: Pain) Rx Instructions: do not exceed 3 doses per episode tramadol 50 mg tablet 50 mg PO BID PRN (Reason: Pain) metoprolol succinate 100 mg tablet extended release 24 hr 100 mg PO DAILY Qty: 90 3RF Praluent Pen 150 mg/mL pen injector 150 mg SUBCUT Q14D Qty: 2 6RF Rx Instructions: 1st and 15th Xarelto 20 mg tablet 20 mg PO QPM Rx Instructions: must administer with evening meal clopidogrel 75 mg Tablet 75 mg PO DAILY 30 Days Qty: 30 0RF sulfamethoxazole-trimethoprim 800-160 mg tablet 1 tab PO BID diltiazem HCl 60 mg capsule,extended release 12 hr 60 mg PO BID Discharge Orders: Discharge ED (Routine); Ordered 03/24/25 Ordered By: Italo Queen Referrals: Delmer Shaver MD [Primary Care Provider, Family Practice] Discharge Diet: Usual diet Discharge Activity: Resume usual activity Patient Instructions: Opioid Safety, Pain Management, Patient Portal & Radha Instructions Activity Restrictions/Additional Instructions: Thank you for choosing [facility] for your healthcare needs today. It is very important that you follow up as instructed or that you return to the Emergency Department should you have concerns or if your condition changes or worsens in any way. Emergency department visits are focused on emergent conditions, in some cases you may require further evaluation on an outpatient basis. You were seen in the emergency room work utilizing urine. Scans did not identify any masses in the ureter bladder or kidneys however there was significant amount of retained urine and this was relieved by placing a Centeno catheter. Recommend you hold your Xarelto. Case management will make arrangements for you to see a urologist. (Please note that included in your discharge packet is information concerning opioid safety and pain management. This information is given to all patients were discharged from the ER regardless of their discharge diagnosis or the medicines they usually take or are prescribed.) Print Language: Belarusian Coding Level of Care Code ED [employer] Language [employer] for [employer]
[2025-03-24 09:53] LABS: Add Urine Microscopic? YES
--- NOTE | 2025-03-24 09:55 | PC.PHAR ---
Pt has rx for Methimazole 5mg-daily 02/08/25 30ds and Isosorbide Mononitrate 30mg daily 02/15/25 30ds-she states she is no longer taking either of these medications.
[2025-03-24 10:09] LABS: Alanine Aminotransferase 11 U/L (0-33); Albumin Level 3.9 g/dL (3.5-5.2); Alkaline Phosphatase 84 U/L (35-105); Blood Urea Nitrogen 16 mg/dL (8-23); Calcium 8.9 mg/dL (8.5-10.5); Carbon Dioxide 21 mmol/L (22-29); Chloride 102 mmol/L (98-107); Creatinine Clr Calc Pharmacy 32.8147; Globulin 3.6 g/dL (1.3-4.6); Glucose 111 mg/dL (65-115); Osmolality Calculated 286 mOsm/kg (285-295); Sodium 137 mmol/L (136-145); Total Protein 7.5 g/dL (6.6-8.7)
[2025-03-24 10:11] LABS: Anion Gap 18.3 (5-19); Aspartate Amino Transferase 18 U/L (0-32); Potassium 4.3 mmol/L (3.5-5.1)
[2025-03-24 10:27] LABS: UA Slide Review UA Slide Review Perf
[2025-03-24 11:42] VITALS: BP 123/55; PULSE 62; O2SAT 97
[2025-03-24 12:55] VITALS: BP 125/58; PULSE 63; O2SAT 99
--- NOTE | 2025-03-25 08:27 | DCPLANNER ---
faxed urology referral packet to [email or web address]. images pushed.
== END 2025-03-24 12:55 | disposition home or self-care (01) ==
PROVIDERS: Emergency Provider Family Medicine; PCP Family Medicine
DX: N13.9 Obstructive and reflux uropathy, unspecified (principal); R31.9 Hematuria, unspecified; N17.9 Acute kidney failure, unspecified; Z79.02 Long term (current) use of antithrombotics/antiplatelets; Z87.891 Personal history of nicotine dependence; Z95.0 Presence of cardiac pacemaker; I25.10 Atherosclerotic heart disease of native coronary artery without angina pectoris; E78.5 Hyperlipidemia, unspecified; Z85.038 Personal history of other malignant neoplasm of large intestine; I10 Essential (primary) hypertension
CPT/HCPCS: 36415; 51702; 74176; 80053; 81001; 85025; 87086; 99284

== ENCOUNTER → 2025-03-28 15:22 | Outpatient (BNVA) | payer MEDICARE, OTHER, SELFPAY | PROVIDERS: PCP Family Medicine; Visit Provider Nurse Practitioner Family | DX: L81.4 Other melanin hyperpigmentation (principal); L57.8 Other skin changes due to chronic exposure to nonionizing radiation; D22.39 Melanocytic nevi of other parts of face; Z08 Encounter for follow-up examination after completed treatment for malignant neoplasm; Z85.820 Personal history of malignant melanoma of skin; B07.8 Other viral warts; R23.8 Other skin changes; R20.8 Other disturbances of skin sensation; L53.8 Other specified erythematous conditions; R58 Hemorrhage, not elsewhere classified; Z78.9 Other specified health status; L29.89 Other pruritus; L57.0 Actinic keratosis; L82.0 Inflamed seborrheic keratosis | CPT/HCPCS: 17000; 17110; 99213 ==

== ENCOUNTER → 2025-04-05 13:28 | Outpatient (BNVA) | payer MEDICARE, OTHER, SELFPAY | PROVIDERS: PCP Family Medicine; Visit Provider Internal Medicine | DX: I25.10 Atherosclerotic heart disease of native coronary artery without angina pectoris (principal); I48.0 Paroxysmal atrial fibrillation; E78.5 Hyperlipidemia, unspecified; I10 Essential (primary) hypertension; Z95.0 Presence of cardiac pacemaker; R07.9 Chest pain, unspecified; Z79.01 Long term (current) use of anticoagulants | CPT/HCPCS: 99214 ==

== ENCOUNTER 2025-04-25 08:09 | Outpatient (CLI) | payer MEDICARE, OTHER, SELFPAY ==
[2025-04-25 09:58] LABS: Free T4 Free Thyroxine 1.10 ng/dL (0.82-1.77); Thyroid Stimulating Hormone 0.47 uIU/mL (0.27-4.20)
== END 2025-04-25 08:10 | disposition home or self-care (01) ==
LOC: LAB 08:11
PROVIDERS: PCP Family Medicine; Visit Provider Internal Medicine
DX: I48.0 Paroxysmal atrial fibrillation (principal); E05.90 Thyrotoxicosis, unspecified without thyrotoxic crisis or storm
CPT/HCPCS: 36415; 84439; 84443; 84480

== ENCOUNTER → 2025-04-28 13:52 | Outpatient (BNVA) | payer MEDICARE, OTHER, SELFPAY | PROVIDERS: PCP Family Medicine; Visit Provider Nurse Practitioner Family | DX: L57.8 Other skin changes due to chronic exposure to nonionizing radiation (principal); Z08 Encounter for follow-up examination after completed treatment for malignant neoplasm; Z85.820 Personal history of malignant melanoma of skin; B07.8 Other viral warts; L82.0 Inflamed seborrheic keratosis; L53.8 Other specified erythematous conditions; R20.8 Other disturbances of skin sensation; L57.0 Actinic keratosis | CPT/HCPCS: 17000; 17110; 99213 ==

== ENCOUNTER 2025-06-16 07:59 | Outpatient (CLI) | payer MEDICARE, OTHER, SELFPAY ==
[2025-06-16 08:55] LABS: Hematocrit 34.5 % (36-47); Hemoglobin 10.80 g/dL (11.27-16.99); Mean Corpuscular HGB Conc 31.3 g/dL (30-55); Mean Corpuscular Hemoglobin 25.9 pg (27-33); Mean Corpuscular Volume 82.7 fl (85-98); Nucleated Red Blood Cells % 0 %; Platelet Count 309 10^3/cmm (157-399); Red Blood Count 4.17 10^6/uL (3.85-5.65); White Blood Count 6.17 10^3/uL (3.29-11.43)
[2025-06-16 09:31] LABS: Carcinoembryonic Antigen 1.2 ng/mL (0.0-4.7)
[2025-06-16 09:42] LABS: Alanine Aminotransferase 8 U/L (0-33); Albumin Level 3.9 g/dL (3.5-5.2); Alkaline Phosphatase 69 U/L (35-105); Anion Gap 14.7 (5-19); Aspartate Amino Transferase 12 U/L (0-32); Blood Urea Nitrogen 13 mg/dL (8-23); Calcium 9.0 mg/dL (8.5-10.5); Carbon Dioxide 26 mmol/L (22-29); Chloride 105 mmol/L (98-107); Globulin 2.8 g/dL (1.3-4.6); Glucose 108 mg/dL (65-115); Osmolality Calculated 293 mOsm/kg (285-295); Potassium 4.7 mmol/L (3.5-5.1); Sodium 141 mmol/L (136-145); Total Protein 6.7 g/dL (6.6-8.7)
== END 2025-06-16 08:00 | disposition home or self-care (01) ==
PROVIDERS: PCP Family Medicine
DX: R79.89 Other specified abnormal findings of blood chemistry (principal); R93.3 Abnormal findings on diagnostic imaging of other parts of digestive tract; K83.8 Other specified diseases of biliary tract; Z85.00 Personal history of malignant neoplasm of unspecified digestive organ
CPT/HCPCS: 36415; 80053; 82378; 85025; 86140

== ENCOUNTER 2025-06-27 15:55 | Outpatient (CLI) | payer MEDICARE, OTHER, SELFPAY ==
[2025-06-27 17:05] LABS: Cancer Antigen 19 9 6.04 U/mL (0-35)
== END 2025-06-27 15:56 | disposition home or self-care (01) ==
LOC: LAB 15:58
PROVIDERS: PCP Family Medicine
DX: Z85.09 Personal history of malignant neoplasm of other digestive organs (principal); R93.3 Abnormal findings on diagnostic imaging of other parts of digestive tract; R79.89 Other specified abnormal findings of blood chemistry
CPT/HCPCS: 36415; 86301